=== PATIENT | male | born 1935 | race Caucasian/White ===

== ENCOUNTER 2016-10-27 15:36 | Inpatient (IN) ==
[2016-10-27] MEDS ORDERED: FUROSEMIDE 40 MG/4 ML VIAL IV ONE (16:09)
[2016-10-27] MEDS ORDERED: FLUCONAZOLE 200 MG/100 ML BAG IV SCH ×2 (16:15→19:11)
[2016-10-27 16:37] LABS: Basophils # (Auto) 0 K/mcL (0.0-0.3); Basophils % (Auto) 0.3 % (0.0-2.0); Eosinophils # (Auto) 0.1 K/mcL (0.0-0.7); Granulocytes % (Auto) 80.3 % (38.0-78.0); Lymphocytes # (Auto) 1.4 K/mcL (1.5-4.8); Lymphocytes % (Auto) 10.8 % (15.5-49.0); Mean Corpuscular HGB Conc 31.3 g/dL (31.0-36.0); Mean Corpuscular Hemoglobin 27.8 pg (26.0-34.0); Monocytes % (Auto) 7.6 % (1.0-12.0); Platelet Count 199 K/mcL (140-440); RBC 5.06 M/mcL (4.50-5.90); Red Cell Distribution Width 18.9 % (11.5-14.5)
--- NOTE | 2016-10-27 16:49 | XRay Report ---
CLINICAL INFORMATION: Dyspnea COMPARISON: 01/30/2013 FINDINGS: The heart is mildly enlarged - increased. Mediastinum is unremarkable. Pulmonary vessels are mildly distended. A 9 cm mass versus loculated pleural effusion in the right apex is new from the previous study. Scattered scarring in both mid and lower lung field seen - as before. No definite effusion IMPRESSION: 9 cm mass versus loculated pleural effusion in the right lung apex. Suggest chest CT Mild CHF Scattered scarring both mid and lower lungs stable Interpreted and Authenticated by: Medardo Solorzano 10/27/16
[2016-10-27 17:00] LABS: ALT/SGPT 12 U/l (0-40); Albumin 3.6 gm/dL (3.2-5.2); Albumin/Globulin Ratio 1.1 (1.0-2.3); Alkaline Phosphatase 95 U/L (39-117); Blood Urea Nitrogen 38 mg/dl (8-23)
[2016-10-27 17:08] LABS: Estimated Average Glucose(eAG) 189 mg/dL; Hemoglobin A1C 8.2 % HGB (4.0-6.0)
--- NOTE | 2016-10-27 18:05 | Emergency Department Note ---
SOB HPI - General Chief Complaint: Shortness of Breath/Dyspnea Stated Complaint: Shortness of breath Time Seen by Provider: 10/27/16 16:08 Source: patient Mode of arrival: wheelchair Limitations: no limitations - History of Present Illness 89-year-old male with 5 days of worsening shortness of breath with cyanosis. Normally he takes 2 L of oxygen 24 hours a day but here he is requiring 5. He reports weakness and short of breath with any exertion such that he has trouble getting out of his recliner and even walking 10 feet. worsening arthritis pain in his hands as well as noted. Denies fever chills nausea vomiting diarrhea. His legs have been restless all night. He is concerned about a rash on his buttocks that he thinks may be shingles but he has had the zoster vaccine. - Related Data Home Medications Medication Instructions Recorded Confirmed albuterol sulfate HFA 90 2 puff INHALATION ONCE PRN g 01/11/15 10/27/16 mcg/actuation aerosol inhaler cyclosporine 0.05 % eye drops in a 1 drp OPHTHALMIC BID drp 01/11/15 10/27/16 dropperette desonide 0.05 % topical cream 1 applic TOPICAL BID PRN g 01/11/15 10/27/16 desoximetasone 0.05 % topical cream 1 applic TOPICAL BID PRN g 01/11/15 dextran 70-hypromellose eye drops 1 drp OPHTHALMIC TID PRN ml 01/11/15 10/27/16 halobetasol propionate 0.05 % 1 applic TOPICAL QDAY PRN g 01/11/15 10/27/16 topical ointment metronidazole 1 % topical gel 1 applic TOPICAL QDAY PRN 63 Days 01/11/15 nitroglycerin 0.4 mg sublingual 0.4 mg SUBLINGUAL Q5-15MIN PRN tab 01/11/1511/07 tablet omeprazole 20 mg capsule,delayed 20 mg PO QDAY 14 Days 01/11/15 10/27/16 release triamcinolone Acetonide Topical 1 each TOPICAL PRN PRN 01/11/15 10/27/16 gabapentin 600 mg tablet 600 mg PO TID tab 01/15/15 10/27/16 fluticasone 250 mcg-salmeterol 50 1 inh INHALATION Q12H 02/20/15 10/27/16 mcg/dose blistr powdr for inhalation Fish Oil/Dha/Epa [Fish Oil 1,200 1 cap PO .QD cap 07/23/15 10/27/16 mg Fish Oil] Flaxseed Oil [Flax Seed Oil] 1,400 mg PO .QD cap 07/23/15 10/27/16 vitamin B complex tablet 1 tab-cap PO QDAY 09/17/15 10/27/16 calcium citrate 250 mg tablet 500 mg PO .3xweekly tab 01/14/16 10/27/16 cranberry extract 300 mg tablet 300 mg PO TID tab 01/14/16 10/27/16 cholecalciferol (vitamin D3) 1,000 1,000 unit PO QDAY cap 03/23/16 10/27/16 unit capsule loratadine 10 mg tablet 10 mg PO QDAY 05/19/16 10/27/16 pravastatin 20 mg tablet 10 mg PO QHS tab 05/19/16 10/27/16 betamethasone dipropionate 0.05 % 1 each TOPICAL PRN PRN 14 Days 10/13/16 topical cream Bumetanide [Bumex] 1 mg PO QDAY 10/27/16 10/27/16 Insulin Glargine,Hum.rec.anlog 42 unit SQ DAILY 10/27/16 10/27/16 [Lantus Solostar] Nebivolol HCl [Bystolic] 5 mg PO DAILY 10/27/16 10/27/16 Previous Rx's Medication Instructions Recorded glipizide 5 mg tablet 2.5 mg PO BID #60 tab 10/12/16 Allergies Allergy/AdvReac Type Severity Reaction Status Date / Time Amoxicillin Allergy Unknown Unknown Verified 10/27/16 15:45 atorvastatin [From Lipitor] Allergy Unknown Unknown Verified 10/27/16 15:45 levofloxacin [From Levaquin] Allergy Unknown Unknown Verified 10/27/16 15:45 tamsulosin [From Flomax] Allergy Unknown Unknown Verified 10/27/16 15:45 tramadol Allergy Unknown unknown Verified 10/27/16 15:45 albuterol sulfate Allergy Unknown Unknown Uncoded 05/19/16 11:40 Aspirin Allergy Unknown Unknown Uncoded 05/19/16 11:40 SULFA (SULFONAMIDES) Allergy Unknown Unknown Uncoded 05/19/16 11:40 Review of Systems All systems ED: reviewed and negative except as stated. Past Medical History - Past Medical History Attestation: Yes: The following information was validated with the patient. Medical history: Reports: arthritis, atrial fibrillation, cancer (Bladder cancer ), COPD, coronary artery disease, DVT, diabetes (With neuropathy and retinopathy ), hyperlipidemia, hypertension, myocardial infarction, renal disease, other ( Chester's esophagus. Hypokalemia. Anemia. Microscopic hematuria. Malignant neoplasm of the bladder. Ulcerative colitis. Vitamin D deficiency. Cerebrovascular disease. BPH) Surgical history ED: Reports: angioplasty/stent, colectomy, knee replacement, other (TURP. Carotid endarterectomy. Ileostomy. low Back surgery.) - Social History smoking status: Former smoker Physical Exam Ill-appearing cyanotic male in some respiratory distress. Normocephalic atraumatic. Conjunctive bilaterally injected mildly. Anicteric. No nasal discharge or congestion. Oropharynx is with dry buccal mucosa. Posterior pharynx is clear. Neck is supple without lymphadenopathy or thyromegaly. Heart is regular rate and rhythm no murmurs appreciated. Lungs are clear to auscultation bilaterally but somewhat shallow. No rales. Fingers and perioral area cyanotic this is improving with increased oxygen therapy via nasal cannula. Abdomen soft nontender nondistended. No peritoneal signs or guarding. +2 radial pulse. +1-2 pedal edema with chronic venous stasis changes. Alert oriented able to answer questions appropriately. Initially diaphoretic but this improved with oxygen therapy. No dysarthria ataxia confusion. Skin exam shows nonspecific rash above the buttock cleft without vesicles or ulcers-is not compatible with shingles. He is also got some serpiginous red rash on his legs with raised red borders consistent with Vicenta -more severe form of this is seen in the groin area with beefy red prominence intertrigonal-odor consistent with yeast as well. - General Limitations: no limitations Course Vital Signs Temperature 97.9 F 10/27/16 15:36 Pulse Rate 121 H 10/27/16 15:36 Respiratory Rate 25 H 10/27/16 15:36 Pulse Oximetry (%) 83 L 10/27/16 15:36 Temperature 98.4 F 10/27/16 23:42 Pulse Rate 100 H 10/28/16 06:45 Respiratory Rate 19 10/28/16 06:45 Blood Pressure 137/84 10/28/16 06:01 Pulse Oximetry (%) 91 10/28/16 06:45 Shortness of Breath/Dyspnea - Lab Data Lab results reviewed: Yes I reviewed the patient's lab results. Result diagrams: 10/28/16 03:43 10/28/16 03:43 Lab Results 10/27/16 10/27/16 10/27/16 Range/Units 15:49 15:49 15:49 WBC 12.9 H (4.5-11.0) K/mcL RBC 5.06 (4.50-5.90) M/mcL Hgb 14.1 (13.5-16.5) g/dL Hct 45.1 (41.0-55.0) % MCV 89.0 (80.0-100.0) fL MCH 27.8 (26.0-34.0) pg MCHC 31.3 (31.0-36.0) g/dL RDW 18.9 H (11.5-14.5) % Plt Count 199 (140-440) K/mcL MPV 9.3 (7.4-10.4) fL Gran % 80.3 H (38.0-78.0) % Lymph % (Auto) 10.8 L (15.5-49.0) % [place] % (Auto) 7.6 (1.0-12.0) % Eos % (Auto) 1.0 (0.0-7.0) % Baso % (Auto) 0.3 (0.0-2.0) % Gran # 10.4 H (1.8-8.0) K/mcL Lymph # 1.4 L (1.5-4.8) K/mcL [place] # 1.0 H (0.1-0.9) K/mcL Eos # 0.1 (0.0-0.7) K/mcL Baso # 0 (0.0-0.3) K/mcL VBG Lactic Acid 2.9 H (0.5-2.2) mmol/L Sodium 133 (133-145) mmol/L Potassium 4.9 (3.3-5.1) mmol/L Chloride 95 L (96-108) mmol/L Carbon Dioxide 19 L (22-30) mmol/L Anion Gap 19.0 H (8-16) BUN 38 H (8-23) mg/dl Creatinine 1.7 H (0.7-1.2) mg/dl GFR Calculation 38 Glucose 186 H (70-105) mg/dL Hemoglobin A1c 8.2 H (4.0-6.0) % HGB Estim Average Glucose 189 mg/dL Calcium 9.0 (8.6-10.4) mg/dl Total Bilirubin 0.8 (0.0-1.0) mg/dL AST 17 (0-37) U/l ALT 12 (0-40) U/l Alkaline Phosphatase 95 (39-117) U/L Troponin T (0-0.03) ng/ml NT-Pro-B Natriuret Pep 7715.0 H (0-450) pg/ml Total Protein 6.8 (5.9-8.4) gm/dL Albumin 3.6 (3.2-5.2) gm/dL Globulin 3.2 (2.2-3.7) gm/dL Albumin/Globulin Ratio 1.1 (1.0-2.3) /11/07 Range/Units 15:49 WBC (4.5-11.0) K/mcL RBC (4.50-5.90) M/mcL Hgb (13.5-16.5) g/dL Hct (41.0-55.0) % MCV (80.0-100.0) fL MCH (26.0-34.0) pg MCHC (31.0-36.0) g/dL RDW (11.5-14.5) % Plt Count (140-440) K/mcL MPV (7.4-10.4) fL Gran % (38.0-78.0) % Lymph % (Auto) (15.5-49.0) % [place] % (Auto) (1.0-12.0) % Eos % (Auto) (0.0-7.0) % Baso % (Auto) (0.0-2.0) % Gran # (1.8-8.0) K/mcL Lymph # (1.5-4.8) K/mcL [place] # (0.1-0.9) K/mcL Eos # (0.0-0.7) K/mcL Baso # (0.0-0.3) K/mcL VBG Lactic Acid (0.5-2.2) mmol/L Sodium (133-145) mmol/L Potassium (3.3-5.1) mmol/L Chloride (96-108) mmol/L Carbon Dioxide (22-30) mmol/L Anion Gap (8-16) BUN (8-23) mg/dl Creatinine (0.7-1.2) mg/dl GFR Calculation Glucose (70-105) mg/dL Hemoglobin A1c (4.0-6.0) % HGB Estim Average Glucose mg/dL Calcium (8.6-10.4) mg/dl Total Bilirubin (0.0-1.0) mg/dL AST (0-37) U/l ALT (0-40) U/l Alkaline Phosphatase (39-117) U/L Troponin T 0.03 (0-0.03) ng/ml NT-Pro-B Natriuret Pep (0-450) pg/ml Total Protein (5.9-8.4) gm/dL Albumin (3.2-5.2) gm/dL Globulin (2.2-3.7) gm/dL Albumin/Globulin Ratio (1.0-2.3) ABG shows pH 7.47 PCO2 34 PO2 of 65 on 5 L via facemask - Radiology Data Radiology results reviewed: Yes I reviewed the patient's radiology results. Chest x-ray shows a large 9 cm mass upper right lobe, along with stigmata of COPD. CT scan without contrast is done secondary to chronic renal disease this is read by Dr. 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 The CT read out came after the patient had already left our department and so I relayed these results to Dr. Blackwood the hospitalist - EKG Data EKG attestation: Yes I reviewed and interpreted this EKG. 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 was also given fluconazole for the yeast infection and furosemide for CHF After getting his results back I discussed his case with Dr. Blackwood who agreed to accept the patient for further care of the above-noted diagnosis Disposition: Xfer As Inpt ([facility]) Condition: Serious
[2016-10-27] MEDS ORDERED: HYPROMELLOSE OPHTHALMIC PRN (19:11)
[2016-10-27] MEDS ORDERED: MAGNESIUM HYDROXIDE 30 ML ORAL.SUSP PO PRN (19:11)
[2016-10-27] MEDS ORDERED: DEXTROSE 50% 50 ML VIAL IV PRN (19:11)
[2016-10-27] MEDS ORDERED: BISACODYL 10 MG SUPP.RECT PR PRN (19:11)
[2016-10-27] MEDS ORDERED: NALOXONE HCL 0.4 MG/ML VIAL IV PRN (19:11)
[2016-10-27] MEDS ORDERED: DEXTRAN OPHTHALMIC PRN (19:11)
[2016-10-27] MEDS ORDERED: ACETAMINOPHEN 325 MG TABLET PO PRN (19:11)
[2016-10-27] MEDS ORDERED: VANCOMYCIN PER PHARMACY IV SCH (19:11)
[2016-10-27] MEDS ORDERED: VANCOMYCIN 1,000 MG in 0.9 % SODIUM CHLORIDE 250 ML IV ONE (19:11)
[2016-10-27] MEDS ORDERED: ONDANSETRON 4 MG/2 ML VIAL IV PRN (19:11)
[2016-10-27] MEDS ORDERED: NITROGLYCERIN 0.4 MG TAB.SUBL SL PRN (19:11)
[2016-10-27] MEDS ORDERED: HYDROmorphone 2 MG/ML SYRINGE IV PRN (19:11)
[2016-10-27] MEDS ORDERED: [UNRECOGNIZED DRUG - OTHER] OPHTHALMIC PRN (19:11)
[2016-10-27] MEDS: IPRATROPIUM 2.5 ML AMPUL.NEB NEB SCH ×2 (20:08→23:27)
[2016-10-27] MEDS ORDERED: VANCOMYCIN 500 MG VIAL ONE (20:37)
[2016-10-27] MEDS ORDERED: PRAVASTATIN 20 MG TABLET PO SCH (21:00)
[2016-10-27] MEDS: FLUTICASONE/SALMETEROL 250/50 INHALER #14 INH SCH (21:41)
[2016-10-27] MEDS: INSULIN LISPRO 1 UNIT/0.01 ML UNIT SQ SCH (21:42)
[2016-10-27] MEDS ORDERED: IMIPENEM/CILASTATIN SODIUM 500 MG VIAL IV ONE (21:54)
[2016-10-27] MEDS: GABAPENTIN 300 MG CAPSULE PO SCH (21:55)
[2016-10-27] MEDS: HEPARIN 5,000 UNIT/ML VIAL SQ SCH (21:55)
[2016-10-27] MEDS: SIMVASTATIN 10 MG TABLET PO SCH (21:55)
--- NOTE | 2016-10-27 21:59 | Internal Med History&Physical ---
Medical - H&P: [facility] Patient information: Note initiated : 10/27/16 at 9:55 pm Service Date, if different from initiated Date: [] Patient: Partha Samuels 81 y/o M admitted on 10/27/16 for Shortness of breath. Chief Complaint: [] History of present illness: Mr. Samuels is a 81 year old male with multiple medical issues. presented to the ER with shortness of breath, increased generalized pain, and subjective sensation of pain and fever. The patient notes that he was doing well approximately upto 2 weeks ago, and since then he has been having gradual decline in his condition. He has intermittent bouts of shortness of breath. He admits to having cough with whitish greyish sputum, fever with temp of 99, chills and intermittent rigors. The patient is a poor historian and had significant tangentiality to his history. He notes that some times he gets sob while passing urine. but denies any burning urine, foul smelling urine or increased frequency of urination. He denies any abdominal pain, nausea and or vomiting. He has a ileostomy in place, but denies any change in bowel habits. The patient in the ER was noted to be tachycardic and tachypneic, the patient had elevated wbc count, elevated lactic acid, elevated gap, pt was at baseline renal function, had elevated BNP. CXR was reported as possible abscess in the right upper lobe. CT scan of the Chest shows a cavitary mass in the right upper lobe (night hawk read). Patient as admitted to the hospital with diagnosis of PNA, new onset mass (squamous cell Ca) All systems: reviewed and no additional remarkable complaints except as stated ( as in HPI) Medical - H&P: [facility] Medical history: Medical History (Last Updated 10/27/16 @ 18:20 by Kenton Chester MD) Cellulitis (Acute) Chester esophagus (Chronic) Hypokalemia (Chronic) Edema (Chronic) Anemia (Chronic) History of bladder surgery (Chronic 04/17/14) Microscopic hematuria (Chronic 01/27/12) Old myocardial infarction (Chronic) Microalbuminuria (Chronic 10/27/11) Malignant neoplasm of bladder (Chronic 08/04/13) 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) Pain in joint, lower leg (Chronic) Nocturia (Chronic 01/26/12) Obesity (Chronic) Peripheral neuropathy (Chronic) Retinopathy, diabetic, background (Chronic) Ileostomy care (Chronic) Ulcerative colitis (Chronic) Vitamin D deficiency (Chronic) Hypertension, essential (Chronic) Diabetes mellitus with ophthalmic manifestation (Chronic) Hypertensive chronic kidney disease (Chronic) HTN (hypertension) (Chronic) Hematuria, gross (Chronic) 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) Diabetes mellitus, type II (Chronic) Hyperlipidemia (Chronic 10/27/11) Degenerative disc disease, cervical (Chronic) Deep vein thrombosis (Chronic) [place] ulcerative colitis (Chronic) Chronic obstructive pulmonary disease (Chronic) Chronic kidney disease, stage III (moderate) (Chronic) Cerebrovascular disease (Chronic) Bronchitis (Chronic) Benign prostatic hypertrophy with lower urinary tract symptoms (LUTS) (Chronic) Atrial fibrillation (Chronic) Surgical history: Past Surgical History (Last Reviewed 10/13/16 @ 15:08 by Sarah Villalta MD) History of transurethral destruction of bladder lesion (Chronic 04/17/14) History of percutaneous coronary intervention (Chronic) History of carotid endarterectomy (Chronic) History of knee surgery (Chronic) History of knee replacement procedure of left knee (Chronic) History of knee replacement procedure of right knee (Chronic 12/18/11) History of ileostomy (Chronic) History of colectomy (Chronic) History of heart artery stent (Chronic 04/17/14) S/P skin biopsy (Chronic) History of tonsillectomy (Chronic) History of back surgery (Chronic) History of adenoidectomy (Chronic) Family history: reviewed and not pertinent Medical - H&P: Meds Home Medications Medication Instructions Recorded Confirmed Type albuterol sulfate HFA 90 2 puff INHALATION ONCE PRN g 01/11/15 10/27/16 History mcg/actuation aerosol inhaler cyclosporine 0.05 % eye drops in a 1 drp OPHTHALMIC BID drp 01/11/15 10/27/16 History dropperette desonide 0.05 % topical cream 1 applic TOPICAL BID PRN g 01/11/15 10/27/16 History desoximetasone 0.05 % topical cream 1 applic TOPICAL BID PRN g 01/11/15 History dextran 70-hypromellose eye drops 1 drp OPHTHALMIC TID PRN ml 01/11/15 History halobetasol propionate 0.05 % 1 applic TOPICAL QDAY PRN g 01/11/15 10/27/16 History topical ointment metronidazole 1 % topical gel 1 applic TOPICAL QDAY PRN 63 Days 01/11/15 History nitroglycerin 0.4 mg sublingual 0.4 mg SUBLINGUAL Q5-15MIN PRN tab 01/11/1511/07 History tablet omeprazole 20 mg capsule,delayed 20 mg PO QDAY 14 Days 01/11/15 10/27/16 History release triamcinolone Acetonide Topical TOPICAL PRN 01/11/15 10/13/16 History gabapentin 600 mg tablet 600 mg PO TID tab 01/15/15 10/27/16 History fluticasone 250 mcg-salmeterol 50 1 inh INHALATION Q12H 02/20/15 10/27/16 History mcg/dose blistr powdr for inhalation Fish Oil/Dha/Epa [Fish Oil 1,200 1 cap PO .QD cap 07/23/15 10/27/16 History mg Fish Oil] Flaxseed Oil [Flax Seed Oil] 1,400 mg PO .QD cap 07/23/15 10/27/16 History vitamin B complex tablet 1 tab-cap PO QDAY 09/17/15 10/27/16 History calcium citrate 250 mg tablet 500 mg PO .3xweekly tab 01/14/16 10/27/16 History cranberry extract 300 mg tablet 300 mg PO TID tab 01/14/16 10/27/16 History cholecalciferol (vitamin D3) 1,000 1,000 unit PO QDAY cap 03/23/16 10/27/16 History unit capsule loratadine 10 mg tablet 10 mg PO QDAY 05/19/16 10/27/16 History pravastatin 20 mg tablet 10 mg PO QHS tab 05/19/16 10/27/16 History glipizide 5 mg tablet 2.5 mg PO BID #60 tab 10/12/16 10/27/16 Rx betamethasone dipropionate 0.05 % TOPICAL 14 Days 10/13/16 10/13/16 History topical cream Bumetanide [Bumex] 1 mg PO QDAY 10/27/16 10/27/16 History Insulin Glargine,Hum.rec.anlog 42 unit SQ DAILY 10/27/16 10/27/16 History [Lantus Solostar] Nebivolol HCl [Bystolic] 5 mg PO DAILY 10/27/16 10/27/16 History Allergies Allergy/AdvReac Type Severity Reaction Status Date / Time Amoxicillin Allergy Unknown Unknown Verified 10/27/16 15:45 atorvastatin [From Lipitor] Allergy Unknown Unknown Verified 10/27/16 15:45 levofloxacin [From Levaquin] Allergy Unknown Unknown Verified 10/27/16 15:45 tamsulosin [From Flomax] Allergy Unknown Unknown Verified 10/27/16 15:45 tramadol Allergy Unknown unknown Verified 10/27/16 15:45 albuterol sulfate Allergy Unknown Unknown Uncoded 05/19/16 11:40 Aspirin Allergy Unknown Unknown Uncoded 05/19/16 11:40 SULFA (SULFONAMIDES) Allergy Unknown Unknown Uncoded 05/19/16 11:40 Medical - H&P: Exam - Constitutional Vitals: Temp Pulse Resp BP Pulse Ox 97.9 F 96 H 16 137/90 93 10/27/16 15:36 10/27/16 20:16 10/27/16 20:16 10/27/16 18:31 10/27/16 20:11 Exam: GENERAL: The patient is a well-developed, well-nourished in no apparent distress. Is alert and oriented x3. VITAL SIGNS: Reviewed and as noted elsewhere. HEENT: Head is normocephalic and atraumatic. Extraocular muscles are intact. Pupils are equal, round, and reactive to light. Nares appeared normal. Mouth appears any without lesions. Mucous membranes are moist. NECK: Normal to inspection, Supple, No lymphadenopathy or thyromegaly. LUNGS: Air entry equal on both sides, no wheezing, crackles or rhonchi noted. No accessory muscles of respiration HEART: Regular rate and rhythm irregular , S1 and S2 heard, no Gallop, S3 or Rub Noted, systolic murmur tricuspid region. Edema [place] extremities +++ ABDOMEN: Soft, nontender, and nondistended. Positive bowel sounds. No hepatosplenomegaly was noted. EXTREMITIES: No cyanosis, clubbing, rash, lesions or edema. NEUROLOGIC: Cranial nerves II through XII are grossly intact. Motor and Sensory System Grossly Intact PSYCHIATRIC: Normal affect, Normal Mood. Appropriate Behavior. SKIN: No ulceration or wounds noted, No jaundice, significant perineal rash noted Medical - H&P: Reslt - Labs CBC & Chem 7: 10/27/16 15:49 10/27/16 15:49 - ABG Interpretation ABG results: resp aklalosis, metabolic alkalosis, high gap acidosis. Medical - H&P: A/P - Narrative A/P Narrative: Left lung mass / abscess/ : Will review results with radiology in AM, will consider Bx vs drainage. If it is indeed a squamous cell Ca based on appearance , Lymph node and satellite lesion, then the patient would have very poor prognosis given overall poor health. COPD: On 2L oxygen, CT shows severe emphysematous Pneumonia: Elevated wbc, elevated lactic acid and mass in lung make post obstructive pna vs abscess. IV vanco and imipenum for now to cover HCAP. (pt allergic to amox) Recheck lactic acid in AM, pt has normal bp and has ckd, which can cause elevated renal function. Recheck lactic acid in AM Sepsis: due to pna, treat underlying condition. Mointor. CHF/ Cor Pulmonale: patient has elevated bnp, edematous extremities. IV lasix for now, continue home dose of bumex, elizabeth in place I/O mointoring. CAD: last stress test shows inferior lateral reversible ischemic region, not cath done as per last card note. medical management planned. h/o Ca Bladder: s/p cisplatin, patient did not tolerate course, follows with urology. DM: Sliding scale of insulin HTN: Resume home medications. monitor bp. Ulcerative colitis: patient is s/p colectomy has a ileostomy in place. AFib: rate controlled with beta blockers, not a candidate for anticoagulation as per last cardiolgoy note. DVT hep sq Diet cardiac, diabetic, Social History - Tobacco smoking status: Former smoker - Alcohol alcohol intake frequency: former alcohol drinker
[2016-10-27] MEDS: 0.9 % SODIUM CHLORIDE 10 ML SYRINGE IV SCH (22:02)
[2016-10-27] MEDS: IMIPENEM/CILASTATIN SODIUM 500 MG in 0.9 % SODIUM CHLORIDE 100 ML IV SCH (22:04)
[2016-10-28] MEDS: IPRATROPIUM 2.5 ML AMPUL.NEB NEB SCH ×6 (02:59→23:11)
[2016-10-28 04:59] LABS: Appearance,Urine HAZY; Bacteria,Urine 0 /hpf (0); Bilirubin,Urine NEG (NEG); Color,Urine YELLOW; Glucose,Urine (UA) 50 mg/dL (NEG); Leukocyte Esterase,Urine 25 /uL (NEG); Mucus,Urine FEW /hpf (0); Nitrate,Urine NEG (NEG); Protein,Urine 30 mg/dL (NEG); Specific Gravity,Urine 1.014 (1.000-1.035); Urine Blood 0.03 mg/dL (<0.03); Urine Hyaline Cast 3 /lpf (0-2); Urine RBC 18 /hpf (0-1); Urine Squamous Epithelial Cell 0 /hpf (0-4); Urine Transitional Epi Cells < 1 /hpf (0-2); Urine WBC 3 /hpf (0-4); Urobilinogen,Urine NEG (NEG)
[2016-10-28 05:10] LABS: Basophils # (Auto) 0 K/mcL (0.0-0.3); Basophils % (Auto) 0.4 % (0.0-2.0); Eosinophils # (Auto) 0.2 K/mcL (0.0-0.7); Eosinophils % (Auto) 1.7 % (0.0-7.0); Granulocytes % (Auto) 82.4 % (38.0-78.0); Lymphocytes % (Auto) 8.6 % (15.5-49.0); Mean Cell Volume 89.3 fL (80.0-100.0); Mean Corpuscular HGB Conc 31.5 g/dL (31.0-36.0); Mean Corpuscular Hemoglobin 28.1 pg (26.0-34.0); Monocytes # (Auto) 0.8 K/mcL (0.1-0.9); Monocytes % (Auto) 6.9 % (1.0-12.0); Platelet Count 186 K/mcL (140-440); RBC 4.79 M/mcL (4.50-5.90); Red Cell Distribution Width 18.7 % (11.5-14.5)
[2016-10-28 05:32] LABS: ALT/SGPT 11 U/l (0-40); Albumin 3.1 gm/dL (3.2-5.2); Albumin/Globulin Ratio 0.9 (1.0-2.3); Alkaline Phosphatase 88 U/L (39-117); Bilirubin,Direct 0.3 mg/dL (0.0-0.3); Blood Urea Nitrogen 36 mg/dl (8-23); Gamma Glutamyl Transpeptidase 71 U/L (8-61); Magnesium 1.6 mg/dL (1.6-2.5); Uric Acid 11.2 mg/dL (2.5-8.0)
[2016-10-28 06:01] LABS: Hemoglobin A1C 8.3 % HGB (4.0-6.0)
[2016-10-28] MEDS ORDERED: MAGNESIUM SULFATE 2 GM/50 ML BAG IV ONE (08:06)
[2016-10-28] MEDS: 0.9 % SODIUM CHLORIDE 10 ML SYRINGE IV SCH ×3 (08:11→22:12)
[2016-10-28] MEDS: INSULIN LISPRO 1 UNIT/0.01 ML UNIT SQ SCH ×4 (08:11→20:47)
[2016-10-28] MEDS: HEPARIN 5,000 UNIT/ML VIAL SQ SCH ×2 (08:31→20:31)
[2016-10-28] MEDS: GABAPENTIN 300 MG CAPSULE PO SCH ×3 (08:32→20:31)
[2016-10-28] MEDS: PANTOPRAZOLE 40 MG TABLET PO SCH (08:32)
[2016-10-28] MEDS: LORATADINE 10 MG TABLET PO SCH (08:32)
[2016-10-28] MEDS: BUMETANIDE 1 MG TABLET PO SCH (08:32)
[2016-10-28] MEDS: FLUTICASONE/SALMETEROL 250/50 INHALER #14 INH SCH ×3 (08:33→20:32)
[2016-10-28] MEDS: IMIPENEM/CILASTATIN SODIUM 500 MG in 0.9 % SODIUM CHLORIDE 100 ML IV SCH ×2 (08:36→20:33)
[2016-10-28] MEDS ORDERED: NEBIVOLOL HCL 5 MG PO SCH (09:00)
[2016-10-28] MEDS ORDERED: OMEPRAZOLE 20 MG CAPSULE PO SCH (09:00)
--- NOTE | 2016-10-28 10:52 | Internal Med Progress Note ---
Medical - PN: Subj Patient information: Note initiated : 10/28/16 at 10:38 am Service Date, if different from initiated Date: [] Patient: Partha Samuels 81 y/o M admitted on 10/27/16 for SOB/Lt Lung Mass, COPD , PNA, Sepsis, CHF. Chief Complaint: [] Interval history: Mr. Samuels is a 81 year old male with multiple medical issues. presented to the ER with shortness of breath, increased generalized pain, and subjective sensation of pain and fever. The patient notes that he was doing well approximately upto 2 weeks ago, and since then he has been having gradual decline in his condition. He has intermittent bouts of shortness of breath. He admits to having cough with whitish greyish sputum, fever with temp of 99, chills and intermittent rigors. The patient is a poor historian and had significant tangentiality to his history. He notes that some times he gets sob while passing urine. but denies any burning urine, foul smelling urine or increased frequency of urination. He denies any abdominal pain, nausea and or vomiting. He has a ileostomy in place, but denies any change in bowel habits. The patient in the ER was noted to be tachycardic and tachypneic, the patient had elevated wbc count, elevated lactic acid, elevated gap, pt was at baseline renal function, had elevated BNP. CXR was reported as possible abscess in the right upper lobe. CT scan of the Chest shows a cavitary mass in the right upper lobe (night hawk read). Patient as admitted to the hospital with diagnosis of PNA, new onset mass (squamous cell Ca) October 27: Patient seen examined, no acute overnight events, remains of 5L oxygen. He denies any new concerns. I reviewed the CT findings with him of possible mass vs abscess. I reviewed the CT with our radiologist who feels that this is abscess rather than a tumor. Night hawk read mentions likely malignant tumor. The radiologist does not feel that the mass/ abscess can be drained given severe empysema and risk of coverting abscess to empyema. patient remains on broad spectrum ABX vanco and imipenum. The patient remains of lasix for chf and corpulmonale. Hemodynamically stable. I have consulted pulmonary for their guidance. Plan to sent fungal culture and stain, also afb and quantiferon which has been ordered. Pt placed in air borne isolation. Pertinent ROS: Denies headache, dizziness Denies chest pain, palpitations cough and sob improving. Denies abdominal pain, nausea or vomiting. - Constitutional Vitals: Vital Signs Temp Pulse Resp BP Pulse Ox 99.5 F H 98 H 16 130/79 90 10/28/16 07:15 10/28/16 10:15 10/28/16 10:15 10/28/16 10:01 10/28/16 10:16 Period Temp Pulse Resp BP Sys/[place] Pulse Ox Last 24 Hr 97.7 F-99.5 F 68-104 15-24 120-150/77-104 89-99 Intake and Output 10/27/16 10/28/16 10/28/16 21:59 05:59 13:59 Intake Total 300 / 300 300 / 300 100 / 100 Output Total 500 / 750 1140 / 1140 80 / 80 Balance -200 / -450 -840 / -840 20 / 20 Intake & Output: Intake & Output 10/27/16 10/28/16 10/28/16 21:59 05:59 13:59 Intake Total 300 / 300 300 / 300 100 / 100 Output Total 500 / 750 1140 / 1140 80 / 80 Balance -200 / -450 -840 / -840 20 / 20 Intake: IV 100 / 100 100 / 100 Primaxin 500 mg In Sodium 100 / 100 Chloride 0.9% 100 ml @ 100 mls/hr IV Q12H [facility] Rx #:[id number] Oral 200 / 200 300 / 300 Output: Urine Catheter Amount 350 / 350 940 / 940 80 / 80 Void Amount 150 / 400 Stool 200 / 200 Exam: Constitutional; Afebrile, cooperative, alert, not in distress. Eyes- No icterus, , No periorbital swelling Ears- Ext ear normal, hearing normal to conversation. Neck- Midline trachea, supple Respiratory system: Air Entry equal on both sides, decreased air entry. mild basilar crackles. Juan Ramon edema CVS- Rate normal rhythm irregular, S1,S2 heard, no gallop, no rub. Abdomen- Soft nontender abdomen, no organomegaly, no tenderness, no guarding or rigidity, [employer]- AOOx3, moving all extremities, no gross focal deficit noted. Medical - PN: Obj Da - Labs CBC & Chem 7: 10/28/16 03:43 10/28/16 03:43 Labs: Abnormal Lab Results 10/28/16 10/28/16 10/28/16 03:43 03:43 03:43 RDW Gran % Lymph % (Auto) Gran # Lymph # PT 18.5 H INR 1.5 H BUN 36 H Creatinine 1.6 H Glucose 128 H Hemoglobin A1c 8.3 H Uric Acid 11.2 H GGT 71 H Lactate Dehydrogenase 348 H Albumin 3.1 L Albumin/Globulin Ratio 0.9 L Urine Protein Urine Glucose (UA) Urine Occult Blood Ur Leukocyte Esterase Urine RBC Hyaline Casts 10/28/16 10/28/16 03:43 03:20 RDW 18.7 H Gran % 82.4 H Lymph % (Auto) 8.6 L Gran # 9.1 H Lymph # 1.0 L PT INR BUN Creatinine Glucose Hemoglobin A1c Uric Acid GGT Lactate Dehydrogenase Albumin Albumin/Globulin Ratio Urine Protein 30 A Urine Glucose (UA) 50 A Urine Occult Blood 0.03 A Ur Leukocyte Esterase 25 A Urine RBC 18 H Hyaline Casts 3 H Meds: Medications Acetaminophen (Tylenol) 650 mg PO Q4-6HP PRN PRN Reason: PAIN/FEVER > 101 Bisacodyl (Dulcolax) 10 mg IN Q2-3DAYS PRN PRN Reason: Constipation Bumetanide (Bumex) 1 mg PO QDAY [facility] Last Admin: 10/28/16 08:32 Dose: 1 mg Dextrose (Dextrose 50%) 0 ml IV UD PRN PRN Reason: Hypoglycemia Diagnostic Test (Pha) (Accu-Chek) 1 each FS ACHS [facility] Last Admin: 10/28/16 08:10 Dose: 1 each Gabapentin (Neurontin) 600 mg PO TID [facility] Last Admin: 10/28/16 08:32 Dose: 600 mg Heparin Sodium (Porcine) (Heparin) 5,000 unit SQ Q12 [facility] Last Admin: 10/28/16 08:31 Dose: 5,000 unit Hydromorphone HCl (Dilaudid) 0.5 mg IV Q2HP PRN PRN Reason: Pain Imipenem/Cilastatin Sodium 500 (mg/ Sodium Chloride) 100 mls @ 100 mls/hr IV Q12H [facility] Last Infusion: 10/28/16 09:46 Dose: Infused Vancomycin HCl 1,500 mg/ (Sodium Chloride) 500 mls @ 333.3 mls/hr IV Q24H [facility] Insulin Human Lispro (Humalog) 0 unit SQ ACHS [facility]TTE PRN Reason: Protocol Last Admin: 10/28/16 08:11 Dose: Not Given Ipratropium [place] (Atrovent) 2.5 ml NEB Q4HRT [facility] Last Admin: 10/28/16 07:22 Dose: 2.5 ml Loratadine (Claritin) 10 mg PO QDAY [facility] Last Admin: 10/28/16 08:32 Dose: 10 mg Magnesium Hydroxide (Milk Of Magnesia) 30 ml PO DAILYP PRN PRN Reason: Constipation Naloxone HCl (Narcan) 0.1 mg IV Q2MIN PRN PRN Reason: Opiate Reversal Nitroglycerin (Nitrostat) 0.4 mg SL Q5-15MIN PRN PRN Reason: chest pain Non-Formulary Medication (Dextran 70/Hypromellose [Artificials Tears Drops]) 1 drp OPHTHALMIC TID PRN PRN Reason: dry eyes Ondansetron HCl (Zofran) 4 mg IV Q4-6HP PRN PRN Reason: Nausea And Vomiting Pantoprazole Sodium (Protonix) 40 mg PO QAMAC [facility] Last Admin: 10/28/16 08:32 Dose: 40 mg Nebivolol Hcl [ (Bystolic] 5 Mg) 1 dose PO BID [facility] Bismuth Subgallate ( (Devrom) 200 Mg Tab) 2 dose PO TIDPC [facility] Fluticasone/Salmeterol (Advair 250-50 Diskus) 1 puff INH Q12 [facility] Last Admin: 10/28/16 08:33 Dose: Not Given Simvastatin (Zocor) 10 mg PO HS [facility] Last Admin: 10/27/16 21:55 Dose: 10 mg Sodium Chloride (Saline Flush) 10 ml IV Q8 [facility] Last Admin: 10/28/16 08:11 Dose: 10 ml Vancomycin HCl (Vancomycin Per Pharmacy) 1 order IV UD [facility] Medical - PN: A/P - Time Spent With Patient Total time spent is greater than 50% in coordination of care (as documented) at patient's floor/unit and/or counseling patient: - Narrative A/P Narrative: A/P Narrative: Left lung mass / abscess/ : Drainage not possible as per radiology, Will get pulm consult and see if bronchoscopic drainage / access or biopsy possible to ascertain the diagnosis. Acute on Chr Resp Failure: At home on 2L, presently on 5,. due to copd, chf, and pna. COPD: On 2L oxygen at home, CT shows severe emphysematous Pneumonia: wbc improved, continue vanco and imipenum (mrsa screen positive) will await cultures. Pulm consult, will send workup for tb, fungal culture and stain. Sepsis: due to pna, improving, urine cx pending. CHF/ Cor Pulmonale: patient has elevated bnp, edematous extremities. IV lasix for now, continue home dose of bumex, elizabeth in place I/O mointoring. CAD: last stress test shows inferior lateral reversible ischemic region, not cath done as per last card note. medical management planned. NO CP. h/o Ca Bladder: s/p cisplatin, patient did not tolerate course, follows with urology. DM: Sliding scale of insulin HTN: Resume home medications. monitor bp. Ulcerative colitis: patient is s/p colectomy has a ileostomy in place. AFib: rate controlled with beta blockers, not a candidate for anticoagulation as per last cardiology note. DVT hep sq Diet cardiac, diabetic, Medical - PN: Qual - VTE Deep Vein Thrombosis/Pulmonary Embolism Present on Admission: No
[2016-10-28] MEDS: NEBIVOLOL HCL 5 MG PO SCH ×2 (10:53→20:35)
[2016-10-28] MEDS: BISMUTH SUBGALLATE PO SCH ×2 (12:40→17:45)
--- NOTE | 2016-10-28 13:41 | Cat Scan Report ---
CLINICAL INFORMATION: Shortness of breath COMPARISON: 03/02/[address] TECHNIQUE: 2.5 mm axial slices were obtained from the lung apices through the bases without intravenous contrast. Sagittal, coronal and axial reformatted images were processed and reviewed at bone, lung and soft tissue windows. 7 mm axial MIP images were also reconstructed. FINDINGS: Pulmonary parenchymal windows again show severe centrilobular emphysema changes featuring elevated lung volumes, chronic bronchitis and multiple bullae replacing most of the upper lobes with scattered bullae in the right middle and both lower lobes. There is now fluid almost totally filling a large (9 cm) pre-existing large bullae in the lateral right lung apex. The perales of bullae are mildly thickened and nodular compatible with inflammation. A 5 x 2 cm elongated region of consolidation, in the adjacent inferior lung parenchyma almost certainly represents pneumonia rather than malignancy. There is mild interstitial disease in the periphery of both lungs - new from the previous study and is suggestive of edema. Central pulmonary artery is enlarged - 4 cm diameter. It has increased from previous study, bowel are today's exam the peripheral pulmonary arteries have also increased in diameter. This in conjunction, with peripheral interstitial atypically distributed edema is compatible with superimposed CHF. The heart is moderately enlarged and there is heavy calcific plaque in the coronary arteries. A few mildly enlarged lymph nodes are seen in the right hilum and right mediastinum. There are 4-5 in number, ranging up to 13 mm in the right peritracheal region. These show slight increase in size and number from the previous study. They're likely benign reactive lymph nodes. Esophagus is normal. The noncontrasted thoracic aorta is normal in contour and caliber. The thyroid is normal. Images through the upper abdomen show small amount of ascites in the anterior perihepatic and perisplenic region. The remaining visualized upper abdominal structures are normal. Bones and soft tissues the chest wall are normal IMPRESSION: 1. Severe centrilobular emphysema. There is now fluid almost totally filling a pre-existing 9 cm bullae in the lateral right upper lobe. This is most supportive of infection. A 5 x 2 cm focal consolidating infiltrate is seen in the adjacent right upper lobe. 2. Atypical CHF. Pre-existing pulmonary hypertension is acknowledged; however, the pulmonary arteries now show global enlargement since the baseline CT and there is interstitial edema atypically distributed due to obstructive lung disease. The heart is moderately enlarged 3. Mildly enlarged lymph nodes in the right hilum and right mediastinum show slight increase in size compared to the prior chest CT seven months prior. These are likely benign reactive lymph nodes. 4. Small amount of ascites - new from comparison CT seven months ago Elevated risk factors for lung carcinoma are appreciated. Consider follow-up chest CT to ensure resolution of these findings after treatment for pneumonia and CHF Interpreted and Authenticated by: Medardo Solorzano 10/28/16
--- NOTE | 2016-10-28 14:59 | Pulmonology Consult Note ---
History of Present Illness Patient information: Note initiated : 10/28/16 at 2:48 pm Service Date, if different from initiated Date: [] Patient: Partha Samuels 81 y/o M admitted on 10/27/16 for SOB/Lt Lung Mass, COPD , PNA, Sepsis, CHF. Chief Complaint: [] Consult date: 10/28/16 Requesting physician: Yusef Blackwood Chief complaint: Cough sputum production chills generally feeling unwell History of present illness: The patient is a pleasant 81-year-old male who presented to [facility] yesterday because of a chief complaint of generally feeling unwell chills cough sputum production. He was evaluated in the emergency room at which time he was found by CT scan to have a large fluid-filled cavity in his right upper lobe. He was considered a candidate for further admission and evaluation. He was initiated on broad-spectrum antibiotics with vancomycin and meropenem having previous recorded infection with methicillin-resistant staph aureus.. The patient states that he has been unwell for almost a year and not enjoying life much he is apparently had recent difficulty with bladder carcinoma contributing to that situation. He has a history of colitis and ileostomy as well. Unfortunately he has smoked an extensive amount in his previous years and has CT demonstrated significant bullous emphysema. The CT scan demonstrates in the right upper lobe a large fluid-filled cavity which in some parts appears to be relatively thin-walled there appears to be a polypoid mass in part of the lesion as well. The patient denies unusual pets plants or birds in the home other significant industrial exposures. He denies unusual travel. He denies having known exposure to tuberculosis or previous PPD skin testing. He indicates that he is unable to lay flat to sleep because of shortness of breath and has been sleeping in his recliner for 1-2 years. He does have some symptomatic gastroesophageal reflux disease as well. He reports a history of atherosclerotic heart disease with previous myocardial infarction and variable amounts dependent edema on diuretic therapy. Medical regimen is as reviewed and outlined in the medical record.. Systems review is otherwise negative except as recorded above on detailed questioning.. On physical examination pleasant gentleman a little hard of hearing in no acute distress. Head is atraumatic and normocephalic. Eyes PERRLA EOMI sclera and conjunctiva clear. Neck supple carotids without bruits. Lungs moderately to markedly decreased breath sounds in all lung matos with occasional rhonchus. Heart regular S1-S2 no gallop or rub jugular venous distention a trace of what looks like partially resolved dependent edema at this time in his hospitalization. The abdomen is soft there is an ileostomy with some ora-ostomy subcutaneous edema or para-ostomy hernia. Bones joints and extremities are without acute changes.. Neurologic exam is nonfocal. Laboratory data is recorded in the electronic medical record by some miracle of the electronic medical record may be recorded hereafter. Showing small white count improved slightly elevated INR and mild renal insufficiency. As well as a significantly elevated BNP in the 7000 range. Impression 81-year-old gentleman with known severe emphysematous chronic obstructive pulmonary disease now presenting with fluid in 1 of these. The differential would include an infected emphysematous bullae normal aerobic bacteria anerobes; chronically infected bullae with aspergillus or avium intracellulare a more acute infection with other Mycobacterium species. Agree with plan for broad-spectrum antibiotics ruling out Mycobacterium tuberculosis collecting sputum for acid-fast bacteria aerobic ordinary bacteria and fungal species. I will discuss and follow with thank you for the opportunity to participate in care of this pleasant patient. Medications and Allergies Home Medications Medication Instructions Recorded Confirmed Type albuterol sulfate HFA 90 2 puff INHALATION ONCE PRN g 01/11/15 10/27/16 History mcg/actuation aerosol inhaler cyclosporine 0.05 % eye drops in a 1 drp OPHTHALMIC BID drp 01/11/15 10/27/16 History dropperette desonide 0.05 % topical cream 1 applic TOPICAL BID PRN g 01/11/15 10/27/16 History desoximetasone 0.05 % topical cream 1 applic TOPICAL BID PRN g 01/11/15 History dextran 70-hypromellose eye drops 1 drp OPHTHALMIC TID PRN ml 01/11/15 History halobetasol propionate 0.05 % 1 applic TOPICAL QDAY PRN g 01/11/15 10/27/16 History topical ointment metronidazole 1 % topical gel 1 applic TOPICAL QDAY PRN 63 Days 01/11/15 History nitroglycerin 0.4 mg sublingual 0.4 mg SUBLINGUAL Q5-15MIN PRN tab 01/11/1511/07 History tablet omeprazole 20 mg capsule,delayed 20 mg PO QDAY 14 Days 01/11/15 10/27/16 History release triamcinolone Acetonide Topical 1 each TOPICAL PRN PRN 01/11/15 10/27/16 History gabapentin 600 mg tablet 600 mg PO TID tab 01/15/15 10/27/16 History fluticasone 250 mcg-salmeterol 50 1 inh INHALATION Q12H 02/20/15 10/27/16 History mcg/dose blistr powdr for inhalation Fish Oil/Dha/Epa [Fish Oil 1,200 1 cap PO .QD cap 07/23/15 10/27/16 History mg Fish Oil] Flaxseed Oil [Flax Seed Oil] 1,400 mg PO .QD cap 07/23/15 10/27/16 History vitamin B complex tablet 1 tab-cap PO QDAY 09/17/15 10/27/16 History calcium citrate 250 mg tablet 500 mg PO .3xweekly tab 01/14/16 10/27/16 History cranberry extract 300 mg tablet 300 mg PO TID tab 01/14/16 10/27/16 History cholecalciferol (vitamin D3) 1,000 1,000 unit PO QDAY cap 03/23/16 10/27/16 History unit capsule loratadine 10 mg tablet 10 mg PO QDAY 05/19/16 10/27/16 History pravastatin 20 mg tablet 10 mg PO QHS tab 05/19/16 10/27/16 History glipizide 5 mg tablet 2.5 mg PO BID #60 tab 10/12/16 10/27/16 Rx betamethasone dipropionate 0.05 % 1 each TOPICAL PRN PRN 14 Days 10/13/16 History topical cream Bumetanide [Bumex] 1 mg PO QDAY 10/27/16 10/27/16 History Insulin Glargine,Hum.rec.anlog 42 unit SQ DAILY 10/27/16 10/27/16 History [Lantus Solostar] Nebivolol HCl [Bystolic] 5 mg PO BID 10/27/16 10/28/16 History Bismuth Subgallate 400 mg PO TIDPC 10/28/16 10/28/16 History Allergies Allergy/AdvReac Type Severity Reaction Status Date / Time Sulfa (Sulfonamide Allergy Intermediate Hives Verified 10/28/16 10:18 Antibiotics) tamsulosin [From Flomax] Allergy Intermediate Other Verified 10/28/16 10:25 ticagrelor [From Brilinta] Allergy Mild Hives Verified 10/28/16 10:25 atorvastatin [From Lipitor] Allergy Unknown Unknown Verified 10/28/16 10:25 levofloxacin [From Levaquin] AdvReac Intermediate Other Verified 10/28/16 10:25 tramadol AdvReac Intermediate Other Verified 10/28/16 10:25 Amoxicillin AdvReac Mild Dizziness Verified 10/28/16 10:25 aspirin AdvReac Mild Other Verified 10/28/16 10:18 albuterol sulfate Allergy Unknown Unknown Uncoded 10/28/16 10:25 Physical Examination Vital signs: Temp Pulse Resp BP Pulse Ox 99.1 F H 100 H 20 98/65 92 10/28/16 12:00 10/28/16 14:03 10/28/16 14:03 10/28/16 14:01 10/28/16 14:09 Results - Laboratory Findings CBC and BMP: 10/28/16 03:43 10/28/16 03:43 PT/INR, D-dimer PT 18.5 sec (11.9-14.5) H 10/28/16 03:43 INR 1.5 (0.9-1.1) H 10/28/16 03:43 Abnormal lab findings: Abnormal Labs 10/28/16 10/28/16 10/28/16 03:20 03:43 03:43 RDW 18.7 H Gran % 82.4 H Lymph % (Auto) 8.6 L Gran # 9.1 H Lymph # 1.0 L PT INR BUN 36 H Creatinine 1.6 H Glucose 128 H Hemoglobin A1c Uric Acid 11.2 H GGT 71 H Lactate Dehydrogenase 348 H Albumin 3.1 L Albumin/Globulin Ratio 0.9 L Urine Protein 30 A Urine Glucose (UA) 50 A Urine Occult Blood 0.03 A Ur Leukocyte Esterase 25 A Urine RBC 18 H Hyaline Casts 3 H 10/28/16 10/28/16 03:43 03:43 RDW Gran % Lymph % (Auto) Gran # Lymph # PT 18.5 H INR 1.5 H BUN Creatinine Glucose Hemoglobin A1c 8.3 H Uric Acid GGT Lactate Dehydrogenase Albumin Albumin/Globulin Ratio Urine Protein Urine Glucose (UA) Urine Occult Blood Ur Leukocyte Esterase Urine RBC Hyaline Casts
[2016-10-28] MEDS: VANCOMYCIN 1,500 MG in 0.9 % SODIUM CHLORIDE 500 ML IV SCH (16:07)
[2016-10-28] MEDS: CLOTRIMAZOLE CRM 1% 1 DOSE TUBE TOPICAL SCH (20:32)
[2016-10-28] MEDS: SIMVASTATIN 10 MG TABLET PO SCH (20:34)
[2016-10-29] MEDS: IPRATROPIUM 2.5 ML AMPUL.NEB NEB SCH ×6 (02:48→23:14)
[2016-10-29 04:40] LABS: Basophils # (Auto) 0 K/mcL (0.0-0.3); Basophils % (Auto) 0 % (0.0-2.0); Eosinophils # (Auto) 0.1 K/mcL (0.0-0.7); Granulocytes % (Auto) 82.2 % (38.0-78.0); Lymphocytes # (Auto) 1.2 K/mcL (1.5-4.8); Lymphocytes % (Auto) 9.1 % (15.5-49.0); Mean Cell Volume 88.9 fL (80.0-100.0); Mean Corpuscular HGB Conc 31.6 g/dL (31.0-36.0); Mean Corpuscular Hemoglobin 28.1 pg (26.0-34.0); Monocytes % (Auto) 7.7 % (1.0-12.0); Platelet Count 182 K/mcL (140-440); RBC 4.83 M/mcL (4.50-5.90); Red Cell Distribution Width 18.8 % (11.5-14.5)
[2016-10-29 04:57] LABS: ALT/SGPT 9 U/l (0-40); Albumin 3.1 gm/dL (3.2-5.2); Alkaline Phosphatase 91 U/L (39-117); Bilirubin,Direct 0.3 mg/dL (0.0-0.3); Blood Urea Nitrogen 36 mg/dl (8-23); Gamma Glutamyl Transpeptidase 70 U/L (8-61); Magnesium 1.9 mg/dL (1.6-2.5)
[2016-10-29] MEDS: 0.9 % SODIUM CHLORIDE 10 ML SYRINGE IV SCH ×3 (05:50→22:29)
[2016-10-29] MEDS ORDERED: IMIPENEM/CILASTATIN SODIUM 500 MG VIAL IV ONE (08:22)
[2016-10-29] MEDS: PANTOPRAZOLE 40 MG TABLET PO SCH (08:43)
[2016-10-29] MEDS: BUMETANIDE 1 MG TABLET PO SCH (08:43)
[2016-10-29] MEDS: BISMUTH SUBGALLATE PO SCH ×3 (08:43→17:11)
[2016-10-29] MEDS: HEPARIN 5,000 UNIT/ML VIAL SQ SCH ×2 (08:44→20:56)
[2016-10-29] MEDS: NEBIVOLOL HCL 5 MG PO SCH ×2 (08:44→20:56)
[2016-10-29] MEDS: GABAPENTIN 300 MG CAPSULE PO SCH ×3 (08:44→20:56)
[2016-10-29] MEDS: LORATADINE 10 MG TABLET PO SCH (08:44)
[2016-10-29] MEDS: CLOTRIMAZOLE CRM 1% 1 DOSE TUBE TOPICAL SCH ×2 (08:44→20:57)
[2016-10-29] MEDS: IMIPENEM/CILASTATIN SODIUM 500 MG in 0.9 % SODIUM CHLORIDE 100 ML IV SCH ×2 (08:45→20:57)
[2016-10-29] MEDS: FLUTICASONE/SALMETEROL 250/50 INHALER #14 INH SCH ×2 (08:46→20:57)
[2016-10-29] MEDS: INSULIN LISPRO 1 UNIT/0.01 ML UNIT SQ SCH ×4 (10:30→21:01)
--- NOTE | 2016-10-29 10:39 | Internal Med Progress Note ---
Medical - PN: Subj Patient information: Note initiated : 10/29/16 at 10:39 am Service Date, if different from initiated Date: [] Patient: Partha Samuels 81 y/o M admitted on 10/27/16 for SOB/Lt Lung Mass, COPD , PNA, Sepsis, CHF. Chief Complaint: [] Interval history: october 27, 2016:History of present illness: Mr. Samuels is a 81 year old male with multiple medical issues. presented to the ER with shortness of breath, increased generalized pain, and subjective sensation of pain and fever. The patient notes that he was doing well approximately upto 2 weeks ago, and since then he has been having gradual decline in his condition. He has intermittent bouts of shortness of breath. He admits to having cough with whitish greyish sputum, fever with temp of 99, chills and intermittent rigors. The patient is a poor historian and had significant tangentiality to his history. He notes that some times he gets sob while passing urine. but denies any burning urine, foul smelling urine or increased frequency of urination. He denies any abdominal pain, nausea and or vomiting. He has a ileostomy in place, but denies any change in bowel habits. The patient in the ER was noted to be tachycardic and tachypneic, the patient had elevated wbc count, elevated lactic acid, elevated gap, pt was at baseline renal function, had elevated BNP. CXR was reported as possible abscess in the right upper lobe. CT scan of the Chest shows a cavitary mass in the right upper lobe (night hawk read). Patient as admitted to the hospital with diagnosis of PNA, new onset mass (squamous cell Ca) . October 28: Patient seen examined, no acute overnight events, remains of 5L oxygen. He denies any new concerns. I reviewed the CT findings with him of possible mass vs abscess. I reviewed the CT with our radiologist who feels that this is abscess rather than a tumor. Night hawk read mentions likely malignant tumor. The radiologist does not feel that the mass/ abscess can be drained given severe empysema and risk of coverting abscess to empyema. patient remains on broad spectrum ABX vanco and imipenum. The patient remains of lasix for chf and cor pulmonale. Hemodynamically stable. I have consulted pulmonary for their guidance. Plan to sent fungal culture and stain, also afb and quantiferon which has been ordered. Pt placed in air borne isolation. October 29: This patient was admitted with signs and symptoms of pneumonia, but an unusual appearing infiltrate on his chest x-ray, suggesting the possibility of atypical pneumonia, versus abscess, versus lung cancer. He has known severe COPD/ emphysema. today,he notes his shortness of breath is much improved over admission. He says he has a pretty minimal, nonproductive, cough. He still feels chilled occasionally, but is unaware fever. He continues to have mild dyspnea on exertion, which he describes not only shortness of breath but as a feeling that his legs will collapse, if he tries to walk anywhere. He and his report that that sensation and weakness have been going on for about a week or so. However, she notes he really has not done that well, strength almonte, since he was discharged from rehabilitation, last year. He otherwise denies headaches or dizziness, sore throat, chest pain or palpitations, abdominal pain, nausea or vomiting, diarrhea or constipation, dysuria. -he continues to require high flow oxygen to maintain saturations above 90%. -He continues with elevated white blood cell countall which is essentially unchanged. -Nurses were concerned about giving him insulin last night, as blood sugars are generally ranging less than 200. He is on sliding scale insulin coverage. - Constitutional Vitals: Vital Signs Temp Pulse Resp BP Pulse Ox 98.1 F 100 H 22 139/88 90 10/29/16 04:01 10/29/16 06:01 10/29/16 06:01 10/29/16 06:01 10/29/16 06:01 Period Temp Pulse Resp BP Sys/[place] Pulse Ox Last 24 Hr 98.1 F-99.1 F 86-107 15-23 98-139/65-91 87-96 Intake and Output 10/28/16 10/29/16 10/29/16 21:59 05:59 13:59 Intake Total 760 / 760 Output Total 680 / 680 510 / 510 50 / 50 Balance 80 / 80 -510 / -510 -50 / -50 Weight 230 lb 9.6 oz Intake & Output: Intake & Output 10/28/16 10/29/16 10/29/16 21:59 05:59 13:59 Intake Total 760 / 760 Output Total 680 / 680 510 / 510 50 / 50 Balance 80 / 80 -510 / -510 -50 / -50 Weight 230 lb 9.6 oz Intake: IV 100 / 100 Primaxin 500 mg In Sodium 100 / 100 Chloride 0.9% 100 ml @ 100 mls/hr IV Q12H [facility] Rx #:[id number] Oral 660 / 660 Output: Urine Catheter Amount 680 / 680 510 / 510 50 / 50 Other: Meal Dinner Percent of Meal Consumed 75% heart rate varying from 94-100, respiratory rate 16-23 blood pressure 139/88, O2 saturation 90% on a 10 L nasal cannula on exam, he is an elderly white male, lying in bed. He is in no acute distress. He is alert and cooperative. Neck: Shows no obvious JVD or lymphadenopathy. Cardiac exam: Shows irregularly irregular rhythm with controlled response. lungs:He has scattered crackles in the left lung matos. Right lung matos are fairly clear, but there are abnormal lung sounds, consistent with egophony. abdomen: Is soft and nontender. Extremities: show about 1+ edema, with reddened ankles and shins, consistent with stasis dermatitis. Neurologic: Is grossly nonfocal. Medical - PN: Obj Da - Labs CBC & Chem 7: 10/29/16 04:00 10/29/16 04:00 Labs: Abnormal Lab Results 10/29/16 10/29/16 10/28/16 04:00 04:00 03:43 WBC 12.8 H RDW 18.8 H Gran % 82.2 H Lymph % (Auto) 9.1 L Gran # 10.5 H Lymph # 1.2 L [place] # 1.0 H PT INR BUN 36 H Creatinine 1.7 H Glucose 165 H Hemoglobin A1c 8.3 H Uric Acid 12.0 H Total Bilirubin 1.1 H GGT 70 H Lactate Dehydrogenase 327 H Albumin 3.1 L Albumin/Globulin Ratio Urine Protein Urine Glucose (UA) Urine Occult Blood Ur Leukocyte Esterase Urine RBC Hyaline Casts 10/28/16 10/28/16 10/28/16 03:43 03:43 03:43 WBC RDW 18.7 H Gran % 82.4 H Lymph % (Auto) 8.6 L Gran # 9.1 H Lymph # 1.0 L [place] # PT 18.5 H INR 1.5 H BUN 36 H Creatinine 1.6 H Glucose 128 H Hemoglobin A1c Uric Acid 11.2 H Total Bilirubin GGT 71 H Lactate Dehydrogenase 348 H Albumin 3.1 L Albumin/Globulin Ratio 0.9 L Urine Protein Urine Glucose (UA) Urine Occult Blood Ur Leukocyte Esterase Urine RBC Hyaline Casts 10/28/16 03:20 WBC RDW Gran % Lymph % (Auto) Gran # Lymph # [place] # PT INR BUN Creatinine Glucose Hemoglobin A1c Uric Acid Total Bilirubin GGT Lactate Dehydrogenase Albumin Albumin/Globulin Ratio Urine Protein 30 A Urine Glucose (UA) 50 A Urine Occult Blood 0.03 A Ur Leukocyte Esterase 25 A Urine RBC 18 H Hyaline Casts 3 H October 29: -Intake and output shows: -2185 mL since admission. October 28: Urinalysis: 25 leukocyte esterase, negative nitrate,s 30 g protein,50 g of glucose, 18 red blood cells -TB QuantiFERON test: Pending -sputum Gram stain: A few gram-positive cocci in pairs. Fungal smear negative. -Urine culture negative so far. echocardiogram: Pending. October 27: BNP is elevated at 7715 -MRSA screen: Positive. -Blood cultures are negative so far. -EKG showed atrial fibrillation with a rate of 110. -ABG: On 5 L OxiMax: PH 7.47, PCO2 34, PO2 65, bicarbonate 24, O2 saturation 94% CT chest: -Severe centrilobular emphysema. -fluid-filled 9 cm bulla in the right upper lobe. Also 5 x 2 cm focal consolidating infiltrate in the adjacent right upper lobe. -Atypical CHF, with pre-existing pulmonary hypertension. Moderate cardiomegaly. -mildly enlarged lymph nodes in the right hilum and right mediastinum likely benign reactive. -Small amount of ascites, new compared to 7 months ago. -Increased risk for lung cancer, consider follow-up chest CT after resolution of pneumonia and CHF. Meds: Medications Acetaminophen (Tylenol) 650 mg PO Q4-6HP PRN PRN Reason: PAIN/FEVER > 101 Bisacodyl (Dulcolax) 10 mg PA Q2-3DAYS PRN PRN Reason: Constipation Bumetanide (Bumex) 1 mg PO QDAY [facility] Last Admin: 10/29/16 08:43 Dose: 1 mg Clotrimazole (Mycelex Crm 1%) 1 dose TOPICAL BID [facility] Last Admin: 10/29/16 08:44 Dose: 1 dose Dextrose (Dextrose 50%) 0 ml IV UD PRN PRN Reason: Hypoglycemia Diagnostic Test (Pha) (Accu-Chek) 1 each FS ACHS [facility] Last Admin: 10/29/16 08:41 Dose: 1 each Gabapentin (Neurontin) 600 mg PO TID [facility] Last Admin: 10/29/16 08:44 Dose: 600 mg Heparin Sodium (Porcine) (Heparin) 5,000 unit SQ Q12 [facility] Last Admin: 10/29/16 08:44 Dose: 5,000 unit Hydromorphone HCl (Dilaudid) 0.5 mg IV Q2HP PRN PRN Reason: Pain Imipenem/Cilastatin Sodium 500 (mg/ Sodium Chloride) 100 mls @ 100 mls/hr IV Q12H [facility] Last Admin: 10/29/16 08:45 Dose: 100 mls/hr Vancomycin HCl 1,500 mg/ (Sodium Chloride) 500 mls @ 333.3 mls/hr IV Q24H [facility] Last Admin: 10/28/16 16:07 Dose: 333.3 mls/hr Insulin Human Lispro (Humalog) 0 unit SQ [facility] PRN Reason: Protocol Last Admin: 10/28/16 20:47 Dose: 2 unit Ipratropium [place] (Atrovent) 2.5 ml NEB Q4HRT [facility] Last Admin: 10/29/16 07:30 Dose: 2.5 ml Loratadine (Claritin) 10 mg PO QDAY [facility] Last Admin: 10/29/16 08:44 Dose: 10 mg Magnesium Hydroxide (Milk Of Magnesia) 30 ml PO DAILYP PRN PRN Reason: Constipation Naloxone HCl (Narcan) 0.1 mg IV Q2MIN PRN PRN Reason: Opiate Reversal Nitroglycerin (Nitrostat) 0.4 mg SL Q5-15MIN PRN PRN Reason: chest pain Non-Formulary Medication (Dextran 70/Hypromellose [Artificials Tears Drops]) 1 drp OPHTHALMIC TID PRN PRN Reason: dry eyes Ondansetron HCl (Zofran) 4 mg IV Q4-6HP PRN PRN Reason: Nausea And Vomiting Pantoprazole Sodium (Protonix) 40 mg PO QAMAC [facility] Last Admin: 10/29/16 08:43 Dose: 40 mg Nebivolol Hcl [ (Bystolic] 5 Mg) 1 dose PO BID [facility] Last Admin: 06/08/17 08:44 Dose: 1 dose Bismuth Subgallate ( (Devrom) 200 Mg Tab) 2 dose PO TIDPC [facility] Last Admin: 10/29/16 08:43 Dose: 2 dose Fluticasone/Salmeterol (Advair 250-50 Diskus) 1 puff INH Q12 [facility] Last Admin: 10/29/16 08:46 Dose: 1 puff Simvastatin (Zocor) 10 mg PO HS [facility] Last Admin: 10/28/16 20:34 Dose: 10 mg Sodium Chloride (Saline Flush) 10 ml IV Q8 [facility] Last Admin: 10/29/16 05:50 Dose: 10 ml Vancomycin HCl (Vancomycin Per Pharmacy) 1 order IV UD [facility] Medical - PN: A/P - Time Spent With Patient Total time spent is greater than 50% in coordination of care (as documented) at patient's floor/unit and/or counseling patient: Greater than 35 minutes - Narrative A/P Narrative: A/P Narrative: #1. Pulmonary/infectious disease. Left lung mass / abscess/ : Drainage not possible as per radiology. -the patient continues on vancomycin and imipenem, pending cultures. Clinically he has improved. White blood cell count remains elevated at 12,000+. continue pulmonary toilet, bronchodilators high flow oxygen - Dr. Cordero of pulmonary, is also following, and consultation is appreciated. - TB QuantiFERON assay is pending. -Chest CT is also worrisome for possible underlying lung cancer. Patient will need follow-up CAT scan after current problems are resolved. -Acute on Chr Resp Failure: At home on 2L, presently on 5,. due to copd, chf, and pna. resume Advair at discharge. #2. Sepsis: due to pna, - -improved. #3. Cardiac. -CHF/ Cor Pulmonale: patient has elevated bnp, edematous extremities. IV lasix for now, continue home dose of bumex, elizabeth in place I/O mointoring. -continue pravastatin. continue nebivolol. -CAD: last stress test shows inferior lateral reversible ischemic region, not cath done as per last card note. medical management planned. NO CP. -atrial fibrillation. Rate controlled. Not a candidate for long-term anticoagulation, per cardiology. #4. h/o Ca Bladder: s/p cisplatin, patient did not tolerate course, follows with urology. #5.DM: Sliding scale of insulin -resume Lantus. -glipizide is on hold. #6. HTN: Resume home medications. monitor bp. #7. Ulcerative colitis: patient is s/p colectomy has a ileostomy in place. #8. DVT hep sq 39. CODE STATUS:No CPR. #10. Neuropathy. Continue gabapentin. 311. GI. Continue omeprazole, for presumed GERD. Approximately 35 minutes was spent today, reviewing the patient's records and test results, interviewing and examining him, reviewing plan of care with staff , and writing orders. Medical - PN: Qual - VTE Deep Vein Thrombosis/Pulmonary Embolism Present on Admission: No
--- NOTE | 2016-10-29 12:28 | Echocardiogram Report ---
ECHOCARDIOGRAM: 2-D and M-mode echocardiography with cardiac Doppler and color flow imaging were performed with a [employer] A[employer]io MX. Indication is heart failure/cor pulmonale. The study was technically difficult for anatomic reasons. Both atria appeared moderately enlarged. RV and LV cavity size appeared normal. LV wall thickness appeared moderately increased. Systolic performance appeared normal. Estimated ejection fraction is 60%. Aortic root diameter appeared high normal, 3.8 cm. The aortic valve appeared trileaflet and normal. There was no evidence for aortic stenosis or aortic regurgitation by Doppler interrogation. The mitral and tricuspid valves appeared unremarkable. Doppler interrogation of LV inflow disclosed a monophasic spectral dispersion pattern related to absent AV synchrony. No more than trivial mitral regurgitation was noted. Light mitral annular calcification was present. The pulmonic valve showed absent ''a'' wave in the absence of AV synchrony. Pulmonary artery acceleration time appeared shortened. There was no evidence for pulmonic stenosis or pulmonic regurgitation. Tricuspid regurgitation, probably moderately severe pulmonary (3+), was noted. No intracardiac shunting was appreciated. There was no evidence for pericardial effusion. The IVC was dilated and did not vary with the respiratory cycle indicating raised CVP. Calculated estimate of PA systolic pressure is severely elevated at 80 mmHg. Hepatic venous interrogation disclosed ''d'' wave dominance corroborating elevate RA pressure. Atrial fibrillation with a moderate response was present. CONCLUSION:Technically difficult study for anatomic reasons. Moderate concentric LVH with normal systolic performance. Light mitral annular calcification. Moderate LA enlargement. Severe and probably disproportionate pulmonary hypertension with moderate RA enlargement and raised CVP. (See accompanying M-mode and Doppler reports for quantitation.) ECHOCARDIOGRAPHY M-MODE CALCULATIONS: HT: 71'' WT: 230 BSA: 2.24 m2 NORMALS AORTA: AORTIC ROOT 3.8 2.0-3.7 cm LEFT ATRIUM 5.0 1.9-4.0 cm MITRAL VALVE: EXCURSION 2.2 1.9-2.7 cm EPSS 0.2 <0.5 cm LT VENTRICLE: LVID (ED) 5.2 3.5-5.7 cm LVID (ES) 3.9 SEPTAL THICKNESS 1.4 0.6-1.1 cm SEPTAL EXCURSION 0.2 0.3-0.8 cm LVPW THICKNESS 1.4 0.6-1.1 cm LVPW EXCURSION 1.2 0.9-1.4 cm MINOR AXIS FS 2.5 25%-40% RT VENTRICLE: RVID (ED) 2.0 0.9-2.6 cm(up to 3cm if LLD) QUALITATIVE DOPPLER FLOW STUDIES MITRAL VALVE MR, probably trivial AORTIC VALVE -- TRICUSPID VALVE TR, probably moderately severe (3+) PULMONIC VALVE -- QUANTITATIVE DOPPLER FLOW STUDIES SAMPLE SITES VELOCITIES PEAK PRESSURE VALVE AREA and/or VALVE WINDOW (PEAK,M/SEC) DROP (GRADIENT) PRESSURE HALF-TIME MV (Diastole) 0.9 -- -- MV (Systole) 3.0 -- -- AO (Diastole) -- -- -- AO (Systole) 1.0 -- -- TV (Systole) 3.8 -- -- PV (Systole) 0.6 -- -- PV (Diastole) -- TREYG:chris Job ID: [id number] Doc ID: [id number] Zana Hameed MD
--- NOTE | 2016-10-29 13:53 | Internal Med Progress Note ---
Medical - PN: Subj Patient information: Note initiated : 10/29/16 at 1:51 pm Service Date, if different from initiated Date: [] Patient: Partha Samuels 81 y/o M admitted on 10/27/16 for SOB/Lt Lung Mass, COPD , PNA, Sepsis, CHF. Chief Complaint: [] Interval history: october 27, 2016:History of present illness: Mr. Samuels is a 81 year old male with multiple medical issues. presented to the ER with shortness of breath, increased generalized pain, and subjective sensation of pain and fever. The patient notes that he was doing well approximately upto 2 weeks ago, and since then he has been having gradual decline in his condition. He has intermittent bouts of shortness of breath. He admits to having cough with whitish greyish sputum, fever with temp of 99, chills and intermittent rigors. The patient is a poor historian and had significant tangentiality to his history. He notes that some times he gets sob while passing urine. but denies any burning urine, foul smelling urine or increased frequency of urination. He denies any abdominal pain, nausea and or vomiting. He has a ileostomy in place, but denies any change in bowel habits. The patient in the ER was noted to be tachycardic and tachypneic, the patient had elevated wbc count, elevated lactic acid, elevated gap, pt was at baseline renal function, had elevated BNP. CXR was reported as possible abscess in the right upper lobe. CT scan of the Chest shows a cavitary mass in the right upper lobe (night hawk read). Patient as admitted to the hospital with diagnosis of PNA, new onset mass (squamous cell Ca) . October 28: Patient seen examined, no acute overnight events, remains of 5L oxygen. He denies any new concerns. I reviewed the CT findings with him of possible mass vs abscess. I reviewed the CT with our radiologist who feels that this is abscess rather than a tumor. Night hawk read mentions likely malignant tumor. The radiologist does not feel that the mass/ abscess can be drained given severe empysema and risk of coverting abscess to empyema. patient remains on broad spectrum ABX vanco and imipenum. The patient remains of lasix for chf and cor pulmonale. Hemodynamically stable. I have consulted pulmonary for their guidance. Plan to sent fungal culture and stain, also afb and quantiferon which has been ordered. Pt placed in air borne isolation. October 29: This patient was admitted with signs and symptoms of pneumonia, but an unusual appearing infiltrate on his chest x-ray, suggesting the possibility of atypical pneumonia, versus abscess, versus lung cancer. He has known severe COPD/ emphysema. today,he notes his shortness of breath is much improved over admission. He says he has a pretty minimal, nonproductive, cough. He still feels chilled occasionally, but is unaware fever. He continues to have mild dyspnea on exertion, which he describes not only shortness of breath but as a feeling that his legs will collapse, if he tries to walk anywhere. He and his report that that sensation and weakness have been going on for about a week or so. However, she notes he really has not done that well, strength almonte, since he was discharged from rehabilitation, last year. He otherwise denies headaches or dizziness, sore throat, chest pain or palpitations, abdominal pain, nausea or vomiting, diarrhea or constipation, dysuria. -he continues to require high flow oxygen to maintain saturations above 90%. -He continues with elevated white blood cell countall which is essentially unchanged. -Nurses were concerned about giving him insulin last night, as blood sugars are generally ranging less than 200. He is on sliding scale insulin coverage. - Constitutional Vitals: Vital Signs Temp Pulse Resp BP Pulse Ox 98.1 F 100 H 22 139/88 90 10/29/16 04:01 10/29/16 06:01 10/29/16 06:01 10/29/16 06:01 10/29/16 06:01 Period Temp Pulse Resp BP Sys/Portillo Pulse Ox Last 24 Hr 98.1 F-98.5 F 90-100 15-23 98-139/65-91 90-96 Intake and Output 10/28/16 10/29/16 10/29/16 21:59 05:59 13:59 Intake Total 760 / 760 Output Total 680 / 680 510 / 510 50 / 50 Balance 80 / 80 -510 / -510 -50 / -50 Weight 230 lb 9.6 oz 230 lb 9.6 oz Patient Weight 10/30/16 05:59 Weight 230 lb 9.6 oz Intake & Output: Intake & Output 10/28/16 10/29/16 10/29/16 21:59 05:59 13:59 Intake Total 760 / 760 Output Total 680 / 680 510 / 510 50 / 50 Balance 80 / 80 -510 / -510 -50 / -50 Weight 230 lb 9.6 oz 230 lb 9.6 oz Intake: IV 100 / 100 Primaxin 500 mg In Sodium 100 / 100 Chloride 0.9% 100 ml @ 100 mls/hr IV Q12H [facility] Rx #:[id number] Oral 660 / 660 Output: Urine Catheter Amount 680 / 680 510 / 510 50 / 50 Other: Meal Dinner Percent of Meal Consumed 75% heart rate varying from 94-100, respiratory rate 16-23 blood pressure 139/88, O2 saturation 90% on a 10 L nasal cannula on exam, he is an elderly white male, lying in bed. He is in no acute distress. He is alert and cooperative. Neck: Shows no obvious JVD or lymphadenopathy. Cardiac exam: Shows irregularly irregular rhythm with controlled response. lungs:He has scattered crackles in the left lung matos. Right lung matos are fairly clear, but there are abnormal lung sounds, consistent with egophony. abdomen: Is soft and nontender. Extremities: show about 1+ edema, with reddened ankles and shins, consistent with stasis dermatitis. Neurologic: Is grossly nonfocal. Medical - PN: Obj Da - Labs CBC & Chem 7: 10/29/16 04:00 10/29/16 04:00 Labs: Abnormal Lab Results 10/29/16 10/29/16 10/28/16 04:00 04:00 03:43 WBC 12.8 H RDW 18.8 H Gran % 82.2 H Lymph % (Auto) 9.1 L Gran # 10.5 H Lymph # 1.2 L [place] # 1.0 H PT INR BUN 36 H Creatinine 1.7 H Glucose 165 H Hemoglobin A1c 8.3 H Uric Acid 12.0 H Total Bilirubin 1.1 H GGT 70 H Lactate Dehydrogenase 327 H Albumin 3.1 L Albumin/Globulin Ratio Urine Protein Urine Glucose (UA) Urine Occult Blood Ur Leukocyte Esterase Urine RBC Hyaline Casts 10/28/16 10/28/16 10/28/16 03:43 03:43 03:43 WBC RDW 18.7 H Gran % 82.4 H Lymph % (Auto) 8.6 L Gran # 9.1 H Lymph # 1.0 L [place] # PT 18.5 H INR 1.5 H BUN 36 H Creatinine 1.6 H Glucose 128 H Hemoglobin A1c Uric Acid 11.2 H Total Bilirubin GGT 71 H Lactate Dehydrogenase 348 H Albumin 3.1 L Albumin/Globulin Ratio 0.9 L Urine Protein Urine Glucose (UA) Urine Occult Blood Ur Leukocyte Esterase Urine RBC Hyaline Casts 10/28/16 03:20 WBC RDW Gran % Lymph % (Auto) Gran # Lymph # [place] # PT INR BUN Creatinine Glucose Hemoglobin A1c Uric Acid Total Bilirubin GGT Lactate Dehydrogenase Albumin Albumin/Globulin Ratio Urine Protein 30 A Urine Glucose (UA) 50 A Urine Occult Blood 0.03 A Ur Leukocyte Esterase 25 A Urine RBC 18 H Hyaline Casts 3 H October 29: -Intake and output shows: -2185 mL since admission. October 28: Urinalysis: 25 leukocyte esterase, negative nitrate,s 30 g protein,50 g of glucose, 18 red blood cells -TB QuantiFERON test: Pending -sputum Gram stain: A few gram-positive cocci in pairs. Fungal smear negative. -Urine culture negative so far. echocardiogram: Pending. October 27: BNP is elevated at 7715 -MRSA screen: Positive. -Blood cultures are negative so far. -EKG showed atrial fibrillation with a rate of 110. -ABG: On 5 L OxiMax: PH 7.47, PCO2 34, PO2 65, bicarbonate 24, O2 saturation 94% CT chest: -Severe centrilobular emphysema. -fluid-filled 9 cm bulla in the right upper lobe. Also 5 x 2 cm focal consolidating infiltrate in the adjacent right upper lobe. -Atypical CHF, with pre-existing pulmonary hypertension. Moderate cardiomegaly. -mildly enlarged lymph nodes in the right hilum and right mediastinum likely benign reactive. -Small amount of ascites, new compared to 7 months ago. -Increased risk for lung cancer, consider follow-up chest CT after resolution of pneumonia and CHF. Meds: Medications Acetaminophen (Tylenol) 650 mg PO Q4-6HP PRN PRN Reason: PAIN/FEVER > 101 Bisacodyl (Dulcolax) 10 mg MA Q2-3DAYS PRN PRN Reason: Constipation Bumetanide (Bumex) 1 mg PO QDAY [facility] Last Admin: 10/29/16 08:43 Dose: 1 mg Clotrimazole (Mycelex Crm 1%) 1 dose TOPICAL BID [facility] Last Admin: 10/29/16 08:44 Dose: 1 dose Dextrose (Dextrose 50%) 0 ml IV UD PRN PRN Reason: Hypoglycemia Diagnostic Test (Pha) (Accu-Chek) 1 each FS ACHS [facility] Last Admin: 10/29/16 13:15 Dose: 1 each Gabapentin (Neurontin) 600 mg PO TID [facility] Last Admin: 10/29/16 08:44 Dose: 600 mg Heparin Sodium (Porcine) (Heparin) 5,000 unit SQ Q12 [facility] Last Admin: 10/29/16 08:44 Dose: 5,000 unit Hydromorphone HCl (Dilaudid) 0.5 mg IV Q2HP PRN PRN Reason: Pain Imipenem/Cilastatin Sodium 500 (mg/ Sodium Chloride) 100 mls @ 100 mls/hr IV Q12H [facility] Last Admin: 10/29/16 08:45 Dose: 100 mls/hr Vancomycin HCl 1,500 mg/ (Sodium Chloride) 500 mls @ 333.3 mls/hr IV Q24H [facility] Last Admin: 10/28/16 16:07 Dose: 333.3 mls/hr Insulin Glargine (Lantus) 10 unit SQ BID [facility] Insulin Human Lispro (Humalog) 0 unit SQ [facility] PRN Reason: Protocol Last Admin: 10/29/16 13:41 Dose: 3 unit Ipratropium Viola (Atrovent) 2.5 ml NEB Q4HRT [facility] Last Admin: 10/29/16 11:35 Dose: 2.5 ml Loratadine (Claritin) 10 mg PO QDAY [facility] Last Admin: 10/29/16 08:44 Dose: 10 mg Magnesium Hydroxide (Milk Of Magnesia) 30 ml PO DAILYP PRN PRN Reason: Constipation Naloxone HCl (Narcan) 0.1 mg IV Q2MIN PRN PRN Reason: Opiate Reversal Nitroglycerin (Nitrostat) 0.4 mg SL Q5-15MIN PRN PRN Reason: chest pain Non-Formulary Medication (Dextran 70/Hypromellose [Artificials Tears Drops]) 1 drp OPHTHALMIC TID PRN PRN Reason: dry eyes Ondansetron HCl (Zofran) 4 mg IV Q4-6HP PRN PRN Reason: Nausea And Vomiting Pantoprazole Sodium (Protonix) 40 mg PO QAMAC [facility] Last Admin: 10/29/16 08:43 Dose: 40 mg Nebivolol Hcl [ (Bystolic] 5 Mg) 1 dose PO BID [facility] Last Admin: 10/29/16 08:44 Dose: 1 dose Bismuth Subgallate ( (Devrom) 200 Mg Tab) 2 dose PO TIDPC [facility] Last Admin: 10/29/16 12:41 Dose: 2 dose Fluticasone/Salmeterol (Advair 250-50 Diskus) 1 puff INH Q12 [facility] Last Admin: 10/29/16 08:46 Dose: 1 puff Simvastatin (Zocor) 10 mg PO HS [facility] Last Admin: 10/28/16 20:34 Dose: 10 mg Sodium Chloride (Saline Flush) 10 ml IV Q8 [facility] Last Admin: 10/29/16 13:43 Dose: 10 ml Vancomycin HCl (Vancomycin Per Pharmacy) 1 order IV UD [facility] Medical - PN: A/P - Time Spent With Patient Total time spent is greater than 50% in coordination of care (as documented) at patient's floor/unit and/or counseling patient: Greater than 35 minutes - Narrative A/P Narrative: #1. Pulmonary/infectious disease. Left lung mass / abscess/ : Drainage not possible as per radiology. -the patient continues on vancomycin and imipenem, pending cultures. Clinically he has improved. White blood cell count remains elevated at 12,000+. continue pulmonary toilet, bronchodilators high flow oxygen - Dr. Cordero of pulmonary, is also following, and consultation is appreciated. - TB QuantiFERON assay is pending. -Chest CT is also worrisome for possible underlying lung cancer. Patient will need follow-up CAT scan after current problems are resolved. -Acute on Chr Resp Failure: At home on 2L, presently on 5,. due to copd, chf, and pna. resume Advair at discharge. #2. Sepsis: due to pna, - -improved. #3. Cardiac. -CHF/ Cor Pulmonale: patient has elevated bnp, edematous extremities. IV lasix for now, continue home dose of bumex, elizabeth in place I/O mointoring. -continue pravastatin. continue nebivolol. -CAD: last stress test shows inferior lateral reversible ischemic region, not cath done as per last card note. medical management planned. NO CP. -atrial fibrillation. Rate controlled. Not a candidate for long-term anticoagulation, per cardiology. #4. h/o Ca Bladder: s/p cisplatin, patient did not tolerate course, follows with urology. #5.DM: Sliding scale of insulin -resume Lantus. -glipizide is on hold. #6. HTN: Resume home medications. monitor bp. #7. Ulcerative colitis: patient is s/p colectomy has a ileostomy in place. #8. DVT hep sq 39. CODE STATUS:No CPR. #10. Neuropathy. Continue gabapentin. 311. GI. Continue omeprazole, for presumed GERD. Approximately 35 minutes was spent today, reviewing the patient's records and test results, interviewing and examining him, reviewing plan of care with staff , and writing orders. Medical - PN: Qual - VTE Deep Vein Thrombosis/Pulmonary Embolism Present on Admission: No
[2016-10-29] MEDS: VANCOMYCIN 1,500 MG in 0.9 % SODIUM CHLORIDE 500 ML IV SCH (17:11)
[2016-10-29] MEDS: SIMVASTATIN 10 MG TABLET PO SCH (20:56)
[2016-10-29] MEDS: INSULIN GLARGINE, HUMAN 1 UNIT/0.01 ML SQ SCH (21:01)
[2016-10-30] MEDS: IPRATROPIUM 2.5 ML AMPUL.NEB NEB SCH ×6 (02:45→22:38)
[2016-10-30] MEDS: 0.9 % SODIUM CHLORIDE 10 ML SYRINGE IV SCH ×3 (05:32→21:25)
[2016-10-30 05:50] LABS: Basophils # (Auto) 0 K/mcL (0.0-0.3); Basophils % (Auto) 0.2 % (0.0-2.0); Eosinophils # (Auto) 0.3 K/mcL (0.0-0.7); Eosinophils % (Auto) 3.3 % (0.0-7.0); Lymphocytes # (Auto) 1.1 K/mcL (1.5-4.8); Mean Cell Volume 89.1 fL (80.0-100.0); Mean Corpuscular HGB Conc 31.7 g/dL (31.0-36.0); Mean Corpuscular Hemoglobin 28.2 pg (26.0-34.0); Monocytes % (Auto) 9.5 % (1.0-12.0); Platelet Count 172 K/mcL (140-440); Red Cell Distribution Width 18.5 % (11.5-14.5)
[2016-10-30 06:15] LABS: ALT/SGPT 9 U/l (0-40); Albumin 2.7 gm/dL (3.2-5.2); Albumin/Globulin Ratio 0.8 (1.0-2.3); Alkaline Phosphatase 84 U/L (39-117); Bilirubin,Direct 0.3 mg/dL (0.0-0.3); Blood Urea Nitrogen 34 mg/dl (8-23); Gamma Glutamyl Transpeptidase 64 U/L (8-61); Magnesium 1.7 mg/dL (1.6-2.5); Uric Acid 11.6 mg/dL (2.5-8.0)
[2016-10-30] MEDS: INSULIN LISPRO 1 UNIT/0.01 ML UNIT SQ SCH ×4 (08:05→20:56)
[2016-10-30] MEDS: HEPARIN 5,000 UNIT/ML VIAL SQ SCH ×2 (08:39→20:55)
[2016-10-30] MEDS: BISMUTH SUBGALLATE PO SCH ×3 (08:40→17:36)
[2016-10-30] MEDS: GABAPENTIN 300 MG CAPSULE PO SCH ×3 (08:40→20:55)
[2016-10-30] MEDS: LORATADINE 10 MG TABLET PO SCH (08:40)
[2016-10-30] MEDS: INSULIN GLARGINE, HUMAN 1 UNIT/0.01 ML SQ SCH ×2 (08:40→20:55)
[2016-10-30] MEDS: BUMETANIDE 1 MG TABLET PO SCH (08:40)
[2016-10-30] MEDS: NEBIVOLOL HCL 5 MG PO SCH ×2 (08:40→20:55)
[2016-10-30] MEDS: PANTOPRAZOLE 40 MG TABLET PO SCH (08:40)
[2016-10-30] MEDS: IMIPENEM/CILASTATIN SODIUM 500 MG in 0.9 % SODIUM CHLORIDE 100 ML IV SCH ×2 (08:41→20:56)
[2016-10-30] MEDS: FLUTICASONE/SALMETEROL 250/50 INHALER #14 INH SCH ×2 (08:43→20:54)
[2016-10-30] MEDS: CLOTRIMAZOLE CRM 1% 1 DOSE TUBE TOPICAL SCH ×2 (08:43→20:56)
--- NOTE | 2016-10-30 09:39 | Internal Med Progress Note ---
Medical - PN: Subj Patient information: Note initiated : 10/30/16 at 9:39 am Patient: Partha Samuels 81 y/o M admitted on 10/27/16 for SOB/Lt Lung Mass, COPD , PNA, Sepsis, CHF. Interval history: october 27, 2016:History of present illness: Mr. Samuels is a 81 year old male with multiple medical issues. presented to the ER with shortness of breath, increased generalized pain, and subjective sensation of pain and fever. The patient notes that he was doing well approximately upto 2 weeks ago, and since then he has been having gradual decline in his condition. He has intermittent bouts of shortness of breath. He admits to having cough with whitish greyish sputum, fever with temp of 99, chills and intermittent rigors. The patient is a poor historian and had significant tangentiality to his history. He notes that some times he gets sob while passing urine. but denies any burning urine, foul smelling urine or increased frequency of urination. He denies any abdominal pain, nausea and or vomiting. He has a ileostomy in place, but denies any change in bowel habits. The patient in the ER was noted to be tachycardic and tachypneic, the patient had elevated wbc count, elevated lactic acid, elevated gap, pt was at baseline renal function, had elevated BNP. CXR was reported as possible abscess in the right upper lobe. CT scan of the Chest shows a cavitary mass in the right upper lobe (night hawk read). Patient as admitted to the hospital with diagnosis of PNA, new onset mass (squamous cell Ca) . October 28: Patient seen examined, no acute overnight events, remains of 5L oxygen. He denies any new concerns. I reviewed the CT findings with him of possible mass vs abscess. I reviewed the CT with our radiologist who feels that this is abscess rather than a tumor. Night hawk read mentions likely malignant tumor. The radiologist does not feel that the mass/ abscess can be drained given severe empysema and risk of coverting abscess to empyema. patient remains on broad spectrum ABX vanco and imipenum. The patient remains of lasix for chf and cor pulmonale. Hemodynamically stable. I have consulted pulmonary for their guidance. Plan to sent fungal culture and stain, also afb and quantiferon which has been ordered. Pt placed in air borne isolation. October 29: This patient was admitted with signs and symptoms of pneumonia, but an unusual appearing infiltrate on his chest x-ray, suggesting the possibility of atypical pneumonia, versus abscess, versus lung cancer. He has known severe COPD/ emphysema. today,he notes his shortness of breath is much improved over admission. He says he has a pretty minimal, nonproductive, cough. He still feels chilled occasionally, but is unaware fever. He continues to have mild dyspnea on exertion, which he describes not only shortness of breath but as a feeling that his legs will collapse, if he tries to walk anywhere. He and his report that that sensation and weakness have been going on for about a week or so. However, she notes he really has not done that well, strength almonte, since he was discharged from rehabilitation, last year. He otherwise denies headaches or dizziness, sore throat, chest pain or palpitations, abdominal pain, nausea or vomiting, diarrhea or constipation, dysuria. -he continues to require high flow oxygen to maintain saturations above 90%. -He continues with elevated white blood cell countall which is essentially unchanged. -Nurses were concerned about giving him insulin last night, as blood sugars are generally ranging less than 200. He is on sliding scale insulin coverage. October 30: today, patient says he thinks he is feeling a little less short of breath with exertion although he does spend most of his time either in bed or in the chair. He continues to have a productive cough,but says he really doesn' t feel especially short of breath at rest. He tells me that last night while transferring from the chair back to the bed he suddenly got extremely weak, and essentially collapsed onto the bed. His nurse says that he seemed to have a staring spell that lasted a few seconds. His says he has episodes of this at home fairly often, and will sometimes changes color and start to look a little blue. He does appear to desaturate dramatically with any activity, and this is probably happening at home as well. He usesO2 2 L continuous at home, and his says that she has been reluctant to turn that up, for fear of causing CO2 retention. otherwise, he denies fever or chills sore throat, chest pain or palpitations, abdominal pain, nausea or vomiting, diarrhea or constipation, dysuria. - Constitutional Vitals: Vital Signs Temp Pulse Resp BP Pulse Ox 98.3 F 78 18 120/81 88 L 10/29/16 21:01 10/30/16 07:44 10/30/16 07:44 10/30/16 06:00 10/30/16 06:00 Period Temp Pulse Resp BP Sys/Portillo Pulse Ox Last 24 Hr 98.3 F-98.6 F 78-102 16-24 99-125/51-81 88-100 Intake and Output 10/29/16 10/30/16 10/30/16 21:59 05:59 13:59 Intake Total 980 / 980 340 / 340 Output Total 1425 / 1425 485 / 485 Balance -445 / -445 -145 / -145 Weight 229 lb 4.8 oz Intake & Output: Intake & Output 10/29/16 10/30/16 10/30/16 21:59 05:59 13:59 Intake Total 980 / 980 340 / 340 Output Total 1425 / 1425 485 / 485 Balance -445 / -445 -145 / -145 Weight 229 lb 4.8 oz Intake: IV 500 / 500 100 / 100 Primaxin 500 mg In Sodium 100 / 100 Chloride 0.9% 100 ml @ 100 mls/hr IV Q12H [facility] Rx #:[id number] Vancomycin 1,500 mg In 500 / 500 Sodium Chloride 0.9% 500 ml @ 333.3 mls/hr IV Q24H [facility] Rx#:[id number] Oral 480 / 480 240 / 240 Output: Urine Catheter Amount 1175 / 1175 485 / 485 Stool 250 / 250 he is lying in bed, and is in no acute distress. He is pleasant and talkative. Neck shows no obvious lymphadenopathy or JVD. Cardiac exam: Irregularly irregular, with controlled rate. Lungs:Are fairly clear. Although the breath sounds on the right sound more hollow. Abdomen; Is soft and nontender. Extremities: Show 1-2+ pitting edema of the lower legs, stable. Neurologic exam: Patient is alert and oriented. Exam is grossly nonfocal. Medical - PN: Obj Da - Labs CBC & Chem 7: 10/30/16 04:15 10/30/16 04:15 Labs: Abnormal Lab Results 10/30/16 10/30/16 10/29/16 04:15 04:15 14:13 WBC Hgb 13.0 L RDW 18.5 H Gran % Lymph % (Auto) 11.0 L Gran # Lymph # 1.1 L [place] # 1.0 H PT INR Chloride 95 L BUN 34 H Creatinine 1.6 H Glucose 138 H Hemoglobin A1c Uric Acid 11.6 H Total Bilirubin GGT 64 H Lactate Dehydrogenase 340 H Albumin 2.7 L Albumin/Globulin Ratio 0.8 L Urine Protein Urine Glucose (UA) Urine Occult Blood Ur Leukocyte Esterase Urine RBC Hyaline Casts Vancomycin Trough 16.0 H 10/29/16 10/29/16 10/28/16 04:00 04:00 03:43 WBC 12.8 H Hgb RDW 18.8 H Gran % 82.2 H Lymph % (Auto) 9.1 L Gran # 10.5 H Lymph # 1.2 L [place] # 1.0 H PT INR Chloride BUN 36 H Creatinine 1.7 H Glucose 165 H Hemoglobin A1c 8.3 H Uric Acid 12.0 H Total Bilirubin 1.1 H GGT 70 H Lactate Dehydrogenase 327 H Albumin 3.1 L Albumin/Globulin Ratio Urine Protein Urine Glucose (UA) Urine Occult Blood Ur Leukocyte Esterase Urine RBC Hyaline Casts Vancomycin Trough 10/28/16 10/28/16 10/28/16 03:43 03:43 03:43 WBC Hgb RDW 18.7 H Gran % 82.4 H Lymph % (Auto) 8.6 L Gran # 9.1 H Lymph # 1.0 L [place] # PT 18.5 H INR 1.5 H Chloride BUN 36 H Creatinine 1.6 H Glucose 128 H Hemoglobin A1c Uric Acid 11.2 H Total Bilirubin GGT 71 H Lactate Dehydrogenase 348 H Albumin 3.1 L Albumin/Globulin Ratio 0.9 L Urine Protein Urine Glucose (UA) Urine Occult Blood Ur Leukocyte Esterase Urine RBC Hyaline Casts Vancomycin Trough 10/28/16 03:20 WBC Hgb RDW Gran % Lymph % (Auto) Gran # Lymph # [place] # PT INR Chloride BUN Creatinine Glucose Hemoglobin A1c Uric Acid Total Bilirubin GGT Lactate Dehydrogenase Albumin Albumin/Globulin Ratio Urine Protein 30 A Urine Glucose (UA) 50 A Urine Occult Blood 0.03 A Ur Leukocyte Esterase 25 A Urine RBC 18 H Hyaline Casts 3 H Vancomycin Trough October 30: Fungal antibodies: Pending October 28: Urinalysis: 25 leukocyte esterase, negative nitrate,s 30 g protein,50 g of glucose, 18 red blood cells -TB QuantiFERON test: Pending -sputum Gram stain: A few gram-positive cocci in pairs. - Culture is growing staph aureus, with sensitivities to follow. Fungal smear negative. -Urine culture negative so far. echocardiogram: this shows moderate concentric LVH with ejection fraction of 60% . Moderate left atrial enlargement. Severe and probably disproportionate pulmonary hypertension with moderate right atrial enlargement and raised CVP. Estimated PA systolic pressure is 80 mmHg. October 27: BNP is elevated at 7715 -MRSA screen: Positive. -Blood cultures are negative so far. -EKG showed atrial fibrillation with a rate of 110. -ABG: On 5 L OxiMax: PH 7.47, PCO2 34, PO2 65, bicarbonate 24, O2 saturation 94% CT chest: -Severe centrilobular emphysema. -fluid-filled 9 cm bulla in the right upper lobe. Also 5 x 2 cm focal consolidating infiltrate in the adjacent right upper lobe. -Atypical CHF, with pre-existing pulmonary hypertension. Moderate cardiomegaly. -mildly enlarged lymph nodes in the right hilum and right mediastinum likely benign reactive. -Small amount of ascites, new compared to 7 months ago. -Increased risk for lung cancer, consider follow-up chest CT after resolution of pneumonia and CHF. Meds: Medications Acetaminophen (Tylenol) 650 mg PO Q4-6HP PRN PRN Reason: PAIN/FEVER > 101 Bisacodyl (Dulcolax) 10 mg [place] Q2-3DAYS PRN PRN Reason: Constipation Bumetanide (Bumex) 1 mg PO QDAY [facility] Last Admin: 10/30/16 08:40 Dose: 1 mg Clotrimazole (Mycelex Crm 1%) 1 dose TOPICAL BID [facility] Last Admin: 10/29/16 20:57 Dose: 1 dose Dextrose (Dextrose 50%) 0 ml IV UD PRN PRN Reason: Hypoglycemia Diagnostic Test (Pha) (Accu-Chek) 1 each FS ACHS [facility] Last Admin: 10/30/16 08:03 Dose: 1 each Gabapentin (Neurontin) 600 mg PO TID [facility] Last Admin: 10/30/16 08:40 Dose: 600 mg Heparin Sodium (Porcine) (Heparin) 5,000 unit SQ Q12 [facility] Last Admin: 10/30/16 08:39 Dose: 5,000 unit Hydromorphone HCl (Dilaudid) 0.5 mg IV Q2HP PRN PRN Reason: Pain Imipenem/Cilastatin Sodium 500 (mg/ Sodium Chloride) 100 mls @ 100 mls/hr IV Q12H [facility] Last Admin: 10/30/16 08:41 Dose: 100 mls/hr Vancomycin HCl 1,500 mg/ (Sodium Chloride) 500 mls @ 333.3 mls/hr IV Q24H [facility] Last Infusion: 10/29/16 18:42 Dose: Infused Insulin Glargine (Lantus) 10 unit SQ BID [facility] Last Admin: 10/30/16 08:40 Dose: 10 unit Insulin Human Lispro (Humalog) 0 unit SQ ACHS [facility] PRN Reason: Protocol Last Admin: 10/30/16 08:05 Dose: Not Given Ipratropium [place] (Atrovent) 2.5 ml NEB Q4HRT [facility] Last Admin: 10/30/16 07:44 Dose: 2.5 ml Loratadine (Claritin) 10 mg PO QDAY [facility] Last Admin: 10/30/16 08:40 Dose: 10 mg Magnesium Hydroxide (Milk Of Magnesia) 30 ml PO DAILYP PRN PRN Reason: Constipation Naloxone HCl (Narcan) 0.1 mg IV Q2MIN PRN PRN Reason: Opiate Reversal Nitroglycerin (Nitrostat) 0.4 mg SL Q5-15MIN PRN PRN Reason: chest pain Non-Formulary Medication (Dextran 70/Hypromellose [Artificials Tears Drops]) 1 drp OPHTHALMIC TID PRN PRN Reason: dry eyes Ondansetron HCl (Zofran) 4 mg IV Q4-6HP PRN PRN Reason: Nausea And Vomiting Pantoprazole Sodium (Protonix) 40 mg PO QAMAC [facility] Last Admin: 10/30/16 08:40 Dose: 40 mg Nebivolol Hcl [ (Bystolic] 5 Mg) 1 dose PO BID [facility] Last Admin: 10/30/16 08:40 Dose: 1 dose Bismuth Subgallate ( (Devrom) 200 Mg Tab) 2 dose PO TIDPC [facility] Last Admin: 10/30/16 08:40 Dose: 2 dose Fluticasone/Salmeterol (Advair 250-50 Diskus) 1 puff INH Q12 [facility] Last Admin: 10/29/16 20:57 Dose: 1 puff Simvastatin (Zocor) 10 mg PO HS [facility] Last Admin: 10/29/16 20:56 Dose: 10 mg Sodium Chloride (Saline Flush) 10 ml IV Q8 [facility] Last Admin: 10/30/16 05:32 Dose: 10 ml Vancomycin HCl (Vancomycin Per Pharmacy) 1 order IV UD [facility] Medical - PN: A/P - Time Spent With Patient Total time spent is greater than 50% in coordination of care (as documented) at patient's floor/unit and/or counseling patient: Greater than 35 minutes - Narrative A/P Narrative: #1. Pulmonary/infectious disease. Left lung mass / abscess/ : Drainage not possible as per radiology. -the patient continues on vancomycin and imipenem, pending cultures. Clinically he has improved. White blood cell count is improved today, with absolute granulocyte count down to 7700. -aFB and other cultures are still pending. I reviewed this today with Dr. Cordero of pulmonary, and he wanted repeat fungus and AFB cultures ordered. -Echocardiogram also shows severely elevated pulmonary pressure, consistent with severe pulmonary hypertension. This probably explains why he becomes so hypoxic and dyspneic with minimal exertion. consider adding a calcium channel sharmila or sildenafil. i will try adding low- dose Norvasc, and hold the Bumex, in the hopes that his blood pressure will toleratethis additional blood pressure medicine. -continue pulmonary toilet, bronchodilators high flow oxygen - Dr. Cordero of pulmonary, is also following, and consultation is appreciated. - TB QuantiFERON assay is pending. -Chest CT is also worrisome for possible underlying lung cancer. Patient will need follow-up CAT scan after current problems are resolved. -Acute on Chr Resp Failure: At home on 2L, presently on 7l,. due to copd, and pna. resume Advair at discharge. #2. Sepsis: due to pna, - - resolved. #3. Cardiac. -CHF/ Cor Pulmonale: patient has an echocardiogram more consistent with right- sided heart failure, due to pulmonary hypertension. IV Lasix is discontinued. discontinue Bumex at this time. -continue pravastatin. continue nebivolol. -CAD: last stress test shows inferior lateral reversible ischemic region, not cath done as per last card note. medical management planned. NO CP. -atrial fibrillation. Rate controlled. Not a candidate for long-term anticoagulation, per cardiology. #4. h/o Ca Bladder: s/p cisplatin, patient did not tolerate course, follows with urology. #5.DM: Accu-Cheks are ranging from 130 to 224 -resumed Lantus. continue sliding scale. -glipizide is on hold. #6. HTN: Resume home medications. monitor bp. #7. Ulcerative colitis: patient is s/p colectomy has a ileostomy in place. #8. DVT hep sq 39. CODE STATUS:No CPR. #10. Neuropathy. Continue gabapentin. #11. GI. Continue omeprazole, for presumed GERD. #12. Patient does report general achiness today, especially pain in his knees. Tylenol does not seem to control the pain. He doesn't tolerate strong pain medicines very well, but his thinks he has tolerated Tylenol with Codeine in the past, so we will add this as a trial. Approximately 35 minutes was spent today, reviewing the patient's test results , interviewing and examining him, reviewing plan of care with staff, as well as the patient and his ,and with Dr. Cordero,and writing orders. Medical - PN: Qual - VTE Deep Vein Thrombosis/Pulmonary Embolism Present on Admission: No
[2016-10-30] MEDS: ACETAMINOPHEN W/CODEINE #3 1 TABLET PO PRN (10:45)
[2016-10-30] MEDS: VANCOMYCIN 1,500 MG in 0.9 % SODIUM CHLORIDE 500 ML IV SCH (15:08)
[2016-10-30] MEDS: SIMVASTATIN 10 MG TABLET PO SCH (20:55)
[2016-10-31] MEDS: IPRATROPIUM 2.5 ML AMPUL.NEB NEB SCH ×6 (02:31→22:54)
[2016-10-31 05:32] LABS: Basophils # (Auto) 0 K/mcL (0.0-0.3); Basophils % (Auto) 0.2 % (0.0-2.0); Eosinophils # (Auto) 0.4 K/mcL (0.0-0.7); Eosinophils % (Auto) 4.3 % (0.0-7.0); Granulocytes % (Auto) 76.5 % (38.0-78.0); Lymphocytes # (Auto) 0.9 K/mcL (1.5-4.8); Lymphocytes % (Auto) 10.2 % (15.5-49.0); Mean Cell Volume 88.9 fL (80.0-100.0); Mean Corpuscular HGB Conc 32.1 g/dL (31.0-36.0); Mean Corpuscular Hemoglobin 28.6 pg (26.0-34.0); Monocytes # (Auto) 0.8 K/mcL (0.1-0.9); Monocytes % (Auto) 8.8 % (1.0-12.0); Platelet Count 179 K/mcL (140-440); RBC 4.71 M/mcL (4.50-5.90); Red Cell Distribution Width 18.2 % (11.5-14.5)
[2016-10-31] MEDS: 0.9 % SODIUM CHLORIDE 10 ML SYRINGE IV SCH ×2 (05:32→17:00)
[2016-10-31 05:45] LABS: ALT/SGPT 8 U/l (0-40); Albumin 2.8 gm/dL (3.2-5.2); Albumin/Globulin Ratio 0.9 (1.0-2.3); Alkaline Phosphatase 84 U/L (39-117); Bilirubin,Direct 0.3 mg/dL (0.0-0.3); Blood Urea Nitrogen 32 mg/dl (8-23); Gamma Glutamyl Transpeptidase 66 U/L (8-61); Magnesium 1.5 mg/dL (1.6-2.5); Uric Acid 11.8 mg/dL (2.5-8.0)
[2016-10-31] MEDS ORDERED: MAGNESIUM SULFATE 2 GM/50 ML BAG IV ONE (08:47)
[2016-10-31] MEDS: PANTOPRAZOLE 40 MG TABLET PO SCH (10:29)
[2016-10-31] MEDS: BISMUTH SUBGALLATE PO SCH ×3 (10:29→17:19)
[2016-10-31] MEDS: NEBIVOLOL HCL 5 MG PO SCH ×2 (10:29→21:08)
[2016-10-31] MEDS: GABAPENTIN 300 MG CAPSULE PO SCH ×3 (10:30→21:09)
[2016-10-31] MEDS: amLODIPine 5 MG TABLET PO SCH (10:30)
[2016-10-31] MEDS: FLUTICASONE/SALMETEROL 250/50 INHALER #14 INH SCH ×2 (10:30→21:14)
[2016-10-31] MEDS: INSULIN GLARGINE, HUMAN 1 UNIT/0.01 ML SQ SCH ×2 (10:30→21:10)
[2016-10-31] MEDS: CLOTRIMAZOLE CRM 1% 1 DOSE TUBE TOPICAL SCH ×2 (10:30→21:14)
[2016-10-31] MEDS: HEPARIN 5,000 UNIT/ML VIAL SQ SCH ×2 (10:31→21:09)
[2016-10-31] MEDS: INSULIN LISPRO 1 UNIT/0.01 ML UNIT SQ SCH ×4 (10:32→21:09)
[2016-10-31] MEDS: ACETAMINOPHEN W/CODEINE #3 1 TABLET PO PRN ×2 (10:41→22:07)
[2016-10-31] MEDS: LORATADINE 10 MG TABLET PO SCH (10:41)
[2016-10-31] MEDS: VITAMIN B COMPLEX 1 CAPSULE PO SCH (10:41)
[2016-10-31] MEDS: IMIPENEM/CILASTATIN SODIUM 500 MG in 0.9 % SODIUM CHLORIDE 100 ML IV SCH ×3 (11:30→21:08)
--- NOTE | 2016-10-31 11:34 | Internal Med Progress Note ---
Medical - PN: Subj Patient information: Note initiated : 10/31/16 at 11:34 am Patient: Partha Samuels 81 y/o M admitted on 10/27/16 for SOB/Lt Lung Mass, COPD , PNA, Sepsis, CHF. Interval history: october 27, 2016:History of present illness: Mr. Samuels is a 81 year old male with multiple medical issues. presented to the ER with shortness of breath, increased generalized pain, and subjective sensation of pain and fever. The patient notes that he was doing well approximately upto 2 weeks ago, and since then he has been having gradual decline in his condition. He has intermittent bouts of shortness of breath. He admits to having cough with whitish greyish sputum, fever with temp of 99, chills and intermittent rigors. The patient is a poor historian and had significant tangentiality to his history. He notes that some times he gets sob while passing urine. but denies any burning urine, foul smelling urine or increased frequency of urination. He denies any abdominal pain, nausea and or vomiting. He has a ileostomy in place, but denies any change in bowel habits. The patient in the ER was noted to be tachycardic and tachypneic, the patient had elevated wbc count, elevated lactic acid, elevated gap, pt was at baseline renal function, had elevated BNP. CXR was reported as possible abscess in the right upper lobe. CT scan of the Chest shows a cavitary mass in the right upper lobe (night hawk read). Patient as admitted to the hospital with diagnosis of PNA, new onset mass (squamous cell Ca) . October 28: Patient seen examined, no acute overnight events, remains of 5L oxygen. He denies any new concerns. I reviewed the CT findings with him of possible mass vs abscess. I reviewed the CT with our radiologist who feels that this is abscess rather than a tumor. Night hawk read mentions likely malignant tumor. The radiologist does not feel that the mass/ abscess can be drained given severe empysema and risk of coverting abscess to empyema. patient remains on broad spectrum ABX vanco and imipenum. The patient remains of lasix for chf and cor pulmonale. Hemodynamically stable. I have consulted pulmonary for their guidance. Plan to sent fungal culture and stain, also afb and quantiferon which has been ordered. Pt placed in air borne isolation. October 29: This patient was admitted with signs and symptoms of pneumonia, but an unusual appearing infiltrate on his chest x-ray, suggesting the possibility of atypical pneumonia, versus abscess, versus lung cancer. He has known severe COPD/ emphysema. today,he notes his shortness of breath is much improved over admission. He says he has a pretty minimal, nonproductive, cough. He still feels chilled occasionally, but is unaware fever. He continues to have mild dyspnea on exertion, which he describes not only shortness of breath but as a feeling that his legs will collapse, if he tries to walk anywhere. He and his report that that sensation and weakness have been going on for about a week or so. However, she notes he really has not done that well, strength almonte, since he was discharged from rehabilitation, last year. He otherwise denies headaches or dizziness, sore throat, chest pain or palpitations, abdominal pain, nausea or vomiting, diarrhea or constipation, dysuria. -he continues to require high flow oxygen to maintain saturations above 90%. -He continues with elevated white blood cell countall which is essentially unchanged. -Nurses were concerned about giving him insulin last night, as blood sugars are generally ranging less than 200. He is on sliding scale insulin coverage. October 30: today, patient says he thinks he is feeling a little less short of breath with exertion although he does spend most of his time either in bed or in the chair. He continues to have a productive cough,but says he really doesn' t feel especially short of breath at rest. He tells me that last night while transferring from the chair back to the bed he suddenly got extremely weak, and essentially collapsed onto the bed. His nurse says that he seemed to have a staring spell that lasted a few seconds. His says he has episodes of this at home fairly often, and will sometimes changes color and start to look a little blue. He does appear to desaturate dramatically with any activity, and this is probably happening at home as well. He usesO2 2 L continuous at home, and his says that she has been reluctant to turn that up, for fear of causing CO2 retention. otherwise, he denies fever or chills sore throat, chest pain or palpitations, abdominal pain, nausea or vomiting, diarrhea or constipation, dysuria. October 31: - today, the patient notes he thinks he is having a little bit less shortness of breath with exertion compared to a couple of days ago. He is continuing to cough up phlegm, and says his chest feels clearer after he is able to cough up sputum. he denies fever or chills, or significant wheezing. -sputum culture today is growing MRSA. -He tells me today, that while he hurts all over, he is having quite a bit of pain in the right knee. He says when he stands up, the knee pain goes up significantly, and is interfering with his attempts at ambulation. -otherwise, he denies headaches or dizziness, chest pain or palpitations, abdominal pain, nausea or vomiting, diarrhea or constipation, dysuria. - Constitutional Vitals: Vital Signs Temp Pulse Resp BP Pulse Ox 98.8 F 83 24 H 115/71 95 10/31/16 04:01 10/31/16 06:01 10/31/16 06:01 10/31/16 08:00 10/31/16 06:01 Period Temp Pulse Resp BP Sys/[place]illo Pulse Ox Last 24 Hr 98.3 F-98.8 F 81-97 17-26 98-127/58-85 89-100 Intake and Output 10/30/16 10/31/16 10/31/16 21:59 05:59 13:59 Intake Total 340 / 340 Output Total 1090 / 1090 440 / 440 145 / 145 Balance -750 / -750 -440 / -440 -145 / -145 Weight 229 lb 3.2 oz Intake & Output: Intake & Output 10/30/16 10/31/16 10/31/16 21:59 05:59 13:59 Intake Total 340 / 340 Output Total 1090 / 1090 440 / 440 145 / 145 Balance -750 / -750 -440 / -440 -145 / -145 Weight 229 lb 3.2 oz Intake: Oral 340 / 340 Output: Urine Catheter Amount 890 / 890 440 / 440 145 / 145 Stool 200 / 200 Other: Meal Dinner Percent of Meal Consumed 100% Feeding Ability Independent heart rates varied from 83-105, respiratory rate 22-24, blood pressure 105/64, O2 saturation varies from 83-95% on 10 L nasal cannula. e has since been changed to a 7 L Oxymizer mask, with saturations ranging 91-95% on exam, he is in no acute distress. He continues to be quite talkative, but as he talks, his O2 saturations tend to drop into the low 80s. He also desaturates quickly with any activity. His even noted that his fingers were turning blue while he was talking to me, because his saturations were dropping. He has a little annoyed that his nasal cannula does not want to stay in place. neck is supple without obvious lymphadenopathy or JVD. Cardiac exam shows an irregularly irregular rhythm. Lungs:Left side is fairly clear. He has scattered wheezes noted on the right lung matos. Abdomen is soft and nontender. extremities:Continue to show 1-2+ pitting edema, with stasis dermatitis. This is probably improved. Neurologic exam: Is grossly nonfocal. Medical - PN: Obj Da - Labs CBC & Chem 7: 10/31/16 04:02 10/31/16 04:02 Labs: Abnormal Lab Results 10/31/16 10/31/16 10/30/16 04:02 04:02 04:15 WBC Hgb RDW 18.2 H Gran % Lymph % (Auto) 10.2 L Gran # Lymph # 0.9 L [place] # Chloride 94 L 95 L BUN 32 H 34 H Creatinine 1.6 H 1.6 H Glucose 117 H 138 H Uric Acid 11.8 H 11.6 H Calcium 8.5 L Magnesium 1.5 L Total Bilirubin GGT 66 H 64 H Lactate Dehydrogenase 280 H 340 H Total Protein 5.8 L Albumin 2.8 L 2.7 L Albumin/Globulin Ratio 0.9 L 0.8 L Vancomycin Trough 10/30/16 10/29/16 10/29/16 04:15 14:13 04:00 WBC Hgb 13.0 L RDW 18.5 H Gran % Lymph % (Auto) 11.0 L Gran # Lymph # 1.1 L [place] # 1.0 H Chloride BUN 36 H Creatinine 1.7 H Glucose 165 H Uric Acid 12.0 H Calcium Magnesium Total Bilirubin 1.1 H GGT 70 H Lactate Dehydrogenase 327 H Total Protein Albumin 3.1 L Albumin/Globulin Ratio Vancomycin Trough 16.0 H 10/29/16 04:00 WBC 12.8 H Hgb RDW 18.8 H Gran % 82.2 H Lymph % (Auto) 9.1 L Gran # 10.5 H Lymph # 1.2 L [place] # 1.0 H Chloride BUN Creatinine Glucose Uric Acid Calcium Magnesium Total Bilirubin GGT Lactate Dehydrogenase Total Protein Albumin Albumin/Globulin Ratio Vancomycin Trough October 31: Sputum culture is now identified as MRSA resistant to penicillins imipenem, Levaquin but sensitive to vancomycin, gentamicin , linezolid, rifampin , tetracycline October 30: Fungal antibodies: Pending October 28: Urinalysis: 25 leukocyte esterase, negative nitrate,s 30 g protein,50 g of glucose, 18 red blood cells -TB QuantiFERON test: Pending -sputum Gram stain: A few gram-positive cocci in pairs. - Culture is growing staph aureus, with sensitivities to follow. Fungal smear negative. culture negative for fungus. -Urine culture negative so far. echocardiogram: this shows moderate concentric LVH with ejection fraction of 60% . Moderate left atrial enlargement. Severe and probably disproportionate pulmonary hypertension with moderate right atrial enlargement and raised CVP. Estimated PA systolic pressure is 80 mmHg. October 27: BNP is elevated at 7715 -MRSA screen: Positive. -Blood cultures are negative so far. -EKG showed atrial fibrillation with a rate of 110. -ABG: On 5 L OxiMax: PH 7.47, PCO2 34, PO2 65, bicarbonate 24, O2 saturation 94% CT chest: -Severe centrilobular emphysema. -fluid-filled 9 cm bulla in the right upper lobe. Also 5 x 2 cm focal consolidating infiltrate in the adjacent right upper lobe. -Atypical CHF, with pre-existing pulmonary hypertension. Moderate cardiomegaly. -mildly enlarged lymph nodes in the right hilum and right mediastinum likely benign reactive. -Small amount of ascites, new compared to 7 months ago. -Increased risk for lung cancer, consider follow-up chest CT after resolution of pneumonia and CHF. Meds: Medications Acetaminophen (Tylenol) 650 mg PO Q4-6HP PRN PRN Reason: PAIN/FEVER > 101 Acetaminophen/Codeine Phosphate (Tylenol #3) 1 tab PO Q4-6HP PRN PRN Reason: Pain Last Admin: 10/31/16 10:41 Dose: 1 tab Amlodipine Besylate (Norvasc) 2.5 mg PO DAILY [facility] Last Admin: 10/31/16 10:30 Dose: 2.5 mg Bisacodyl (Dulcolax) 10 mg HI Q2-3DAYS PRN PRN Reason: Constipation Clotrimazole (Mycelex Crm 1%) 1 dose TOPICAL BID [facility] Last Admin: 10/30/16 20:56 Dose: 1 dose Dextrose (Dextrose 50%) 0 ml IV UD PRN PRN Reason: Hypoglycemia Diagnostic Test (Pha) (Accu-Chek) 1 each FS ACHS [facility] Last Admin: 10/31/16 10:00 Dose: 1 each Gabapentin (Neurontin) 600 mg PO TID [facility] Last Admin: 10/31/16 10:30 Dose: 600 mg Heparin Sodium (Porcine) (Heparin) 5,000 unit SQ Q12 [facility] Last Admin: 10/31/16 10:31 Dose: 5,000 unit Hydromorphone HCl (Dilaudid) 0.5 mg IV Q2HP PRN PRN Reason: Pain Imipenem/Cilastatin Sodium 500 (mg/ Sodium Chloride) 100 mls @ 100 mls/hr IV Q12H [facility] Last Admin: 10/30/16 20:56 Dose: 100 mls/hr Vancomycin HCl 1,500 mg/ (Sodium Chloride) 500 mls @ 333.3 mls/hr IV Q24H [facility] Last Admin: 10/30/16 15:08 Dose: 333.3 mls/hr Insulin Glargine (Lantus) 10 unit SQ BID [facility] Last Admin: 10/30/16 20:55 Dose: 10 unit Insulin Human Lispro (Humalog) 0 unit SQ ACHS [facility] PRN Reason: Protocol Last Admin: 10/31/16 10:32 Dose: Not Given Ipratropium [place] (Atrovent) 2.5 ml NEB Q4HRT [facility] Last Admin: 10/31/16 11:29 Dose: 2.5 ml Loratadine (Claritin) 10 mg PO QDAY [facility] Last Admin: 10/31/16 10:41 Dose: 10 mg Magnesium Hydroxide (Milk Of Magnesia) 30 ml PO DAILYP PRN PRN Reason: Constipation Naloxone HCl (Narcan) 0.1 mg IV Q2MIN PRN PRN Reason: Opiate Reversal Nitroglycerin (Nitrostat) 0.4 mg SL Q5-15MIN PRN PRN Reason: chest pain Non-Formulary Medication (Dextran 70/Hypromellose [Artificials Tears Drops]) 1 drp OPHTHALMIC TID PRN PRN Reason: dry eyes Ondansetron HCl (Zofran) 4 mg IV Q4-6HP PRN PRN Reason: Nausea And Vomiting Pantoprazole Sodium (Protonix) 40 mg PO QAMAC [facility] Last Admin: 10/31/16 10:29 Dose: 40 mg Nebivolol Hcl [ (Bystolic] 5 Mg) 1 dose PO BID [facility] Last Admin: 10/31/16 10:29 Dose: 1 dose Bismuth Subgallate ( (Devrom) 200 Mg Tab) 2 dose PO TIDPC [facility] Last Admin: 10/31/16 10:29 Dose: 2 dose Fluticasone/Salmeterol (Advair 250-50 Diskus) 1 puff INH Q12 [facility] Last Admin: 10/30/16 20:54 Dose: 1 puff Simvastatin (Zocor) 10 mg PO HS [facility] Last Admin: 10/30/16 20:55 Dose: 10 mg Sodium Chloride (Saline Flush) 10 ml IV Q8 [facility] Last Admin: 10/31/16 05:32 Dose: 10 ml Vancomycin HCl (Vancomycin Per Pharmacy) 1 order IV UD [facility] Vitamin B Complex (Vitamin B Complex) 1 cap PO DAILY [facility] Last Admin: 10/31/16 10:41 Dose: 1 cap Medical - PN: A/P - Time Spent With Patient Total time spent is greater than 50% in coordination of care (as documented) at patient's floor/unit and/or counseling patient: - Narrative A/P Narrative: #1. Pulmonary/infectious disease. Left lung pneumonia versus mass versus abscess : Drainage not possible as per radiology. -sputum culture is now growing MRSA. This is covered by the vancomycin, so we will continue with this. Also continue imipenem, regarding risk for pseudomonasand other organisms. - Clinically he has improved. White blood cell count is improved today, with absolute granulocyte count down to 7000. -aFB and other cultures are still pending. -Echocardiogram also shows severely elevated pulmonary pressure, consistent with severe pulmonary hypertension. This probably explains why he becomes so hypoxic and dyspneic with minimal exertion. -i had a fairly prolonged discussion with the patient and his today, about his pulmonary hypertension, and the fact that that probably explains why he is so dyspneic with any exertion . I discussed that we will try him on low-dose Norvasc, to see if this provides any relief. I am concerned however that this will lower his blood pressure too much, so Bumex is on hold for now. -continue pulmonary toilet, bronchodilators high flow oxygen - Dr. Cordero of pulmonary, is also following, and consultation is appreciated. - TB QuantiFERON assay results today are read as negative. -Chest CT is also worrisome for possible underlying lung cancer. Patient will need follow-up CAT scan after current problems are resolved. -Acute on chronic Resp Failure: At home on 2L, presently on 7l,. due to copd, and pna. resume Advair at discharge. #2. Sepsis: due to pneumonia - resolved. #3. Cardiac. -CHF/ Cor Pulmonale: patient has an echocardiogram more consistent with right- sided heart failure, due to pulmonary hypertension. IV Lasix is discontinued. discontinue Bumex at this time. -continue pravastatin. continue nebivolol. -CAD: last stress test shows inferior lateral reversible ischemic region, not cath done as per last card note. medical management planned. NO CP. -atrial fibrillation. Rate controlled. Not a candidate for long-term anticoagulation, per cardiology. #4. . h/o Ca Bladder: s/p cisplatin, patient did not tolerate course, follows with urology. #5.Endocrine. DM: Accu-Cheks are ranging from 130 to 224 -resumed Lantus. continue sliding scale. -glipizide is on hold. #6. HTN: Resume home medications. monitor bp. #7. GI. Ulcerative colitis: patient is s/p colectomy has a ileostomy in place. Continue omeprazole, for presumed GERD. #8. DVT hep sq 39. CODE STATUS:No CPR. #10. Neurologic. Neuropathy. -- continue gabapentin. #11. Patient does report general achiness today, especially pain in his knees. Tylenol does not seem to control the pain. He doesn't tolerate strong pain medicines very well, but his thinks he has tolerated Tylenol with Codeine in the past, so his was added when necessary. -Today he talks about more persistent right knee pain . Since he would not likely tolerate an anti-inflammatory, I will try a Lidoderm patch over the knee , to see if this gives him any relief. #12. Renal. apparent chronic kidney disease, with creatinine stable around 1.6-1.7. Uric acid remains elevated at 11.8, but he does not have obvious gout at this time. -Magnesium is a bit low. this was replaced IV. Bumex is on hold, so this should be ess of an issue. Approximately 35 minutes was spent today, reviewing the patient's test results , interviewing and examining him, reviewing plan of care with staff, as well as the patient and his ,and writing orders. Medical - PN: Qual - VTE Deep Vein Thrombosis/Pulmonary Embolism Present on Admission: No
[2016-10-31] MEDS: VANCOMYCIN 1,500 MG in 0.9 % SODIUM CHLORIDE 500 ML IV SCH (15:50)
[2016-10-31] MEDS: LIDOCAINE PATCH TOPICAL SCH ×2 (16:02→16:03)
[2016-10-31] MEDS: SIMVASTATIN 10 MG TABLET PO SCH (21:09)
[2016-11-01] MEDS: 0.9 % SODIUM CHLORIDE 10 ML SYRINGE IV SCH ×4 (03:50→21:57)
[2016-11-01] MEDS: IPRATROPIUM 2.5 ML AMPUL.NEB NEB SCH ×6 (03:50→23:07)
[2016-11-01 05:36] LABS: Basophils # (Auto) 0 K/mcL (0.0-0.3); Basophils % (Auto) 0.3 % (0.0-2.0); Eosinophils # (Auto) 0.4 K/mcL (0.0-0.7); Eosinophils % (Auto) 4.4 % (0.0-7.0); Granulocytes % (Auto) 76.1 % (38.0-78.0); Lymphocytes # (Auto) 0.9 K/mcL (1.5-4.8); Mean Cell Volume 88.3 fL (80.0-100.0); Mean Corpuscular HGB Conc 32.6 g/dL (31.0-36.0); Mean Corpuscular Hemoglobin 28.8 pg (26.0-34.0); Monocytes # (Auto) 0.7 K/mcL (0.1-0.9); Monocytes % (Auto) 8.2 % (1.0-12.0); Platelet Count 175 K/mcL (140-440); RBC 4.54 M/mcL (4.50-5.90); Red Cell Distribution Width 18.2 % (11.5-14.5)
[2016-11-01 06:09] LABS: ALT/SGPT 8 U/l (0-40); Albumin 2.8 gm/dL (3.2-5.2); Albumin/Globulin Ratio 0.9 (1.0-2.3); Alkaline Phosphatase 90 U/L (39-117); Bilirubin,Direct 0.2 mg/dL (0.0-0.3); Blood Urea Nitrogen 34 mg/dl (8-23); Gamma Glutamyl Transpeptidase 66 U/L (8-61); Magnesium 1.9 mg/dL (1.6-2.5); Uric Acid 11.5 mg/dL (2.5-8.0)
[2016-11-01] MEDS: BISMUTH SUBGALLATE PO SCH ×3 (08:29→18:30)
[2016-11-01] MEDS: INSULIN LISPRO 1 UNIT/0.01 ML UNIT SQ SCH ×4 (08:30→21:56)
[2016-11-01] MEDS: LORATADINE 10 MG TABLET PO SCH (08:30)
[2016-11-01] MEDS: PANTOPRAZOLE 40 MG TABLET PO SCH (08:31)
[2016-11-01] MEDS: amLODIPine 5 MG TABLET PO SCH (08:31)
[2016-11-01] MEDS: GABAPENTIN 300 MG CAPSULE PO SCH ×3 (08:31→21:56)
[2016-11-01] MEDS: NEBIVOLOL HCL 5 MG PO SCH ×2 (08:33→21:58)
[2016-11-01] MEDS: VITAMIN B COMPLEX 1 CAPSULE PO SCH (08:33)
[2016-11-01] MEDS: HEPARIN 5,000 UNIT/ML VIAL SQ SCH ×2 (08:33→21:56)
[2016-11-01] MEDS: IMIPENEM/CILASTATIN SODIUM 500 MG in 0.9 % SODIUM CHLORIDE 100 ML IV SCH ×2 (08:34→21:56)
[2016-11-01] MEDS: ACETAMINOPHEN W/CODEINE #3 1 TABLET PO PRN (08:35)
[2016-11-01] MEDS: FLUTICASONE/SALMETEROL 250/50 INHALER #14 INH SCH ×2 (09:30→21:57)
[2016-11-01] MEDS: CLOTRIMAZOLE CRM 1% 1 DOSE TUBE TOPICAL SCH ×2 (09:30→21:58)
--- NOTE | 2016-11-01 11:30 | Internal Med Progress Note ---
Medical - PN: Subj Patient information: Note initiated : 11/01/16 at 11:30 am Patient: Partha Samuels 81 y/o M admitted on 10/27/16 for SOB/Lt Lung Mass, COPD , PNA, Sepsis, CHF. Interval history: october 27, 2016:History of present illness: Mr. Samuels is a 81 year old male with multiple medical issues. presented to the ER with shortness of breath, increased generalized pain, and subjective sensation of pain and fever. The patient notes that he was doing well approximately upto 2 weeks ago, and since then he has been having gradual decline in his condition. He has intermittent bouts of shortness of breath. He admits to having cough with whitish greyish sputum, fever with temp of 99, chills and intermittent rigors. The patient is a poor historian and had significant tangentiality to his history. He notes that some times he gets sob while passing urine. but denies any burning urine, foul smelling urine or increased frequency of urination. He denies any abdominal pain, nausea and or vomiting. He has a ileostomy in place, but denies any change in bowel habits. The patient in the ER was noted to be tachycardic and tachypneic, the patient had elevated wbc count, elevated lactic acid, elevated gap, pt was at baseline renal function, had elevated BNP. CXR was reported as possible abscess in the right upper lobe. CT scan of the Chest shows a cavitary mass in the right upper lobe (night hawk read). Patient as admitted to the hospital with diagnosis of PNA, new onset mass (squamous cell Ca) . October 28: Patient seen examined, no acute overnight events, remains of 5L oxygen. He denies any new concerns. I reviewed the CT findings with him of possible mass vs abscess. I reviewed the CT with our radiologist who feels that this is abscess rather than a tumor. Night hawk read mentions likely malignant tumor. The radiologist does not feel that the mass/ abscess can be drained given severe empysema and risk of coverting abscess to empyema. patient remains on broad spectrum ABX vanco and imipenum. The patient remains of lasix for chf and cor pulmonale. Hemodynamically stable. I have consulted pulmonary for their guidance. Plan to sent fungal culture and stain, also afb and quantiferon which has been ordered. Pt placed in air borne isolation. October 29: This patient was admitted with signs and symptoms of pneumonia, but an unusual appearing infiltrate on his chest x-ray, suggesting the possibility of atypical pneumonia, versus abscess, versus lung cancer. He has known severe COPD/ emphysema. today,he notes his shortness of breath is much improved over admission. He says he has a pretty minimal, nonproductive, cough. He still feels chilled occasionally, but is unaware fever. He continues to have mild dyspnea on exertion, which he describes not only shortness of breath but as a feeling that his legs will collapse, if he tries to walk anywhere. He and his report that that sensation and weakness have been going on for about a week or so. However, she notes he really has not done that well, strength almonte, since he was discharged from rehabilitation, last year. He otherwise denies headaches or dizziness, sore throat, chest pain or palpitations, abdominal pain, nausea or vomiting, diarrhea or constipation, dysuria. -he continues to require high flow oxygen to maintain saturations above 90%. -He continues with elevated white blood cell countall which is essentially unchanged. -Nurses were concerned about giving him insulin last night, as blood sugars are generally ranging less than 200. He is on sliding scale insulin coverage. October 30: today, patient says he thinks he is feeling a little less short of breath with exertion although he does spend most of his time either in bed or in the chair. He continues to have a productive cough,but says he really doesn' t feel especially short of breath at rest. He tells me that last night while transferring from the chair back to the bed he suddenly got extremely weak, and essentially collapsed onto the bed. His nurse says that he seemed to have a staring spell that lasted a few seconds. His says he has episodes of this at home fairly often, and will sometimes changes color and start to look a little blue. He does appear to desaturate dramatically with any activity, and this is probably happening at home as well. He usesO2 2 L continuous at home, and his says that she has been reluctant to turn that up, for fear of causing CO2 retention. otherwise, he denies fever or chills sore throat, chest pain or palpitations, abdominal pain, nausea or vomiting, diarrhea or constipation, dysuria. October 31: - today, the patient notes he thinks he is having a little bit less shortness of breath with exertion compared to a couple of days ago. He is continuing to cough up phlegm, and says his chest feels clearer after he is able to cough up sputum. he denies fever or chills, or significant wheezing. -sputum culture today is growing MRSA. -He tells me today, that while he hurts all over, he is having quite a bit of pain in the right knee. He says when he stands up, the knee pain goes up significantly, and is interfering with his attempts at ambulation. -otherwise, he denies headaches or dizziness, chest pain or palpitations, abdominal pain, nausea or vomiting, diarrhea or constipation, dysuria. November 01: -the patient actually is feeling quite a bit better today. He still has a cough productive ofa lot of sputum, but is generally feeling less short of breath. Physical therapy said he did seem stronger today, when trying to transfer from bed to chair. we had him use an oxi-mask yesterday and last night, and that did a better job at maintaining his O2 saturations but he does complain that it makes him feel quite claustrophobic, so did go back to the nasal cannula this morning. Even while talking with me in the room with a nasal cannula on he will drop his O2 saturations into the 70s, and fingernails will turn blue. -I did hold his oral bumex, so that we could add Norvasc, to try to help with pulmonary hypertension issues. Blood pressures are running borderline low but he is of course also having some increased edema in his legs and scrotum. -right knee pain is a bit better today, using both Tylenol with Codeine as well as the Lidoderm patch. patient otherwise denies fever or chills, headaches or dizziness, chest pain He continues to have dyspnea with minimal exertion. He denies abdominal pain, nausea or vomiting, diarrhea or constipation. Serrano catheter remains in place, as staff does not feel that he can get up and down to use a urinal. - Constitutional Vitals: Vital Signs Temp Pulse Resp BP Pulse Ox 97.7 F 88 19 115/67 95 11/01/16 11:21 11/01/16 09:29 11/01/16 11:21 11/01/16 11:21 11/01/16 11:21 Period Temp Pulse Resp BP Sys/Portillo Pulse Ox Last 24 Hr 97.4 F-97.9 F 78-107 11-23 98-125/61-79 77-100 Intake and Output 10/31/16 11/01/16 11/01/16 21:59 05:59 13:59 Intake Total 540 / 540 100 / 100 Output Total 830 / 830 220 / 220 Balance -290 / -290 -120 / -120 Weight 232 lb 4.8 oz Intake & Output: Intake & Output 10/31/16 11/01/16 11/01/16 21:59 05:59 13:59 Intake Total 540 / 540 100 / 100 Output Total 830 / 830 220 / 220 Balance -290 / -290 -120 / -120 Weight 232 lb 4.8 oz Intake: IV 100 / 100 Primaxin 500 mg In Sodium 100 / 100 Chloride 0.9% 100 ml @ 100 mls/hr IV Q12H [facility] Rx #:[id number] Oral 540 / 540 Output: Urine Catheter Amount 830 / 830 220 / 220 Other: Meal Dinner Percent of Meal Consumed 100% Feeding Ability Assist with Tray Set Up on exam, he is sitting up in a chair, and seems in good spirits. We were able to discontinue the negative airflow room, as his TB test came back negative. He continues to cough occasionally. While he is talking to me his O2 saturations do drop into the 70s, and his fingernails turn somewhat blue. When he is asked to close his mouth and brief oxygen through his nasal cannula, oxygen rebounds quite quickly. he is afebrile with controlled heart rate. Current respiratory rate is 16, blood pressure 103/72, O2 saturation is 95% on 5 L nasal cannula he is in no acute distress, and remains pleasant and talkative. neck is supple, without obvious lymphadenopathy or JVD. Cardiac exam his only slightly irregular. Lungs:He continues to have scattered crackles in the right lung matos, but otherwise no significant wheezing or rhonchi. Abdomen is soft and nontender. Extremities:Continue to show about 2+ edema, probably unchanged from yesterday. Nurses note that he seems to have more scrotum edema now as well. Neurologic exam: Patient is alert and oriented, calm and cooperative. Motor exam is grossly nonfocal. Physical therapy does note continued weakness and high fall risk. Medical - PN: Obj Da - Labs CBC & Chem 7: 11/01/16 04:09 11/01/16 04:09 Labs: Abnormal Lab Results 11/01/16 11/01/16 10/31/16 04:09 04:09 04:02 Hgb 13.1 L Hct 40.1 L RDW 18.2 H Lymph % (Auto) 11.0 L Lymph # 0.9 L [place] # Chloride 94 L BUN 34 H 32 H Creatinine 1.4 H 1.6 H Glucose 140 H 117 H Uric Acid 11.5 H 11.8 H Calcium 8.5 L Magnesium 1.5 L GGT 66 H 66 H Lactate Dehydrogenase 278 H 280 H Total Protein 5.8 L 5.8 L Albumin 2.8 L 2.8 L Albumin/Globulin Ratio 0.9 L 0.9 L Vancomycin Trough 10/31/16 10/30/16 10/30/16 04:02 04:15 04:15 Hgb 13.0 L Hct RDW 18.2 H 18.5 H Lymph % (Auto) 10.2 L 11.0 L Lymph # 0.9 L 1.1 L [place] # 1.0 H Chloride 95 L BUN 34 H Creatinine 1.6 H Glucose 138 H Uric Acid 11.6 H Calcium Magnesium GGT 64 H Lactate Dehydrogenase 340 H Total Protein Albumin 2.7 L Albumin/Globulin Ratio 0.8 L Vancomycin Trough 10/29/16 14:13 Hgb Hct RDW Lymph % (Auto) Lymph # [place] # Chloride BUN Creatinine Glucose Uric Acid Calcium Magnesium GGT Lactate Dehydrogenase Total Protein Albumin Albumin/Globulin Ratio Vancomycin Trough 16.0 H November 01: -intake and output: He is -3925 mLs admission -blood cultures continue to be negative so far October 31: Sputum culture is now identified as MRSA resistant to penicillins imipenem, Levaquin but sensitive to vancomycin, gentamicin , linezolid, rifampin, tetracycline October 30: Fungal antibodies: Pending October 28: Urinalysis: 25 leukocyte esterase, negative nitrate,s 30 g protein,50 g of glucose, 18 red blood cells -TB QuantiFERON test: negative -sputum Gram stain: A few gram-positive cocci in pairs. - Culture is growing staph aureus, with sensitivities to follow. Fungal smear negative. culture negative for fungus. -Urine culture negative so far. echocardiogram: this shows moderate concentric LVH with ejection fraction of 60% . Moderate left atrial enlargement. Severe and probably disproportionate pulmonary hypertension with moderate right atrial enlargement and raised CVP. Estimated PA systolic pressure is 80 mmHg. October 27: BNP is elevated at 7715 -MRSA screen: Positive. -Blood cultures are negative so far. -EKG showed atrial fibrillation with a rate of 110. -ABG: On 5 L OxiMax: PH 7.47, PCO2 34, PO2 65, bicarbonate 24, O2 saturation 94% CT chest: -Severe centrilobular emphysema. -fluid-filled 9 cm bulla in the right upper lobe. Also 5 x 2 cm focal consolidating infiltrate in the adjacent right upper lobe. -Atypical CHF, with pre-existing pulmonary hypertension. Moderate cardiomegaly. -mildly enlarged lymph nodes in the right hilum and right mediastinum likely benign reactive. -Small amount of ascites, new compared to 7 months ago. -Increased risk for lung cancer, consider follow-up chest CT after resolution of pneumonia and CHF. Meds: Medications Acetaminophen (Tylenol) 650 mg PO Q4-6HP PRN PRN Reason: PAIN/FEVER > 101 Acetaminophen/Codeine Phosphate (Tylenol #3) 1 tab PO Q4-6HP PRN PRN Reason: Pain Last Admin: 11/01/16 08:35 Dose: 1 tab Amlodipine Besylate (Norvasc) 2.5 mg PO DAILY [facility] Last Admin: 11/01/16 08:31 Dose: 2.5 mg Bisacodyl (Dulcolax) 10 mg UT Q2-3DAYS PRN PRN Reason: Constipation Clotrimazole (Mycelex Crm 1%) 1 dose TOPICAL BID [facility] Last Admin: 10/31/16 21:14 Dose: 1 dose Dextrose (Dextrose 50%) 0 ml IV UD PRN PRN Reason: Hypoglycemia Diagnostic Test (Pha) (Accu-Chek) 1 each FS ACHS [facility] Last Admin: 10/31/16 21:02 Dose: 1 each Gabapentin (Neurontin) 600 mg PO TID [facility] Last Admin: 11/01/16 08:31 Dose: 600 mg Heparin Sodium (Porcine) (Heparin) 5,000 unit SQ Q12 [facility] Last Admin: 11/01/16 08:33 Dose: 5,000 unit Hydromorphone HCl (Dilaudid) 0.5 mg IV Q2HP PRN PRN Reason: Pain Imipenem/Cilastatin Sodium 500 (mg/ Sodium Chloride) 100 mls @ 100 mls/hr IV Q12H [facility] Last Admin: 11/01/16 08:34 Dose: 100 mls/hr Vancomycin HCl 1,500 mg/ (Sodium Chloride) 500 mls @ 333.3 mls/hr IV Q24H [facility] Last Admin: 10/31/16 15:50 Dose: 333.3 mls/hr Insulin Glargine (Lantus) 10 unit SQ BID [facility] Last Admin: 10/31/16 21:10 Dose: 10 unit Insulin Human Lispro (Humalog) 0 unit SQ ACHS [facility] PRN Reason: Protocol Last Admin: 10/31/16 21:09 Dose: 2 unit Ipratropium [place] (Atrovent) 2.5 ml NEB Q4HRT [facility] Last Admin: 11/01/16 08:11 Dose: 2.5 ml Lidocaine (Lidoderm) 1 patch TOPICAL DAILY@1600 [facility] Last Admin: 10/31/16 16:02 Dose: 1 patch Lidocaine (Lidoderm) 0 patch TOPICAL DAILY@1600 [facility] Last Admin: 10/31/16 16:03 Dose: 1 patch Loratadine (Claritin) 10 mg PO QDAY [facility] Last Admin: 11/01/16 08:30 Dose: 10 mg Magnesium Hydroxide (Milk Of Magnesia) 30 ml PO DAILYP PRN PRN Reason: Constipation Naloxone HCl (Narcan) 0.1 mg IV Q2MIN PRN PRN Reason: Opiate Reversal Nitroglycerin (Nitrostat) 0.4 mg SL Q5-15MIN PRN PRN Reason: chest pain Non-Formulary Medication (Dextran 70/Hypromellose [Artificials Tears Drops]) 1 drp OPHTHALMIC TID PRN PRN Reason: dry eyes Ondansetron HCl (Zofran) 4 mg IV Q4-6HP PRN PRN Reason: Nausea And Vomiting Pantoprazole Sodium (Protonix) 40 mg PO QAMAC [facility] Last Admin: 11/01/16 08:31 Dose: 40 mg Nebivolol Hcl [ (Bystolic] 5 Mg) 1 dose PO BID [facility] Last Admin: 11/01/16 08:33 Dose: 1 dose Bismuth Subgallate ( (Devrom) 200 Mg Tab) 2 dose PO TIDPC [facility] Last Admin: 11/01/16 08:29 Dose: 2 dose Fluticasone/Salmeterol (Advair 250-50 Diskus) 1 puff INH Q12 [facility] Last Admin: 10/31/16 21:14 Dose: 1 puff Simvastatin (Zocor) 10 mg PO HS [facility] Last Admin: 10/31/16 21:09 Dose: 10 mg Sodium Chloride (Saline Flush) 10 ml IV Q8 [facility] Last Admin: 11/01/16 03:50 Dose: 10 ml Vancomycin HCl (Vancomycin Per Pharmacy) 1 order IV UD [place]E Vitamin B Complex (Vitamin B Complex) 1 cap PO DAILY [facility] Last Admin: 11/01/16 08:33 Dose: 1 cap Medical - PN: A/P - Time Spent With Patient Total time spent is greater than 50% in coordination of care (as documented) at patient's floor/unit and/or counseling patient: 25 - 35 minutes - Narrative A/P Narrative: #1. Pulmonary/infectious disease. Left lung pneumonia versus mass versus abscess : Drainage not possible as per radiology. -sputum culture is now growing MRSA. This is covered by the vancomycin, so we will continue with this. Also continue imipenem, regarding risk for pseudomonas and other organisms. - Clinically he has improved. White blood cell count is improved today, with absolute granulocyte count down to 6200. -aFB and other cultures are still pending. -Echocardiogram also shows severely elevated pulmonary pressure, consistent with severe pulmonary hypertension. This probably explains why he becomes so hypoxic and dyspneic with minimal exertion. -i had a fairly prolonged discussion with the patient and his about his pulmonary hypertension, and the fact that that probably explains why he is so dyspneic with any exertion . I discussed that we will try him on low-dose Norvasc, to see if this provides any relief. -Bumex was held as I was not sure his blood pressure would tolerate both but he does seem to have a little more swelling today. We will try adding the Bumex back, and see if his blood pressure control rate this. otherwise, he is tolerating the Norvasc. -continue pulmonary toilet, bronchodilators high flow oxygen - Dr. Cordero of pulmonary, is also following, and consultation is appreciated. -Chest CT is also worrisome for possible underlying lung cancer. Patient will need follow-up CAT scan after current problems are resolved. -Acute on chronic Resp Failure: At home on 2L, e likely needs to use 1 level of oxygen for rest, and then significantly increase his FiO2 prior to any activity. -resume Advair at discharge. #2. Sepsis: due to pneumonia - resolved. #3. Cardiac. -CHF/ Cor Pulmonale: patient has an echocardiogram more consistent with right- sided heart failure, due to pulmonary hypertension. IV Lasix is discontinued. -trial low-dose oral Bumex again for uncomfortable swelling. However I do not think he is at high risk for pulmonary vascular congestion.. -continue pravastatin. continue nebivolol. -CAD: last stress test shows inferior lateral reversible ischemic region, not cath done as per last card note. medical management planned. NO CP. -atrial fibrillation. Rate controlled. Not a candidate for long-term anticoagulation, per cardiology. #4. . h/o Ca Bladder: s/p cisplatin, patient did not tolerate course, follows with urology. #5.Endocrine. DM: Accu-Cheks are ranging from 117 - 207. -resumed Lantus. continue sliding scale. -glipizide is on hold. #6. HTN: he has been relatively hypotensive lately. We are titrating meds. #7. GI. Ulcerative colitis: patient is s/p colectomy has a ileostomy in place. Continue omeprazole, for presumed GERD. #8. DVT hep sq 39. CODE STATUS:No CPR. #10. Neurologic. Neuropathy. -- continue gabapentin. #11. chronic pain, and particularly chronic knee pain. Tylenol No. 3 and Lidoderm patch were added, and do seem to be helping. #12. Renal. apparent chronic kidney disease, with creatinine stable around 1.6-1.7. Uric acid remains elevated at 11.8, but he does not have obvious gout at this time. -Magnesium Was replaced IV This will need to be monitored, if he is to resume his Bumex. Approximately 35 minutes was spent today, reviewing the patient's test results , interviewing and examining him, reviewing plan of care with staff, as well as the patient and his ,and writing orders. Medical - PN: Qual - VTE Deep Vein Thrombosis/Pulmonary Embolism Present on Admission: No
[2016-11-01] MEDS: INSULIN GLARGINE, HUMAN 1 UNIT/0.01 ML SQ SCH ×2 (13:15→21:56)
[2016-11-01] MEDS ORDERED: BUMETANIDE 1 MG TABLET PO ONE (13:46)
[2016-11-01] MEDS: LIDOCAINE PATCH TOPICAL SCH ×2 (16:00→19:56)
[2016-11-01] MEDS: VANCOMYCIN 1,500 MG in 0.9 % SODIUM CHLORIDE 500 ML IV SCH (19:10)
--- NOTE | 2016-11-01 21:00 | XRay Report ---
CLINICAL INFORMATION: Follow pneumonia COMPARISON: 10/27/2016 FINDINGS: The heart is mildly enlarged but unchanged. Mediastinum is slightly accentuated by rotation and within normal limits. Pulmonary vessels are now moderately congested and there is moderate interstitial edema throughout both lungs. The 9 cm region of loculated pleural effusion versus mass in the right apex is unchanged. IMPRESSION: Severe CHF - worsening 9 cm right apical density is likely a loculated pleural effusion rather than a mass. If chest CT is not performed, this should be followed to radiographic resolution Interpreted and Authenticated by: Medardo Solorzano 11/01/16
[2016-11-01] MEDS: SIMVASTATIN 10 MG TABLET PO SCH (21:56)
[2016-11-02] MEDS: ACETAMINOPHEN W/CODEINE #3 1 TABLET PO PRN ×2 (02:34→21:19)
[2016-11-02] MEDS: IPRATROPIUM 2.5 ML AMPUL.NEB NEB SCH ×6 (03:31→22:58)
[2016-11-02] MEDS: 0.9 % SODIUM CHLORIDE 10 ML SYRINGE IV SCH ×3 (05:38→21:22)
[2016-11-02 05:42] LABS: Basophils # (Auto) 0 K/mcL (0.0-0.3); Basophils % (Auto) 0.2 % (0.0-2.0); Eosinophils # (Auto) 0.4 K/mcL (0.0-0.7); Eosinophils % (Auto) 4.1 % (0.0-7.0); Granulocytes % (Auto) 76.7 % (38.0-78.0); Lymphocytes # (Auto) 0.9 K/mcL (1.5-4.8); Lymphocytes % (Auto) 9.5 % (15.5-49.0); Mean Cell Volume 88.1 fL (80.0-100.0); Mean Corpuscular HGB Conc 32.4 g/dL (31.0-36.0); Mean Corpuscular Hemoglobin 28.5 pg (26.0-34.0); Monocytes # (Auto) 0.9 K/mcL (0.1-0.9); Monocytes % (Auto) 9.5 % (1.0-12.0); Platelet Count 188 K/mcL (140-440); RBC 4.69 M/mcL (4.50-5.90); Red Cell Distribution Width 18.4 % (11.5-14.5)
[2016-11-02 06:07] LABS: ALT/SGPT 8 U/l (0-40); Albumin 2.8 gm/dL (3.2-5.2); Albumin/Globulin Ratio 0.9 (1.0-2.3); Alkaline Phosphatase 99 U/L (39-117); Bilirubin,Direct 0.2 mg/dL (0.0-0.3); Blood Urea Nitrogen 32 mg/dl (8-23); Gamma Glutamyl Transpeptidase 71 U/L (8-61); Magnesium 1.6 mg/dL (1.6-2.5); Uric Acid 11.4 mg/dL (2.5-8.0)
[2016-11-02] MEDS: INSULIN LISPRO 1 UNIT/0.01 ML UNIT SQ SCH ×5 (07:39→21:18)
[2016-11-02] MEDS: PANTOPRAZOLE 40 MG TABLET PO SCH (07:41)
[2016-11-02] MEDS ORDERED: BUMETANIDE 1 MG TABLET PO SCH (08:00)
[2016-11-02] MEDS ORDERED: amLODIPine 5 MG TABLET PO SCH (08:00)
[2016-11-02] MEDS: BISMUTH SUBGALLATE PO SCH ×4 (09:17→17:11)
[2016-11-02] MEDS: NEBIVOLOL HCL 5 MG PO SCH ×2 (09:18→21:17)
[2016-11-02] MEDS: INSULIN GLARGINE, HUMAN 1 UNIT/0.01 ML SQ SCH ×2 (09:20→21:18)
[2016-11-02] MEDS: HEPARIN 5,000 UNIT/ML VIAL SQ SCH ×2 (09:20→21:16)
[2016-11-02] MEDS: IMIPENEM/CILASTATIN SODIUM 500 MG in 0.9 % SODIUM CHLORIDE 100 ML IV SCH ×2 (09:21→21:17)
[2016-11-02] MEDS: GABAPENTIN 300 MG CAPSULE PO SCH ×3 (09:21→21:18)
[2016-11-02] MEDS: VITAMIN B COMPLEX 1 CAPSULE PO SCH (09:26)
[2016-11-02] MEDS: LORATADINE 10 MG TABLET PO SCH (09:26)
[2016-11-02] MEDS: FLUTICASONE/SALMETEROL 250/50 INHALER #14 INH SCH ×2 (09:29→21:20)
[2016-11-02] MEDS: CLOTRIMAZOLE CRM 1% 1 DOSE TUBE TOPICAL SCH ×2 (09:30→21:20)
--- NOTE | 2016-11-02 11:29 | Internal Med Progress Note ---
Medical - PN: Subj Patient information: Note initiated : 11/02/16 at 11:29 am Service Date, if different from initiated Date: [] Patient: Partha Samuels 81 y/o M admitted on 10/27/16 for SOB/Lt Lung Mass, COPD , PNA, Sepsis, CHF. Chief Complaint: [] Interval history: october 27, 2016:History of present illness: Mr. Samuels is a 81 year old male with multiple medical issues. presented to the ER with shortness of breath, increased generalized pain, and subjective sensation of pain and fever. The patient notes that he was doing well approximately upto 2 weeks ago, and since then he has been having gradual decline in his condition. He has intermittent bouts of shortness of breath. He admits to having cough with whitish greyish sputum, fever with temp of 99, chills and intermittent rigors. The patient is a poor historian and had significant tangentiality to his history. He notes that some times he gets sob while passing urine. but denies any burning urine, foul smelling urine or increased frequency of urination. He denies any abdominal pain, nausea and or vomiting. He has a ileostomy in place, but denies any change in bowel habits. The patient in the ER was noted to be tachycardic and tachypneic, the patient had elevated wbc count, elevated lactic acid, elevated gap, pt was at baseline renal function, had elevated BNP. CXR was reported as possible abscess in the right upper lobe. CT scan of the Chest shows a cavitary mass in the right upper lobe (night hawk read). Patient as admitted to the hospital with diagnosis of PNA, new onset mass (squamous cell Ca) . October 28: Patient seen examined, no acute overnight events, remains of 5L oxygen. He denies any new concerns. I reviewed the CT findings with him of possible mass vs abscess. I reviewed the CT with our radiologist who feels that this is abscess rather than a tumor. Night hawk read mentions likely malignant tumor. The radiologist does not feel that the mass/ abscess can be drained given severe empysema and risk of coverting abscess to empyema. patient remains on broad spectrum ABX vanco and imipenum. The patient remains of lasix for chf and cor pulmonale. Hemodynamically stable. I have consulted pulmonary for their guidance. Plan to sent fungal culture and stain, also afb and quantiferon which has been ordered. Pt placed in air borne isolation. October 29: This patient was admitted with signs and symptoms of pneumonia, but an unusual appearing infiltrate on his chest x-ray, suggesting the possibility of atypical pneumonia, versus abscess, versus lung cancer. He has known severe COPD/ emphysema. today,he notes his shortness of breath is much improved over admission. He says he has a pretty minimal, nonproductive, cough. He still feels chilled occasionally, but is unaware fever. He continues to have mild dyspnea on exertion, which he describes not only shortness of breath but as a feeling that his legs will collapse, if he tries to walk anywhere. He and his report that that sensation and weakness have been going on for about a week or so. However, she notes he really has not done that well, strength almonte, since he was discharged from rehabilitation, last year. He otherwise denies headaches or dizziness, sore throat, chest pain or palpitations, abdominal pain, nausea or vomiting, diarrhea or constipation, dysuria. -he continues to require high flow oxygen to maintain saturations above 90%. -He continues with elevated white blood cell countall which is essentially unchanged. -Nurses were concerned about giving him insulin last night, as blood sugars are generally ranging less than 200. He is on sliding scale insulin coverage. October 30: today, patient says he thinks he is feeling a little less short of breath with exertion although he does spend most of his time either in bed or in the chair. He continues to have a productive cough,but says he really doesn' t feel especially short of breath at rest. He tells me that last night while transferring from the chair back to the bed he suddenly got extremely weak, and essentially collapsed onto the bed. His nurse says that he seemed to have a staring spell that lasted a few seconds. His says he has episodes of this at home fairly often, and will sometimes changes color and start to look a little blue. He does appear to desaturate dramatically with any activity, and this is probably happening at home as well. He usesO2 2 L continuous at home, and his says that she has been reluctant to turn that up, for fear of causing CO2 retention. otherwise, he denies fever or chills sore throat, chest pain or palpitations, abdominal pain, nausea or vomiting, diarrhea or constipation, dysuria. October 31: - today, the patient notes he thinks he is having a little bit less shortness of breath with exertion compared to a couple of days ago. He is continuing to cough up phlegm, and says his chest feels clearer after he is able to cough up sputum. he denies fever or chills, or significant wheezing. -sputum culture today is growing MRSA. -He tells me today, that while he hurts all over, he is having quite a bit of pain in the right knee. He says when he stands up, the knee pain goes up significantly, and is interfering with his attempts at ambulation. -otherwise, he denies headaches or dizziness, chest pain or palpitations, abdominal pain, nausea or vomiting, diarrhea or constipation, dysuria. November 01: -the patient actually is feeling quite a bit better today. He still has a cough productive ofa lot of sputum, but is generally feeling less short of breath. Physical therapy said he did seem stronger today, when trying to transfer from bed to chair. we had him use an oxi-mask yesterday and last night, and that did a better job at maintaining his O2 saturations but he does complain that it makes him feel quite claustrophobic, so did go back to the nasal cannula this morning. Even while talking with me in the room with a nasal cannula on he will drop his O2 saturations into the 70s, and fingernails will turn blue. -I did hold his oral bumex, so that we could add Norvasc, to try to help with pulmonary hypertension issues. Blood pressures are running borderline low but he is of course also having some increased edema in his legs and scrotum. -right knee pain is a bit better today, using both Tylenol with Codeine as well as the Lidoderm patch. patient otherwise denies fever or chills, headaches or dizziness, chest pain He continues to have dyspnea with minimal exertion. He denies abdominal pain, nausea or vomiting, diarrhea or constipation. Serrano catheter remains in place, as staff does not feel that he can get up and down to use a urinal. November 02: he patient says he is feeling even better today, than yesterday. He feels that he is a little less short of breath. He is very pleased that his right knee pain seems to be better, especially since the Lidoderm patch. He is wondering how long he will need antibiotics and wondering if he needs a longer term IV. Otherwise, he denies fever or chills, although he notes he always feels cold towards evening. He denies chest pain or palpitations. He does have a productive cough still. he denies abdominal pain, nausea or vomiting, diarrhea or constipation. he still has his Serrano catheter in place, and we discussed removing that, but hethinks he is still too weak to stand up frequently to use a urinal. His nurses agree with that. - Constitutional Vitals: Vital Signs Temp Pulse Resp BP Pulse Ox 98.1 F 81 18 107/65 89 L 11/02/16 09:43 11/02/16 11:17 11/02/16 11:17 11/02/16 10:01 11/02/16 11:17 Period Temp Pulse Resp BP Sys/Portillo Pulse Ox Last 24 Hr 97.5 F-98.1 F 78-102 15-22 80-133/48-80 75-100 Intake and Output 11/01/16 11/02/16 11/02/16 21:59 05:59 13:59 Intake Total 770 / 770 100 / 100 240 / 240 Output Total 975 / 975 1425 / 1425 205 / 205 Balance -205 / -205 -1325 / -1325 35 / 35 Weight 230 lb 4.8 oz Intake & Output: Intake & Output 11/01/16 11/02/16 11/02/16 21:59 05:59 13:59 Intake Total 770 / 770 100 / 100 240 / 240 Output Total 975 / 975 1425 / 1425 205 / 205 Balance -205 / -205 -1325 / -1325 35 / 35 Weight 230 lb 4.8 oz Intake: IV 500 / 500 100 / 100 Primaxin 500 mg In Sodium 100 / 100 Chloride 0.9% 100 ml @ 100 mls/hr IV Q12H [facility] Rx #:[id number] Vancomycin 1,500 mg In 500 / 500 Sodium Chloride 0.9% 500 ml @ 333.3 mls/hr IV Q24H [facility] Rx#:[id number] Oral 270 / 270 240 / 240 Output: Urine Catheter Amount 500 / 500 1425 / 1425 205 / 205 Void Amount 275 / 275 Stool 200 / 200 Other: Meal Dinner Breakfast Percent of Meal Consumed 100% 100% Feeding Ability Independent Assist with Tray Set Up # Bowel Movements 1 on exam,he is sitting up in his chair and appears quite upbeat. Neck is supple without obvious lymphadenopathy or JVD. Cardiac examshows a mostly regular rhythm. Lungs: He continues to have scattered chronic crackles and rhonchi over the entire right posterior lung matos, but no significant wheezing. Left lung is relatively clear. Abdomen is soft and nontender. Extremities: Show only about 1+ edema of his lower extremities, which is generally improved. Neurologic exam: Is grossly nonfocal. Medical - PN: Obj Da - Labs CBC & Chem 7: 11/02/16 03:45 11/02/16 03:45 Labs: Abnormal Lab Results 11/02/16 11/02/16 11/01/16 03:45 03:45 13:54 Hgb 13.4 L Hct RDW 18.4 H Lymph % (Auto) 9.5 L Lymph # 0.9 L Chloride BUN 32 H Creatinine 1.4 H Glucose 125 H Uric Acid 11.4 H Calcium Phosphorus 2.6 L Magnesium GGT 71 H Lactate Dehydrogenase 281 H Total Protein Albumin 2.8 L Albumin/Globulin Ratio 0.9 L Vancomycin Trough 27.2 H* 11/01/16 11/01/16 10/31/16 04:09 04:09 04:02 Hgb 13.1 L Hct 40.1 L RDW 18.2 H Lymph % (Auto) 11.0 L Lymph # 0.9 L Chloride 94 L BUN 34 H 32 H Creatinine 1.4 H 1.6 H Glucose 140 H 117 H Uric Acid 11.5 H 11.8 H Calcium 8.5 L Phosphorus Magnesium 1.5 L GGT 66 H 66 H Lactate Dehydrogenase 278 H 280 H Total Protein 5.8 L 5.8 L Albumin 2.8 L 2.8 L Albumin/Globulin Ratio 0.9 L 0.9 L Vancomycin Trough 10/31/16 04:02 Hgb Hct RDW 18.2 H Lymph % (Auto) 10.2 L Lymph # 0.9 L Chloride BUN Creatinine Glucose Uric Acid Calcium Phosphorus Magnesium GGT Lactate Dehydrogenase Total Protein Albumin Albumin/Globulin Ratio Vancomycin Trough November 01: -intake and output: He is -3925 mLs admission -blood cultures continue to be negative so far chest x-ray: Shows worsening signs of CHF with moderate interstitial edema throughout both lungs. X-rays now read as showing a 9 cm right apical density which is likely a loculated pleural effusion rather than a mass. October 31: Sputum culture is now identified as MRSA resistant to penicillins imipenem, Levaquin but sensitive to vancomycin, gentamicin , linezolid, rifampin, tetracycline October 30: Fungal antibodies: Pending October 28: Urinalysis: 25 leukocyte esterase, negative nitrate,s 30 g protein,50 g of glucose, 18 red blood cells -TB QuantiFERON test: negative -sputum Gram stain: A few gram-positive cocci in pairs. - Culture is growing staph aureus, with sensitivities to follow. Fungal smear negative. culture negative for fungus. -Urine culture negative so far. echocardiogram: this shows moderate concentric LVH with ejection fraction of 60% . Moderate left atrial enlargement. Severe and probably disproportionate pulmonary hypertension with moderate right atrial enlargement and raised CVP. Estimated PA systolic pressure is 80 mmHg. October 27: BNP is elevated at 7715 -MRSA screen: Positive. -Blood cultures are negative so far. -EKG showed atrial fibrillation with a rate of 110. -ABG: On 5 L OxiMax: PH 7.47, PCO2 34, PO2 65, bicarbonate 24, O2 saturation 94% CT chest: -Severe centrilobular emphysema. -fluid-filled 9 cm bulla in the right upper lobe. Also 5 x 2 cm focal consolidating infiltrate in the adjacent right upper lobe. -Atypical CHF, with pre-existing pulmonary hypertension. Moderate cardiomegaly. -mildly enlarged lymph nodes in the right hilum and right mediastinum likely benign reactive. -Small amount of ascites, new compared to 7 months ago. -Increased risk for lung cancer, consider follow-up chest CT after resolution of pneumonia and CHF. Meds: Medications Acetaminophen (Tylenol) 650 mg PO Q4-6HP PRN PRN Reason: PAIN/FEVER > 101 Acetaminophen/Codeine Phosphate (Tylenol #3) 1 tab PO Q4-6HP PRN PRN Reason: Pain Last Admin: 11/02/16 02:34 Dose: 1 tab Amlodipine Besylate (Norvasc) 2.5 mg PO DAILY [facility] Last Admin: 11/02/16 09:20 Dose: Not Given Bisacodyl (Dulcolax) 10 mg GA Q2-3DAYS PRN PRN Reason: Constipation Bumetanide (Bumex) 0.5 mg PO BIDD [facility] Last Admin: 11/02/16 09:25 Dose: 0.5 mg Clotrimazole (Mycelex Crm 1%) 1 dose TOPICAL BID [facility] Last Admin: 11/02/16 09:30 Dose: 1 dose Dextrose (Dextrose 50%) 0 ml IV UD PRN PRN Reason: Hypoglycemia Diagnostic Test (Pha) (Accu-Chek) 1 each FS ACHS [facility] Last Admin: 11/02/16 07:39 Dose: 1 each Gabapentin (Neurontin) 600 mg PO TID [facility] Last Admin: 11/02/16 09:21 Dose: 600 mg Heparin Sodium (Porcine) (Heparin) 5,000 unit SQ Q12 [facility] Last Admin: 11/02/16 09:20 Dose: 5,000 unit Hydromorphone HCl (Dilaudid) 0.5 mg IV Q2HP PRN PRN Reason: Pain Imipenem/Cilastatin Sodium 500 (mg/ Sodium Chloride) 100 mls @ 100 mls/hr IV Q12H [facility] Last Admin: 11/02/16 09:21 Dose: 100 mls/hr Vancomycin HCl 1,500 mg/ (Sodium Chloride) 500 mls @ 333.3 mls/hr IV Q24H [facility] Last Infusion: 11/01/16 21:59 Dose: Infused Insulin Glargine (Lantus) 10 unit SQ BID [facility] Last Admin: 11/02/16 09:20 Dose: 10 unit Insulin Human Lispro (Humalog) 0 unit SQ [facility] PRN Reason: Protocol Last Admin: 11/02/16 07:39 Dose: Not Given Ipratropium Ney (Atrovent) 2.5 ml NEB Q4HRT [facility] Last Admin: 11/02/16 11:13 Dose: 2.5 ml Lidocaine (Lidoderm) 1 patch TOPICAL DAILY@1600 [facility] Last Admin: 11/01/16 16:00 Dose: 1 patch Lidocaine (Lidoderm) 0 patch TOPICAL DAILY@1600 [facility] Last Admin: 11/01/16 19:56 Dose: 1 patch Loratadine (Claritin) 10 mg PO QDAY [facility] Last Admin: 11/02/16 09:26 Dose: 10 mg Magnesium Hydroxide (Milk Of Magnesia) 30 ml PO DAILYP PRN PRN Reason: Constipation Naloxone HCl (Narcan) 0.1 mg IV Q2MIN PRN PRN Reason: Opiate Reversal Nitroglycerin (Nitrostat) 0.4 mg SL Q5-15MIN PRN PRN Reason: chest pain Non-Formulary Medication (Dextran 70/Hypromellose [Artificials Tears Drops]) 1 drp OPHTHALMIC TID PRN PRN Reason: dry eyes Ondansetron HCl (Zofran) 4 mg IV Q4-6HP PRN PRN Reason: Nausea And Vomiting Pantoprazole Sodium (Protonix) 40 mg PO QAMAC [facility] Last Admin: 11/02/16 07:41 Dose: 40 mg Nebivolol Hcl [ (Bystolic] 5 Mg) 1 dose PO BID [facility] Last Admin: 11/02/16 09:18 Dose: 1 dose Bismuth Subgallate ( (Devrom) 200 Mg Tab) 2 dose PO TIDPC [facility] Last Admin: 11/02/16 09:17 Dose: 2 dose Fluticasone/Salmeterol (Advair 250-50 Diskus) 1 puff INH Q12 [facility] Last Admin: 11/02/16 09:29 Dose: 1 puff Simvastatin (Zocor) 10 mg PO HS [facility] Last Admin: 11/01/16 21:56 Dose: 10 mg Sodium Chloride (Saline Flush) 10 ml IV Q8 [facility] Last Admin: 11/02/16 05:38 Dose: 10 ml Vancomycin HCl (Vancomycin Per Pharmacy) 1 order IV UD [facility] Vitamin B Complex (Vitamin B Complex) 1 cap PO DAILY [facility] Last Admin: 11/02/16 09:26 Dose: 1 cap Medical - PN: A/P - Time Spent With Patient Total time spent is greater than 50% in coordination of care (as documented) at patient's floor/unit and/or counseling patient: - Narrative A/P Narrative: #1. Pulmonary/infectious disease. Left lung pneumonia versus mass versus abscess : Drainage not possible as per radiology. -sputum culture is now growing MRSA. This is covered by the vancomycin, so we will continue with this. Also continue imipenem, regarding risk for pseudomonas and other organisms. - Clinically he has improved. White blood cell count is improved. he also appears to be requiring less oxygen supplementation. -aFB and other cultures are still pending. -I did ask Dr. Cordero to stop in today, to comment on how long he thinks the patient will need to stay on IV antibiotics. -Echocardiogram also shows severely elevated pulmonary pressure, consistent with severe pulmonary hypertension. This probably explains why he becomes so hypoxic and dyspneic with minimal exertion. -i had a fairly prolonged discussion with the patient and his about his pulmonary hypertension, and the fact that that probably explains why he is so dyspneic with any exertion . I discussed that we will try him on low-dose Norvasc, to see if this provides any relief. -Chest CT is also worrisome for possible underlying lung cancer. Patient will need follow-up CAT scan after current problems are resolved. #2. Sepsis: due to pneumonia - resolved. #3. Cardiac. -CHF/ Cor Pulmonale: patient has an echocardiogram more consistent with right- sided heart failure, due to pulmonary hypertension. IV Lasix is discontinued. -atient did have evidence of CHF on yesterday's chest x-ray, and also had increased peripheral edema, so Bumex was resumed. Unfortunately, his blood pressure tends to run low when he uses this. Continue to titrate this dose .We will also need to decide if the Norvasc is worth using, since it also lowers his blood pressure. We were hoping it might help with signs and symptoms of pulmonary hypertension. -CAD: last stress test shows inferior lateral reversible ischemic region, not cath done as per last card note. medical management planned. NO CP. -continue pravastatin. continue nebivolol. -continue pravastatin. continue nebivolol. -atrial fibrillation. Rate controlled. Not a candidate for long-term anticoagulation, per cardiology. #4. . h/o Ca Bladder: s/p cisplatin, patient did not tolerate course, follows with urology. #5.Endocrine. DM: Accu-Cheks are ranging from 117 - 207. -resumed Lantus. continue sliding scale. -glipizide is on hold. #6. HTN: he has been relatively hypotensive lately. We are titrating meds. #7. GI. Ulcerative colitis: patient is s/p colectomy has a ileostomy in place. Continue omeprazole, for presumed GERD. #8. DVT hep sq 39. CODE STATUS:No CPR. #10. Neurologic. Neuropathy. -- continue gabapentin. #11. chronic pain, and particularly chronic knee pain. Tylenol No. 3 and Lidoderm patch were added, and do seem to be helping. #12. Renal. apparent chronic kidney disease, with creatinine stable around 1.4-1.6. Uric acid remains elevated at 11.8, but he does not have obvious gout at this time. -Magnesium Was replaced IV This will need to be monitored, if he is to resume his Bumex. Approximately 35 minutes was spent today, reviewing the patient's test results , interviewing and examining him, reviewing plan of care with staff, as well as the patient and his ,and writing orders. Medical - PN: Qual - VTE Deep Vein Thrombosis/Pulmonary Embolism Present on Admission: No
[2016-11-02] MEDS ORDERED: DEXTROSE 50% 50 ML VIAL IV PRN (11:55)
[2016-11-02] MEDS ORDERED: HYDROmorphone 2 MG/ML SYRINGE IV PRN (11:55)
[2016-11-02] MEDS ORDERED: BISACODYL 10 MG SUPP.RECT PR PRN (11:55)
[2016-11-02] MEDS ORDERED: NITROGLYCERIN 0.4 MG TAB.SUBL SL PRN (11:55)
[2016-11-02] MEDS ORDERED: HYPROMELLOSE OP PRN (11:55)
[2016-11-02] MEDS ORDERED: NALOXONE HCL 0.4 MG/ML VIAL IV PRN (11:55)
[2016-11-02] MEDS ORDERED: MAGNESIUM HYDROXIDE 30 ML ORAL.SUSP PO PRN (11:55)
[2016-11-02] MEDS ORDERED: DEXTRAN OP PRN (11:55)
[2016-11-02] MEDS ORDERED: VANCOMYCIN PER PHARMACY IV SCH (11:55)
[2016-11-02] MEDS ORDERED: ACETAMINOPHEN 325 MG TABLET PO PRN (11:55)
[2016-11-02] MEDS ORDERED: ONDANSETRON 4 MG/2 ML VIAL IV PRN (11:55)
[2016-11-02] MEDS ORDERED: VANCOMYCIN 1,500 MG in 0.9 % SODIUM CHLORIDE 500 ML IV SCH (15:00)
[2016-11-02 15:11] LABS: Vancomycin,Random 19.8 ug/ml
[2016-11-02] MEDS: LIDOCAINE PATCH TOPICAL SCH ×2 (17:12→21:17)
[2016-11-02] MEDS: BUMETANIDE 1 MG TABLET PO SCH (17:14)
[2016-11-02] MEDS ORDERED: SIMVASTATIN 10 MG TABLET PO SCH (21:00)
[2016-11-03] MEDS: IPRATROPIUM 2.5 ML AMPUL.NEB NEB SCH ×5 (03:34→23:07)
[2016-11-03] MEDS ORDERED: LIDOCAINE PATCH TOPICAL SCH ×2 (04:00→16:00)
[2016-11-03] MEDS: 0.9 % SODIUM CHLORIDE 10 ML SYRINGE IV SCH ×3 (05:08→22:08)
[2016-11-03 05:58] LABS: Mean Cell Volume 88.1 fL (80.0-100.0); Mean Corpuscular HGB Conc 31.8 g/dL (31.0-36.0); Platelet Count 197 K/mcL (140-440); RBC 4.82 M/mcL (4.50-5.90); Red Cell Distribution Width 18.4 % (11.5-14.5)
[2016-11-03 06:16] LABS: Vancomycin,Random 17.6 ug/ml
[2016-11-03 06:46] LABS: ALT/SGPT 8 U/l (0-40); Albumin 2.7 gm/dL (3.2-5.2); Albumin/Globulin Ratio 0.8 (1.0-2.3); Alkaline Phosphatase 100 U/L (39-117); Bilirubin,Direct 0.2 mg/dL (0.0-0.3); Blood Urea Nitrogen 31 mg/dl (8-23); Gamma Glutamyl Transpeptidase 70 U/L (8-61); Magnesium 1.5 mg/dL (1.6-2.5)
[2016-11-03] MEDS ORDERED: PANTOPRAZOLE 40 MG TABLET PO SCH (07:30)
[2016-11-03 07:53] LABS: Anisocytosis 1+ (NONE SEEN); Band Neutrophils % 1 % (0-10); Eosinophils % (Manual) 5 % (0-7); Lymphocytes % 5 % (15-49); Monocytes % (Manual) 12 % (1-12); Platelet Estimate NORMAL (NORMAL); RBC Morphology ABNORM (NORMAL); Segmented Neutrophils % 77 % (38-78)
[2016-11-03] MEDS: INSULIN LISPRO 1 UNIT/0.01 ML UNIT SQ SCH ×3 (08:47→22:05)
[2016-11-03] MEDS: GABAPENTIN 300 MG CAPSULE PO SCH ×3 (08:48→22:05)
[2016-11-03] MEDS: BUMETANIDE 1 MG TABLET PO SCH (08:48)
[2016-11-03] MEDS: BISMUTH SUBGALLATE PO SCH ×2 (08:49→12:18)
[2016-11-03] MEDS: NEBIVOLOL HCL 5 MG PO SCH ×2 (08:50→22:06)
[2016-11-03] MEDS: HEPARIN 5,000 UNIT/ML VIAL SQ SCH ×2 (08:55→22:05)
[2016-11-03] MEDS: IMIPENEM/CILASTATIN SODIUM 500 MG in 0.9 % SODIUM CHLORIDE 100 ML IV SCH ×2 (08:56→22:04)
[2016-11-03] MEDS: FLUTICASONE/SALMETEROL 250/50 INHALER #14 INH SCH ×2 (08:57→22:05)
[2016-11-03] MEDS ORDERED: amLODIPine 5 MG TABLET PO SCH (09:00)
[2016-11-03] MEDS ORDERED: LORATADINE 10 MG TABLET PO SCH (09:00)
[2016-11-03] MEDS ORDERED: VITAMIN B COMPLEX 1 CAPSULE PO SCH (09:00)
[2016-11-03] MEDS ORDERED: VANCOMYCIN 1,000 MG in 0.9 % SODIUM CHLORIDE 250 ML IV ONE (10:00)
[2016-11-03] MEDS: CLOTRIMAZOLE CRM 1% 1 DOSE TUBE TOPICAL SCH ×2 (10:04→22:06)
[2016-11-03] MEDS: INSULIN GLARGINE, HUMAN 1 UNIT/0.01 ML SQ SCH ×2 (10:04→22:05)
--- NOTE | 2016-11-03 10:14 | Internal Med Progress Note ---
Medical - PN: Subj Patient information: Note initiated : 11/03/16 at 10:06 am Service Date, if different from initiated Date: [] Patient: Partha Samuels 81 y/o M admitted on 10/27/16 for SOB/Lt Lung Mass, COPD , PNA, Sepsis, CHF. Chief Complaint: [] Interval history: october 27, 2016:History of present illness: Mr. Samuels is a 81 year old male with multiple medical issues. presented to the ER with shortness of breath, increased generalized pain, and subjective sensation of pain and fever. The patient notes that he was doing well approximately upto 2 weeks ago, and since then he has been having gradual decline in his condition. He has intermittent bouts of shortness of breath. He admits to having cough with whitish greyish sputum, fever with temp of 99, chills and intermittent rigors. The patient is a poor historian and had significant tangentiality to his history. He notes that some times he gets sob while passing urine. but denies any burning urine, foul smelling urine or increased frequency of urination. He denies any abdominal pain, nausea and or vomiting. He has a ileostomy in place, but denies any change in bowel habits. The patient in the ER was noted to be tachycardic and tachypneic, the patient had elevated wbc count, elevated lactic acid, elevated gap, pt was at baseline renal function, had elevated BNP. CXR was reported as possible abscess in the right upper lobe. CT scan of the Chest shows a cavitary mass in the right upper lobe (night hawk read). Patient as admitted to the hospital with diagnosis of PNA, new onset mass (squamous cell Ca) . October 28: Patient seen examined, no acute overnight events, remains of 5L oxygen. He denies any new concerns. I reviewed the CT findings with him of possible mass vs abscess. I reviewed the CT with our radiologist who feels that this is abscess rather than a tumor. Night hawk read mentions likely malignant tumor. The radiologist does not feel that the mass/ abscess can be drained given severe empysema and risk of coverting abscess to empyema. patient remains on broad spectrum ABX vanco and imipenum. The patient remains of lasix for chf and cor pulmonale. Hemodynamically stable. I have consulted pulmonary for their guidance. Plan to sent fungal culture and stain, also afb and quantiferon which has been ordered. Pt placed in air borne isolation. October 29: This patient was admitted with signs and symptoms of pneumonia, but an unusual appearing infiltrate on his chest x-ray, suggesting the possibility of atypical pneumonia, versus abscess, versus lung cancer. He has known severe COPD/ emphysema. today,he notes his shortness of breath is much improved over admission. He says he has a pretty minimal, nonproductive, cough. He still feels chilled occasionally, but is unaware fever. He continues to have mild dyspnea on exertion, which he describes not only shortness of breath but as a feeling that his legs will collapse, if he tries to walk anywhere. He and his report that that sensation and weakness have been going on for about a week or so. However, she notes he really has not done that well, strength almonte, since he was discharged from rehabilitation, last year. He otherwise denies headaches or dizziness, sore throat, chest pain or palpitations, abdominal pain, nausea or vomiting, diarrhea or constipation, dysuria. -he continues to require high flow oxygen to maintain saturations above 90%. -He continues with elevated white blood cell countall which is essentially unchanged. -Nurses were concerned about giving him insulin last night, as blood sugars are generally ranging less than 200. He is on sliding scale insulin coverage. October 30: today, patient says he thinks he is feeling a little less short of breath with exertion although he does spend most of his time either in bed or in the chair. He continues to have a productive cough,but says he really doesn' t feel especially short of breath at rest. He tells me that last night while transferring from the chair back to the bed he suddenly got extremely weak, and essentially collapsed onto the bed. His nurse says that he seemed to have a staring spell that lasted a few seconds. His says he has episodes of this at home fairly often, and will sometimes changes color and start to look a little blue. He does appear to desaturate dramatically with any activity, and this is probably happening at home as well. He usesO2 2 L continuous at home, and his says that she has been reluctant to turn that up, for fear of causing CO2 retention. otherwise, he denies fever or chills sore throat, chest pain or palpitations, abdominal pain, nausea or vomiting, diarrhea or constipation, dysuria. October 31: - today, the patient notes he thinks he is having a little bit less shortness of breath with exertion compared to a couple of days ago. He is continuing to cough up phlegm, and says his chest feels clearer after he is able to cough up sputum. he denies fever or chills, or significant wheezing. -sputum culture today is growing MRSA. -He tells me today, that while he hurts all over, he is having quite a bit of pain in the right knee. He says when he stands up, the knee pain goes up significantly, and is interfering with his attempts at ambulation. -otherwise, he denies headaches or dizziness, chest pain or palpitations, abdominal pain, nausea or vomiting, diarrhea or constipation, dysuria. November 01: -the patient actually is feeling quite a bit better today. He still has a cough productive ofa lot of sputum, but is generally feeling less short of breath. Physical therapy said he did seem stronger today, when trying to transfer from bed to chair. we had him use an oxi-mask yesterday and last night, and that did a better job at maintaining his O2 saturations but he does complain that it makes him feel quite claustrophobic, so did go back to the nasal cannula this morning. Even while talking with me in the room with a nasal cannula on he will drop his O2 saturations into the 70s, and fingernails will turn blue. -I did hold his oral bumex, so that we could add Norvasc, to try to help with pulmonary hypertension issues. Blood pressures are running borderline low but he is of course also having some increased edema in his legs and scrotum. -right knee pain is a bit better today, using both Tylenol with Codeine as well as the Lidoderm patch. patient otherwise denies fever or chills, headaches or dizziness, chest pain He continues to have dyspnea with minimal exertion. He denies abdominal pain, nausea or vomiting, diarrhea or constipation. Serrano catheter remains in place, as staff does not feel that he can get up and down to use a urinal. November 02: he patient says he is feeling even better today, than yesterday. He feels that he is a little less short of breath. He is very pleased that his right knee pain seems to be better, especially since the Lidoderm patch. He is wondering how long he will need antibiotics and wondering if he needs a longer term IV. Otherwise, he denies fever or chills, although he notes he always feels cold towards evening. He denies chest pain or palpitations. He does have a productive cough still. he denies abdominal pain, nausea or vomiting, diarrhea or constipation. he still has his Serrano catheter in place, and we discussed removing that, but hethinks he is still too weak to stand up frequently to use a urinal. His nurses agree with that. 11/03- patient feeling a lot better. Sitting on chair with his at bedside. No overnight fever chills or concerns per staff. White count down to 7.8.stable hemodynamics and vitals. creatinine 1.5. continue antibiotic coverage - Constitutional Vitals: Vital Signs Temp Pulse Resp BP Pulse Ox 98.0 F 96 H 19 130/76 87 L 11/03/16 08:00 11/03/16 08:28 11/03/16 08:28 11/03/16 08:00 11/03/16 08:28 Period Temp Pulse Resp BP Sys/Portillo Pulse Ox Last 24 Hr 97.8 F-98.0 F 81-98 13- 93-130/60-76 87-98 Intake and Output 11/02/16 11/03/16 11/03/16 21:59 05:59 13:59 Intake Total 100 / 100 Output Total 1575 / 1575 1160 / 1160 Balance -1575 / -1575 -1060 / -1060 Weight 223 lb 6.4 oz Intake & Output: Intake & Output 11/02/16 11/03/16 11/03/16 21:59 05:59 13:59 Intake Total 100 / 100 Output Total 1575 / 1575 1160 / 1160 Balance -1575 / -1575 -1060 / -1060 Weight 223 lb 6.4 oz Intake: IV 100 / 100 Primaxin 500 mg In Sodium 100 / 100 Chloride 0.9% 100 ml @ 100 mls/hr IV Q12H [facility] Rx #:[id number] Output: Urine Catheter Amount 1400 / 1400 960 / 960 Stool 175 / 175 200 / 200 General appearance: cooperative, no acute distress Exam: alert oriented nonlabored breathing Nondistended abdomen, ileostomy No anxiety Medical - PN: Obj Da - Labs CBC & Chem 7: 11/03/16 03:58 11/03/16 03:58 Labs: Abnormal Lab Results 11/03/16 11/03/16 11/02/16 03:58 03:58 03:45 Hgb Hct RDW 18.4 H Lymph % (Auto) Lymph # Lymphocytes % 5 L RBC Morphology Abnorm A Polychromasia Few A Anisocytosis 1+ A RBC Fragments Few A Chloride 95 L BUN 31 H 32 H Creatinine 1.5 H 1.4 H Glucose 125 H Uric Acid 12.0 H 11.4 H Phosphorus 2.6 L Magnesium 1.5 L GGT 70 H 71 H Lactate Dehydrogenase 304 H 281 H Total Protein Albumin 2.7 L 2.8 L Albumin/Globulin Ratio 0.8 L 0.9 L Vancomycin Trough 11/02/16 11/01/16 11/01/16 03:45 13:54 04:09 Hgb 13.4 L Hct RDW 18.4 H Lymph % (Auto) 9.5 L Lymph # 0.9 L Lymphocytes % RBC Morphology Polychromasia Anisocytosis RBC Fragments Chloride BUN 34 H Creatinine 1.4 H Glucose 140 H Uric Acid 11.5 H Phosphorus Magnesium GGT 66 H Lactate Dehydrogenase 278 H Total Protein 5.8 L Albumin 2.8 L Albumin/Globulin Ratio 0.9 L Vancomycin Trough 27.2 H* 11/01/16 04:09 Hgb 13.1 L Hct 40.1 L RDW 18.2 H Lymph % (Auto) 11.0 L Lymph # 0.9 L Lymphocytes % RBC Morphology Polychromasia Anisocytosis RBC Fragments Chloride BUN Creatinine Glucose Uric Acid Phosphorus Magnesium GGT Lactate Dehydrogenase Total Protein Albumin Albumin/Globulin Ratio Vancomycin Trough Meds: Medications Acetaminophen (Tylenol) 650 mg PO Q4-6HP PRN PRN Reason: PAIN/FEVER > 101 Acetaminophen/Codeine Phosphate (Tylenol #3) 1 tab PO Q4-6HP PRN PRN Reason: Pain Last Admin: 11/02/16 21:19 Dose: 1 tab Amlodipine Besylate (Norvasc) 2.5 mg PO DAILY PAULETTE Last Admin: 11/03/16 08:48 Dose: 2.5 mg Bisacodyl (Dulcolax) 10 mg NJ Q2-3DAYS PRN PRN Reason: Constipation Bumetanide (Bumex) 0.5 mg PO BIDD [facility] Last Admin: 11/03/16 08:48 Dose: 0.5 mg Clotrimazole (Mycelex Crm 1%) 1 dose TOPICAL BID [facility] Last Admin: 11/03/16 10:04 Dose: 1 dose Dextrose (Dextrose 50%) 0 ml IV UD PRN PRN Reason: Hypoglycemia Diagnostic Test (Pha) (Accu-Chek) 1 each FS ACHS [facility] Last Admin: 11/03/16 08:47 Dose: 1 each Gabapentin (Neurontin) 600 mg PO TID [facility] Last Admin: 11/03/16 08:48 Dose: 600 mg Heparin Sodium (Porcine) (Heparin) 5,000 unit SQ Q12 [facility] Last Admin: 11/03/16 08:55 Dose: 5,000 unit Hydromorphone HCl (Dilaudid) 0.5 mg IV Q2HP PRN PRN Reason: Pain Imipenem/Cilastatin Sodium 500 (mg/ Sodium Chloride) 100 mls @ 100 mls/hr IV Q12H [facility] Last Admin: 11/03/16 08:56 Dose: 100 mls/hr Vancomycin HCl 1,000 mg/ (Sodium Chloride) 250 mls @ 250 mls/hr IV ONCE ONE Stop: 11/03/16 10:59 Insulin Glargine (Lantus) 10 unit SQ BID [facility] Last Admin: 11/03/16 10:04 Dose: 10 unit Insulin Human Lispro (Humalog) 0 unit SQ [facility] PRN Reason: Protocol Last Admin: 11/03/16 08:47 Dose: Not Given Ipratropium Sultan (Atrovent) 2.5 ml NEB Q4HRT [facility] Last Admin: 11/03/16 07:51 Dose: 2.5 ml Lidocaine (Lidoderm) 1 patch TOPICAL DAILY@1600 [facility] Last Admin: 11/02/16 21:17 Dose: 1 patch Lidocaine (Lidoderm) 0 patch TOPICAL DAILY@0400 [facility] Last Admin: 11/03/16 04:51 Dose: 1 patch Loratadine (Claritin) 10 mg PO QDAY [facility] Last Admin: 11/03/16 08:49 Dose: 10 mg Magnesium Hydroxide (Milk Of Magnesia) 30 ml PO DAILYP PRN PRN Reason: Constipation Naloxone HCl (Narcan) 0.1 mg IV Q2MIN PRN PRN Reason: Opiate Reversal Nitroglycerin (Nitrostat) 0.4 mg SL Q5-15MIN PRN PRN Reason: chest pain Ondansetron HCl (Zofran) 4 mg IV Q4-6HP PRN PRN Reason: Nausea And Vomiting Pantoprazole Sodium (Protonix) 40 mg PO QAMAC [facility] Last Admin: 11/03/16 08:47 Dose: 40 mg Dextran 70/Hypromellose [ Artificials Tears Drops] 1 dose OP TIDP PRN PRN Reason: dry eyes Nebivolol Hcl [ (Bystolic] 5 Mg) 1 dose PO BID [facility] Last Admin: 11/03/16 08:50 Dose: 1 dose Bismuth Subgallate ( (Devrom) 200 Mg Tab) 2 dose PO TIDPC [facility] Last Admin: 11/03/16 08:49 Dose: 2 dose Fluticasone/Salmeterol (Advair 250-50 Diskus) 1 puff INH Q12 [facility] Last Admin: 11/03/16 08:57 Dose: 1 dose Simvastatin (Zocor) 10 mg PO HS [facility] Last Admin: 11/02/16 21:19 Dose: 10 mg Sodium Chloride (Saline Flush) 10 ml IV Q8 [facility] Last Admin: 11/03/16 05:08 Dose: 10 ml Vancomycin HCl (Vancomycin Per Pharmacy) 1 order IV UD [facility] Vitamin B Complex (Vitamin B Complex) 1 cap PO DAILY [facility] Last Admin: 11/03/16 08:47 Dose: 1 cap Medical - PN: A/P - Time Spent With Patient Total time spent is greater than 50% in coordination of care (as documented) at patient's floor/unit and/or counseling patient: 25 - 35 minutes - Narrative A/P Narrative: * left lower lobe pneumonia- question of abscess. Responding well to antibiotic coverage. MRSA on sputum. Continue vancomycin/imipenem discontinued after initial pseudomonas coverage. pulmonology consult. follow- up interval CT scan to rule out lung cancer(hest CT suspicious for lung cancer) * sepsis secondary pneumonia improved. White count down to 7000 * Dyspnea on exertion secondary to severe pulmonary artery hypertension on echo. on calcium channel sharmila * decompensated heart failure on diuretics. * History of CAD: last stress test shows inferior lateral reversible ischemic region, not cath done as per last card note. continue pravastatin, nebivolol. * A. fib rate controlled. Not a candidate for long-term anticoagulation, per cardiology. * DM type [id number] * Ulcerative colitis: patient is s/p colectomy has a ileostomy in place. * GERD on PPI * subcutaneous heparin for prophylaxis * Neuropathy- continue gabapentin * CK D-creatinine around baseline 1.5 plan * Continue vancomycin * PICC line * Initiate transfer to long-term facility for antibiotic coverage * outpatient Interval CT Medical - PN: Qual - VTE Deep Vein Thrombosis/Pulmonary Embolism Present on Admission: No
[2016-11-03] MEDS: ACETAMINOPHEN W/CODEINE #3 1 TABLET PO PRN (10:19)
--- NOTE | 2016-11-03 14:17 | XRay Report ---
HISTORY: Reason for Exam:PICC PLACEMENT FINDINGS: The PICC line has been inserted through the left arm. The tip is located beneath the head of the left clavicle in the general location of the proximal to midportion of the subclavian vein. Patient has severe pulmonary fibrosis. There is also moderate pleural thickening over the right apex. The heart is mildly enlarged. IMPRESSION: PICC line in the region of the left subclavian vein. ICU nurse was called with results Interpreted and Authenticated by: Charlie Ruiz 11/03/16
--- NOTE | 2016-11-03 14:40 | XRay Report ---
HISTORY: Reason for Exam:Picc position FINDINGS: The PICC line has been advanced and is now in the superior vena cava, overlying the right mainstem bronchus. There is no pneumothorax or pleural effusion. The widespread infiltrates have remained stable. IMPRESSION: Well-positioned PICC line in the superior vena cava. ICU nurse was called with the results Interpreted and Authenticated by: Charlie Ruiz 11/03/16
[2016-11-03] MEDS ORDERED: MAGNESIUM HYDROXIDE 30 ML ORAL.SUSP PO PRN ×2 (16:35→19:14)
[2016-11-03] MEDS ORDERED: ACETAMINOPHEN W/CODEINE #3 1 TABLET PO PRN (16:35)
[2016-11-03] MEDS ORDERED: HYPROMELLOSE OP PRN ×2 (16:35→19:14)
[2016-11-03] MEDS ORDERED: ONDANSETRON 4 MG/2 ML VIAL IV PRN ×2 (16:35→19:14)
[2016-11-03] MEDS ORDERED: DEXTROSE 50% 50 ML VIAL IV PRN ×2 (16:35→19:14)
[2016-11-03] MEDS ORDERED: BISACODYL 10 MG SUPP.RECT PR PRN ×2 (16:35→19:14)
[2016-11-03] MEDS ORDERED: NALOXONE HCL 0.4 MG/ML VIAL IV PRN ×2 (16:35→19:14)
[2016-11-03] MEDS ORDERED: VANCOMYCIN PER PHARMACY IV SCH ×2 (16:35→19:14)
[2016-11-03] MEDS ORDERED: DEXTRAN OP PRN ×2 (16:35→19:14)
[2016-11-03] MEDS ORDERED: HYDROmorphone 2 MG/ML SYRINGE IV PRN (16:35)
[2016-11-03] MEDS ORDERED: NITROGLYCERIN 0.4 MG TAB.SUBL SL PRN ×2 (16:35→19:14)
[2016-11-03] MEDS ORDERED: ACETAMINOPHEN 325 MG TABLET PO PRN ×2 (16:35→19:14)
[2016-11-03] MEDS ORDERED: INSULIN LISPRO 1 UNIT/0.01 ML UNIT SQ SCH (17:00)
[2016-11-03] MEDS ORDERED: BISMUTH SUBGALLATE PO SCH (18:00)
[2016-11-03] MEDS ORDERED: IPRATROPIUM 2.5 ML AMPUL.NEB NEB SCH (19:00)
[2016-11-03] MEDS ORDERED: ACETAMINOPHEN 650 MG/65 ML BOTTLE IV PRN (19:29)
[2016-11-03] MEDS: ACETAMINOPHEN 1,000 MG/100 ML BOTTLE IV PRN (19:45)
[2016-11-03 20:14] LABS: Appearance,Urine HAZY; Bacteria,Urine 0 /hpf (0); Bilirubin,Urine NEG (NEG); Color,Urine DARK YELLOW; Glucose,Urine (UA) 50 mg/dL (NEG); Leukocyte Esterase,Urine NEG /uL (NEG); Mucus,Urine FEW /hpf (0); Nitrate,Urine NEG (NEG); Protein,Urine 30 mg/dL (NEG); Specific Gravity,Urine 1.011 (1.000-1.035); Urine Blood >=1.0 mg/dL (<0.03); Urine RBC > 182 /hpf (0-1); Urine Squamous Epithelial Cell 0 /hpf (0-4); Urine WBC 11 /hpf (0-4); Urobilinogen,Urine NEG (NEG)
[2016-11-03] MEDS ORDERED: GABAPENTIN 300 MG CAPSULE PO SCH (21:00)
[2016-11-03] MEDS ORDERED: NEBIVOLOL HCL 5 MG PO SCH (21:00)
[2016-11-03] MEDS ORDERED: FLUTICASONE/SALMETEROL 250/50 INHALER #14 INH SCH (21:00)
[2016-11-03] MEDS ORDERED: CLOTRIMAZOLE CRM 1% 1 DOSE TUBE TOPICAL SCH (21:00)
[2016-11-03] MEDS ORDERED: INSULIN GLARGINE, HUMAN 1 UNIT/0.01 ML SQ SCH (21:00)
[2016-11-03] MEDS ORDERED: SIMVASTATIN 10 MG TABLET PO SCH (21:00)
[2016-11-03] MEDS ORDERED: HEPARIN 5,000 UNIT/ML VIAL SQ SCH (21:00)
[2016-11-03] MEDS ORDERED: IMIPENEM/CILASTATIN SODIUM 500 MG in 0.9 % SODIUM CHLORIDE 100 ML IV SCH (21:00)
[2016-11-03] MEDS ORDERED: NOREPINEPHRINE BITARTRATE 4 MG/4 ML AMPUL IV ONE (21:15)
[2016-11-03] MEDS ORDERED: 0.9 % SODIUM CHLORIDE 1,000 ML IV ONE (21:31)
[2016-11-03] MEDS: NOREPINEPHRINE BITARTRATE 16 MG in 0.9 % SODIUM CHLORIDE 234 ML IV SCH (21:47)
[2016-11-03] MEDS: 0.9 % SODIUM CHLORIDE 250 ML IV SCH (21:50)
[2016-11-03] MEDS ORDERED: 0.9 % SODIUM CHLORIDE 10 ML SYRINGE IV SCH (22:00)
[2016-11-03] MEDS: SIMVASTATIN 10 MG TABLET PO SCH (22:06)
[2016-11-03] MEDS: 0.9 % SODIUM CHLORIDE 1,000 ML IV SCH (22:52)
[2016-11-04] MEDS: IPRATROPIUM 2.5 ML AMPUL.NEB NEB SCH ×6 (03:24→23:14)
[2016-11-04] MEDS ORDERED: LIDOCAINE PATCH TOPICAL SCH (04:00)
[2016-11-04] MEDS: LIDOCAINE PATCH TOPICAL SCH ×2 (04:01→14:39)
[2016-11-04] MEDS: 0.9 % SODIUM CHLORIDE 10 ML SYRINGE IV SCH ×3 (05:41→21:23)
[2016-11-04 06:09] LABS: Mean Cell Volume 87.7 fL (80.0-100.0); Mean Corpuscular HGB Conc 31.6 g/dL (31.0-36.0); Mean Corpuscular Hemoglobin 27.7 pg (26.0-34.0); Platelet Count 218 K/mcL (140-440); RBC 5.26 M/mcL (4.50-5.90); Red Cell Distribution Width 18.4 % (11.5-14.5)
[2016-11-04 06:57] LABS: ALT/SGPT 9 U/l (0-40); Albumin 3.1 gm/dL (3.2-5.2); Albumin/Globulin Ratio 0.9 (1.0-2.3); Alkaline Phosphatase 123 U/L (39-117); Bilirubin,Direct 0.3 mg/dL (0.0-0.3); Blood Urea Nitrogen 32 mg/dl (8-23); Gamma Glutamyl Transpeptidase 87 U/L (8-61); Magnesium 1.5 mg/dL (1.6-2.5); Uric Acid 11.7 mg/dL (2.5-8.0)
[2016-11-04] MEDS ORDERED: PANTOPRAZOLE 40 MG TABLET PO SCH (07:30)
--- NOTE | 2016-11-04 07:59 | XRay Report ---
HISTORY: Reason for Exam:hypoxia , pneumonia, right lung mass, COPD, sepsis and congestive heart failure FINDINGS: There are diffuse infiltrates throughout both lungs. There is moderately dense consolidation superiorly and laterally in the right upper lobe. There are bowel laterally in the right lower lobe and left upper lobe. The heart is mildly enlarged. The pulmonary vessels are of scattered by the infiltrates. There is a PICC line placed to the left arm into the superior vena cava. No pneumothorax is present. There has been no significant change since 14:16 on the same date. IMPRESSION: Stable bilateral infiltrates which may be a combination of pneumonia and pulmonary edema Interpreted and Authenticated by: Charlie Ruiz 11/04/16
[2016-11-04] MEDS ORDERED: BUMETANIDE 1 MG TABLET PO SCH (08:00)
[2016-11-04 08:08] LABS: Anisocytosis 1+ (NONE SEEN); Band Neutrophils % 6 % (0-10); Eosinophils % (Manual) 2 % (0-7); Lymphocytes % 4 % (15-49); Monocytes % (Manual) 7 % (1-12); Platelet Estimate NORMAL (NORMAL); RBC Morphology ABNORM (NORMAL); Segmented Neutrophils % 80 % (38-78)
[2016-11-04] MEDS: BISMUTH SUBGALLATE PO SCH ×3 (08:27→17:08)
[2016-11-04] MEDS: BUMETANIDE 1 MG TABLET PO SCH ×2 (08:28→16:11)
[2016-11-04] MEDS: VITAMIN B COMPLEX 1 CAPSULE PO SCH (08:28)
[2016-11-04] MEDS: LORATADINE 10 MG TABLET PO SCH (08:28)
[2016-11-04] MEDS: NEBIVOLOL HCL 5 MG PO SCH ×2 (08:29→20:23)
[2016-11-04] MEDS: GABAPENTIN 300 MG CAPSULE PO SCH ×3 (08:29→20:22)
[2016-11-04] MEDS: INSULIN LISPRO 1 UNIT/0.01 ML UNIT SQ SCH ×4 (08:30→20:21)
[2016-11-04] MEDS: PANTOPRAZOLE 40 MG TABLET PO SCH (08:30)
[2016-11-04] MEDS: HEPARIN 5,000 UNIT/ML VIAL SQ SCH ×2 (08:31→20:21)
[2016-11-04] MEDS: INSULIN GLARGINE, HUMAN 1 UNIT/0.01 ML SQ SCH ×2 (08:31→20:22)
[2016-11-04] MEDS: FLUTICASONE/SALMETEROL 250/50 INHALER #14 INH SCH ×2 (08:33→21:22)
[2016-11-04] MEDS: CLOTRIMAZOLE CRM 1% 1 DOSE TUBE TOPICAL SCH ×2 (08:34→20:22)
[2016-11-04] MEDS: IMIPENEM/CILASTATIN SODIUM 500 MG in 0.9 % SODIUM CHLORIDE 100 ML IV SCH ×2 (08:37→20:23)
[2016-11-04] MEDS ORDERED: VITAMIN B COMPLEX 1 CAPSULE PO SCH (09:00)
[2016-11-04] MEDS ORDERED: amLODIPine 5 MG TABLET PO SCH (09:00)
[2016-11-04] MEDS ORDERED: LORATADINE 10 MG TABLET PO SCH (09:00)
--- NOTE | 2016-11-04 09:36 | Internal Med Progress Note ---
Medical - PN: Subj Patient information: Note initiated : 11/04/16 at 9:34 am Service Date, if different from initiated Date: [] Patient: Partha Samuels 81 y/o M admitted on 10/27/16 for SOB/Lt Lung Mass, COPD , PNA, Sepsis, CHF. Chief Complaint: [] Interval history: october 27, 2016:History of present illness: Mr. Samuels is a 81 year old male with multiple medical issues. presented to the ER with shortness of breath, increased generalized pain, and subjective sensation of pain and fever. The patient notes that he was doing well approximately upto 2 weeks ago, and since then he has been having gradual decline in his condition. He has intermittent bouts of shortness of breath. He admits to having cough with whitish greyish sputum, fever with temp of 99, chills and intermittent rigors. The patient is a poor historian and had significant tangentiality to his history. He notes that some times he gets sob while passing urine. but denies any burning urine, foul smelling urine or increased frequency of urination. He denies any abdominal pain, nausea and or vomiting. He has a ileostomy in place, but denies any change in bowel habits. The patient in the ER was noted to be tachycardic and tachypneic, the patient had elevated wbc count, elevated lactic acid, elevated gap, pt was at baseline renal function, had elevated BNP. CXR was reported as possible abscess in the right upper lobe. CT scan of the Chest shows a cavitary mass in the right upper lobe (night hawk read). Patient as admitted to the hospital with diagnosis of PNA, new onset mass (squamous cell Ca) . October 28: Patient seen examined, no acute overnight events, remains of 5L oxygen. He denies any new concerns. I reviewed the CT findings with him of possible mass vs abscess. I reviewed the CT with our radiologist who feels that this is abscess rather than a tumor. Night hawk read mentions likely malignant tumor. The radiologist does not feel that the mass/ abscess can be drained given severe empysema and risk of coverting abscess to empyema. patient remains on broad spectrum ABX vanco and imipenum. The patient remains of lasix for chf and cor pulmonale. Hemodynamically stable. I have consulted pulmonary for their guidance. Plan to sent fungal culture and stain, also afb and quantiferon which has been ordered. Pt placed in air borne isolation. October 29: This patient was admitted with signs and symptoms of pneumonia, but an unusual appearing infiltrate on his chest x-ray, suggesting the possibility of atypical pneumonia, versus abscess, versus lung cancer. He has known severe COPD/ emphysema. today,he notes his shortness of breath is much improved over admission. He says he has a pretty minimal, nonproductive, cough. He still feels chilled occasionally, but is unaware fever. He continues to have mild dyspnea on exertion, which he describes not only shortness of breath but as a feeling that his legs will collapse, if he tries to walk anywhere. He and his report that that sensation and weakness have been going on for about a week or so. However, she notes he really has not done that well, strength almonte, since he was discharged from rehabilitation, last year. He otherwise denies headaches or dizziness, sore throat, chest pain or palpitations, abdominal pain, nausea or vomiting, diarrhea or constipation, dysuria. -he continues to require high flow oxygen to maintain saturations above 90%. -He continues with elevated white blood cell countall which is essentially unchanged. -Nurses were concerned about giving him insulin last night, as blood sugars are generally ranging less than 200. He is on sliding scale insulin coverage. October 30: today, patient says he thinks he is feeling a little less short of breath with exertion although he does spend most of his time either in bed or in the chair. He continues to have a productive cough,but says he really doesn' t feel especially short of breath at rest. He tells me that last night while transferring from the chair back to the bed he suddenly got extremely weak, and essentially collapsed onto the bed. His nurse says that he seemed to have a staring spell that lasted a few seconds. His says he has episodes of this at home fairly often, and will sometimes changes color and start to look a little blue. He does appear to desaturate dramatically with any activity, and this is probably happening at home as well. He usesO2 2 L continuous at home, and his says that she has been reluctant to turn that up, for fear of causing CO2 retention. otherwise, he denies fever or chills sore throat, chest pain or palpitations, abdominal pain, nausea or vomiting, diarrhea or constipation, dysuria. October 31: - today, the patient notes he thinks he is having a little bit less shortness of breath with exertion compared to a couple of days ago. He is continuing to cough up phlegm, and says his chest feels clearer after he is able to cough up sputum. he denies fever or chills, or significant wheezing. -sputum culture today is growing MRSA. -He tells me today, that while he hurts all over, he is having quite a bit of pain in the right knee. He says when he stands up, the knee pain goes up significantly, and is interfering with his attempts at ambulation. -otherwise, he denies headaches or dizziness, chest pain or palpitations, abdominal pain, nausea or vomiting, diarrhea or constipation, dysuria. November 01: -the patient actually is feeling quite a bit better today. He still has a cough productive ofa lot of sputum, but is generally feeling less short of breath. Physical therapy said he did seem stronger today, when trying to transfer from bed to chair. we had him use an oxi-mask yesterday and last night, and that did a better job at maintaining his O2 saturations but he does complain that it makes him feel quite claustrophobic, so did go back to the nasal cannula this morning. Even while talking with me in the room with a nasal cannula on he will drop his O2 saturations into the 70s, and fingernails will turn blue. -I did hold his oral bumex, so that we could add Norvasc, to try to help with pulmonary hypertension issues. Blood pressures are running borderline low but he is of course also having some increased edema in his legs and scrotum. -right knee pain is a bit better today, using both Tylenol with Codeine as well as the Lidoderm patch. patient otherwise denies fever or chills, headaches or dizziness, chest pain He continues to have dyspnea with minimal exertion. He denies abdominal pain, nausea or vomiting, diarrhea or constipation. Serrano catheter remains in place, as staff does not feel that he can get up and down to use a urinal. November 02: he patient says he is feeling even better today, than yesterday. He feels that he is a little less short of breath. He is very pleased that his right knee pain seems to be better, especially since the Lidoderm patch. He is wondering how long he will need antibiotics and wondering if he needs a longer term IV. Otherwise, he denies fever or chills, although he notes he always feels cold towards evening. He denies chest pain or palpitations. He does have a productive cough still. he denies abdominal pain, nausea or vomiting, diarrhea or constipation. he still has his Serrano catheter in place, and we discussed removing that, but hethinks he is still too weak to stand up frequently to use a urinal. His nurses agree with that. 11/03- patient feeling a lot better. Sitting on chair with his at bedside. No overnight fever chills or concerns per staff. White count down to 7.8.stable hemodynamics and vitals. creatinine 1.5. continue antibiotic coverage 18:00 Patient was noticed significantly short of breath along with shaking chills. Stat lactic acid 3.9. Blood gas PaO2 68 on 15 L oxygen. Transfer to ICU in light of hypoxic respiratory failure. Stat chest x-ray. patient and septic shock. On pressors. X-ray shows bilateral infiltrates likely aspiration pneumonia. Patient is a no code 11/04- on 10 L oxygen. Profound hypoxic respiratory failure. aspiration pneumonia. Continue broad antibiotic coverage. On pressors. Map at goal. Critically ill. [place] score 18. High risk mortality. informed about poor prognosis. If patient fails to respond to conventional treatment would contemplate comfort care measures. Continue ICU care - Constitutional Vitals: Vital Signs Temp Pulse Resp BP Pulse Ox 100.2 F H 89 16 109/58 92 11/04/16 09:26 11/04/16 09:26 11/04/16 09:26 11/04/16 09:00 11/04/16 09:26 Period Temp Pulse Resp BP Sys/[place] Pulse Ox Last 24 Hr 98.8 F-103 F 78-110 14-23 78-149/40-119 84-100 Intake and Output 11/03/16 11/04/16 11/04/16 21:59 05:59 13:59 Intake Total 350 / 350 1100 / 1100 Output Total 1000 / 1000 Balance 350 / 350 100 / 100 Weight 224 lb 8 oz Intake & Output: Intake & Output 11/03/16 11/04/16 11/04/16 21:59 05:59 13:59 Intake Total 350 / 350 1100 / 1100 Output Total 1000 / 1000 Balance 350 / 350 100 / 100 Weight 224 lb 8 oz Intake: IV 350 / 350 1100 / 1100 Sodium Chloride 0.9% 1, 1000 / 1000 000 ml @ Wide Open IV BOLUS ONE Rx#:[id number] Primaxin 500 mg In Sodium 100 / 100 Chloride 0.9% 100 ml @ 100 mls/hr IV Q12H [facility] Rx #:[id number] Output: Urine Catheter Amount 750 / 750 Stool 250 / 250 General appearance: moderate distress (SOB) Exam: labored breathing Mild anxiety Foleys draining dark urine no lymphedema Medical - PN: Obj Da - Labs CBC & Chem 7: 11/04/16 04:30 11/04/16 04:30 Labs: Abnormal Lab Results 11/04/16 11/04/16 11/03/16 04:30 04:30 20:05 WBC 14.3 H Hgb RDW 18.4 H Lymph % (Auto) Lymph # Seg Neutrophils % 80 H Lymphocytes % 4 L RBC Morphology Abnorm A Polychromasia Anisocytosis 1+ A RBC Fragments VBG Lactic Acid 2.4 H Chloride BUN 32 H Creatinine 1.5 H Glucose 168 H Uric Acid 11.7 H Phosphorus Magnesium 1.5 L GGT 87 H Alkaline Phosphatase 123 H Lactate Dehydrogenase 316 H Albumin 3.1 L Albumin/Globulin Ratio 0.9 L Urine Protein Urine Glucose (UA) Urine Occult Blood Urine RBC Urine WBC Vancomycin Trough 11/03/16 11/03/16 11/03/16 19:30 03:58 03:58 WBC Hgb RDW 18.4 H Lymph % (Auto) Lymph # Seg Neutrophils % Lymphocytes % 5 L RBC Morphology Abnorm A Polychromasia Few A Anisocytosis 1+ A RBC Fragments Few A VBG Lactic Acid Chloride 95 L BUN 31 H Creatinine 1.5 H Glucose Uric Acid 12.0 H Phosphorus Magnesium 1.5 L GGT 70 H Alkaline Phosphatase Lactate Dehydrogenase 304 H Albumin 2.7 L Albumin/Globulin Ratio 0.8 L Urine Protein 30 A Urine Glucose (UA) 50 A Urine Occult Blood >=1.0 A Urine RBC > 182 H Urine WBC 11 H Vancomycin Trough 11/02/16 11/02/16 11/01/16 03:45 03:45 13:54 WBC Hgb 13.4 L RDW 18.4 H Lymph % (Auto) 9.5 L Lymph # 0.9 L Seg Neutrophils % Lymphocytes % RBC Morphology Polychromasia Anisocytosis RBC Fragments VBG Lactic Acid Chloride BUN 32 H Creatinine 1.4 H Glucose 125 H Uric Acid 11.4 H Phosphorus 2.6 L Magnesium GGT 71 H Alkaline Phosphatase Lactate Dehydrogenase 281 H Albumin 2.8 L Albumin/Globulin Ratio 0.9 L Urine Protein Urine Glucose (UA) Urine Occult Blood Urine RBC Urine WBC Vancomycin Trough 27.2 H* Meds: Medications Acetaminophen/Codeine Phosphate (Tylenol #3) 1 tab PO Q4-6HP PRN PRN Reason: Pain Bisacodyl (Dulcolax) 10 mg MT Q2-3DAYS PRN PRN Reason: Constipation Bumetanide (Bumex) 0.5 mg PO BIDD [facility] Last Admin: 11/04/16 08:28 Dose: 0.5 mg Clotrimazole (Mycelex Crm 1%) 1 dose TOPICAL BID [facility] Last Admin: 11/04/16 08:34 Dose: 1 dose Dextrose (Dextrose 50%) 0 ml IV UD PRN PRN Reason: Hypoglycemia Diagnostic Test (Pha) (Accu-Chek) 1 each FS ACHS [facility] Last Admin: 11/04/16 08:30 Dose: 1 each Gabapentin (Neurontin) 600 mg PO TID [facility] Last Admin: 11/04/16 08:29 Dose: 600 mg Heparin Sodium (Porcine) (Heparin) 5,000 unit SQ Q12 [facility] Last Admin: 11/04/16 08:31 Dose: 5,000 unit Hydromorphone HCl (Dilaudid) 0.5 mg IV Q2HP PRN PRN Reason: Pain Imipenem/Cilastatin Sodium 500 (mg/ Sodium Chloride) 100 mls @ 100 mls/hr IV Q12H [facility] Last Admin: 11/04/16 08:37 Dose: 100 mls/hr Acetaminophen (Ofirmev) 1,000 mg in 100 mls @ 200 mls/hr IV Q6HP PRN PRN Reason: PAIN/FEVER > 101 Last Infusion: 11/03/16 21:46 Dose: Infused Norepinephrine Bitartrate 16 (mg/ Sodium Chloride) 250 mls @ 9.37 mls/hr IV Q24H [facility]; 10 MCG/MIN PRN Reason: Protocol Last Admin: 11/03/16 21:47 Dose: 10 mcg/min, 9.37 mls/hr Sodium Chloride (Sodium Chloride 0.9%) 250 mls @ 20 mls/hr IV .[id number] [facility] Last Admin: 11/03/16 21:50 Dose: 20 mls/hr Sodium Chloride (Sodium Chloride 0.9%) 1,000 mls @ 75 mls/hr IV .[id number] [facility] Stop: 11/05/16 01:39 Last Admin: 11/03/16 22:52 Dose: 75 mls/hr Insulin Glargine (Lantus) 10 unit SQ BID [facility] Last Admin: 11/04/16 08:31 Dose: 10 unit Insulin Human Lispro (Humalog) 0 unit SQ ACHS [facility] PRN Reason: Protocol Last Admin: 11/04/16 08:30 Dose: 1 unit Ipratropium [place] (Atrovent) 2.5 ml NEB Q4HRT [facility] Last Admin: 11/04/16 07:35 Dose: 2.5 ml Lidocaine (Lidoderm) 1 patch TOPICAL DAILY@1600 [facility] Lidocaine (Lidoderm) 0 patch TOPICAL DAILY@0400 [facility] Last Admin: 11/04/16 04:01 Dose: 1 patch Loratadine (Claritin) 10 mg PO QDAY [facility] Last Admin: 11/04/16 08:28 Dose: 10 mg Magnesium Hydroxide (Milk Of Magnesia) 30 ml PO DAILYP PRN PRN Reason: Constipation Naloxone HCl (Narcan) 0.1 mg IV Q2MIN PRN PRN Reason: Opiate Reversal Nitroglycerin (Nitrostat) 0.4 mg SL Q5-15MIN PRN PRN Reason: chest pain Ondansetron HCl (Zofran) 4 mg IV Q4-6HP PRN PRN Reason: Nausea And Vomiting Pantoprazole Sodium (Protonix) 40 mg PO QAMAC [facility] Last Admin: 11/04/16 08:30 Dose: 40 mg Dextran 70/Hypromellose [ Artificials Tears Drops] 1 dose OP TIDP PRN PRN Reason: dry eyes Nebivolol Hcl [ (Bystolic] 5 Mg) 1 dose PO BID [facility] Last Admin: 11/04/16 08:29 Dose: 1 dose Bismuth Subgallate ( (Devrom) 200 Mg Tab) 2 dose PO TIDPC [facility] Last Admin: 11/04/16 08:27 Dose: 2 dose Fluticasone/Salmeterol (Advair 250-50 Diskus) 1 puff INH Q12 [facility] Last Admin: 11/04/16 08:33 Dose: 1 dose Simvastatin (Zocor) 10 mg PO HS [facility] Last Admin: 11/03/16 22:06 Dose: 10 mg Sodium Chloride (Saline Flush) 10 ml IV Q8 [facility] Last Admin: 11/04/16 05:41 Dose: Not Given Vancomycin HCl (Vancomycin Per Pharmacy) 1 order IV UD [facility] Vitamin B Complex (Vitamin B Complex) 1 cap PO DAILY [facility] Last Admin: 11/04/16 08:28 Dose: 1 cap Medical - PN: A/P - Time Spent With Patient Total time spent is greater than 50% in coordination of care (as documented) at patient's floor/unit and/or counseling patient: Greater than 35 minutes (critical care time) - Narrative A/P Narrative: * septic shock- On pressors. white count 40,000 * Hypoxic respiratory failure-secondary to aspiration pneumonia * Bilateral aspiration pneumonia-continue imipenem. * MRSA lung abscess- Continue vancomycin/imipenem. follow-up interval CT scan to rule out lung cancer( Chest CT suspicious for lung cancer) * Severe pulmonary artery hypertension on echo. on calcium channel sharmila * history of heart failure * History of CAD: last stress test shows inferior lateral reversible ischemic region, not cath done as per last card note. continue pravastatin, nebivolol. * A. fib rate controlled. Not a candidate for long-term anticoagulation, per cardiology. * DM type [id number] * Ulcerative colitis: patient is s/p colectomy has a ileostomy in place. * GERD on PPI * subcutaneous heparin for prophylaxis * Neuropathy- continue gabapentin * CKD-creatinine around baseline 1.5 * no code plan * ICU care * Pressors/antibiotics * Supplemental oxygen * Aspiration precautions * Overall very poor prognosis and high risk mortality * Initiate transfer to long-term facility for antibiotic coverage * outpatient Interval CT Medical - PN: Qual - VTE Deep Vein Thrombosis/Pulmonary Embolism Present on Admission: No
[2016-11-04] MEDS: 0.9 % SODIUM CHLORIDE 250 ML IV SCH ×2 (10:19→23:09)
[2016-11-04 10:37] LABS: Vancomycin,Random 19.2 ug/ml
[2016-11-04] MEDS: 0.9 % SODIUM CHLORIDE 1,000 ML IV SCH (12:00)
[2016-11-04] MEDS: ACETAMINOPHEN W/CODEINE #3 1 TABLET PO PRN (14:23)
[2016-11-04] MEDS: ACETAMINOPHEN 1,000 MG/100 ML BOTTLE IV PRN (17:16)
[2016-11-04] MEDS: SIMVASTATIN 10 MG TABLET PO SCH (20:24)
[2016-11-04] MEDS: NOREPINEPHRINE BITARTRATE 16 MG in 0.9 % SODIUM CHLORIDE 234 ML IV SCH (22:07)
[2016-11-05] MEDS: ACETAMINOPHEN W/CODEINE #3 1 TABLET PO PRN (01:00)
[2016-11-05] MEDS: HYDROmorphone 2 MG/ML SYRINGE IV PRN ×3 (01:51→22:18)
[2016-11-05] MEDS: ACETAMINOPHEN 1,000 MG/100 ML BOTTLE IV PRN ×2 (02:10→15:49)
[2016-11-05] MEDS: IPRATROPIUM 2.5 ML AMPUL.NEB NEB SCH ×6 (03:06→23:37)
[2016-11-05] MEDS: LIDOCAINE PATCH TOPICAL SCH ×2 (03:52→16:31)
[2016-11-05] MEDS: 0.9 % SODIUM CHLORIDE 10 ML SYRINGE IV SCH ×3 (05:04→21:30)
[2016-11-05 05:55] LABS: Mean Cell Volume 88.2 fL (80.0-100.0); Mean Corpuscular HGB Conc 31.9 g/dL (31.0-36.0); Mean Corpuscular Hemoglobin 28.1 pg (26.0-34.0); Platelet Count 197 K/mcL (140-440); RBC 4.88 M/mcL (4.50-5.90)
[2016-11-05 06:20] LABS: ALT/SGPT 12 U/l (0-40); Albumin 2.9 gm/dL (3.2-5.2); Albumin/Globulin Ratio 0.9 (1.0-2.3); Alkaline Phosphatase 113 U/L (39-117); Bilirubin,Direct 0.4 mg/dL (0.0-0.3); Blood Urea Nitrogen 32 mg/dl (8-23); Gamma Glutamyl Transpeptidase 84 U/L (8-61); Magnesium 1.5 mg/dL (1.6-2.5); Uric Acid 10.9 mg/dL (2.5-8.0)
[2016-11-05 06:29] LABS: Anisocytosis 2+ (NONE SEEN); Band Neutrophils % 4 % (0-10); Eosinophils % (Manual) 4 % (0-7); Lymphocytes % 1 % (15-49); Monocytes % (Manual) 4 % (1-12); Ovalocytes 1+ (NONE SEEN); Platelet Estimate NORMAL (NORMAL); RBC Morphology ABNORM (NORMAL); Segmented Neutrophils % 86 % (38-78)
[2016-11-05] MEDS: VITAMIN B COMPLEX 1 CAPSULE PO SCH (08:09)
[2016-11-05] MEDS: GABAPENTIN 300 MG CAPSULE PO SCH ×3 (08:10→21:26)
[2016-11-05] MEDS: PANTOPRAZOLE 40 MG TABLET PO SCH (08:10)
[2016-11-05] MEDS: LORATADINE 10 MG TABLET PO SCH (08:11)
[2016-11-05] MEDS: BUMETANIDE 1 MG TABLET PO SCH ×2 (08:11→16:30)
[2016-11-05] MEDS: HEPARIN 5,000 UNIT/ML VIAL SQ SCH ×2 (08:12→21:25)
[2016-11-05] MEDS: BISMUTH SUBGALLATE PO SCH ×3 (08:12→16:34)
[2016-11-05] MEDS: NEBIVOLOL HCL 5 MG PO SCH ×2 (08:13→21:24)
[2016-11-05] MEDS: FLUTICASONE/SALMETEROL 250/50 INHALER #14 INH SCH ×2 (08:14→21:25)
[2016-11-05] MEDS: CLOTRIMAZOLE CRM 1% 1 DOSE TUBE TOPICAL SCH ×2 (08:16→21:29)
[2016-11-05] MEDS: IMIPENEM/CILASTATIN SODIUM 500 MG in 0.9 % SODIUM CHLORIDE 100 ML IV SCH ×2 (08:17→21:23)
[2016-11-05] MEDS: INSULIN GLARGINE, HUMAN 1 UNIT/0.01 ML SQ SCH ×2 (08:21→21:27)
[2016-11-05] MEDS: INSULIN LISPRO 1 UNIT/0.01 ML UNIT SQ SCH ×4 (08:21→21:26)
[2016-11-05] MEDS ORDERED: MAGNESIUM SULFATE 2 GM/50 ML BAG IV PRN (09:34)
--- NOTE | 2016-11-05 09:36 | Internal Med Progress Note ---
Medical - PN: Subj Patient information: Note initiated : 11/05/16 at 9:33 am Service Date, if different from initiated Date: [] Patient: Partha Samuels 81 y/o M admitted on 10/27/16 for SOB/Lt Lung Mass, COPD , PNA, Sepsis, CHF. Chief Complaint: [] Interval history: october 27, 2016:History of present illness: Mr. Samuels is a 81 year old male with multiple medical issues. presented to the ER with shortness of breath, increased generalized pain, and subjective sensation of pain and fever. The patient notes that he was doing well approximately upto 2 weeks ago, and since then he has been having gradual decline in his condition. He has intermittent bouts of shortness of breath. He admits to having cough with whitish greyish sputum, fever with temp of 99, chills and intermittent rigors. The patient is a poor historian and had significant tangentiality to his history. He notes that some times he gets sob while passing urine. but denies any burning urine, foul smelling urine or increased frequency of urination. He denies any abdominal pain, nausea and or vomiting. He has a ileostomy in place, but denies any change in bowel habits. The patient in the ER was noted to be tachycardic and tachypneic, the patient had elevated wbc count, elevated lactic acid, elevated gap, pt was at baseline renal function, had elevated BNP. CXR was reported as possible abscess in the right upper lobe. CT scan of the Chest shows a cavitary mass in the right upper lobe (night hawk read). Patient as admitted to the hospital with diagnosis of PNA, new onset mass (squamous cell Ca) . October 28: Patient seen examined, no acute overnight events, remains of 5L oxygen. He denies any new concerns. I reviewed the CT findings with him of possible mass vs abscess. I reviewed the CT with our radiologist who feels that this is abscess rather than a tumor. Night hawk read mentions likely malignant tumor. The radiologist does not feel that the mass/ abscess can be drained given severe empysema and risk of coverting abscess to empyema. patient remains on broad spectrum ABX vanco and imipenum. The patient remains of lasix for chf and cor pulmonale. Hemodynamically stable. I have consulted pulmonary for their guidance. Plan to sent fungal culture and stain, also afb and quantiferon which has been ordered. Pt placed in air borne isolation. October 29: This patient was admitted with signs and symptoms of pneumonia, but an unusual appearing infiltrate on his chest x-ray, suggesting the possibility of atypical pneumonia, versus abscess, versus lung cancer. He has known severe COPD/ emphysema. today,he notes his shortness of breath is much improved over admission. He says he has a pretty minimal, nonproductive, cough. He still feels chilled occasionally, but is unaware fever. He continues to have mild dyspnea on exertion, which he describes not only shortness of breath but as a feeling that his legs will collapse, if he tries to walk anywhere. He and his report that that sensation and weakness have been going on for about a week or so. However, she notes he really has not done that well, strength almonte, since he was discharged from rehabilitation, last year. He otherwise denies headaches or dizziness, sore throat, chest pain or palpitations, abdominal pain, nausea or vomiting, diarrhea or constipation, dysuria. -he continues to require high flow oxygen to maintain saturations above 90%. -He continues with elevated white blood cell countall which is essentially unchanged. -Nurses were concerned about giving him insulin last night, as blood sugars are generally ranging less than 200. He is on sliding scale insulin coverage. October 30: today, patient says he thinks he is feeling a little less short of breath with exertion although he does spend most of his time either in bed or in the chair. He continues to have a productive cough,but says he really doesn' t feel especially short of breath at rest. He tells me that last night while transferring from the chair back to the bed he suddenly got extremely weak, and essentially collapsed onto the bed. His nurse says that he seemed to have a staring spell that lasted a few seconds. His says he has episodes of this at home fairly often, and will sometimes changes color and start to look a little blue. He does appear to desaturate dramatically with any activity, and this is probably happening at home as well. He usesO2 2 L continuous at home, and his says that she has been reluctant to turn that up, for fear of causing CO2 retention. otherwise, he denies fever or chills sore throat, chest pain or palpitations, abdominal pain, nausea or vomiting, diarrhea or constipation, dysuria. October 31: - today, the patient notes he thinks he is having a little bit less shortness of breath with exertion compared to a couple of days ago. He is continuing to cough up phlegm, and says his chest feels clearer after he is able to cough up sputum. he denies fever or chills, or significant wheezing. -sputum culture today is growing MRSA. -He tells me today, that while he hurts all over, he is having quite a bit of pain in the right knee. He says when he stands up, the knee pain goes up significantly, and is interfering with his attempts at ambulation. -otherwise, he denies headaches or dizziness, chest pain or palpitations, abdominal pain, nausea or vomiting, diarrhea or constipation, dysuria. November 01: -the patient actually is feeling quite a bit better today. He still has a cough productive ofa lot of sputum, but is generally feeling less short of breath. Physical therapy said he did seem stronger today, when trying to transfer from bed to chair. we had him use an oxi-mask yesterday and last night, and that did a better job at maintaining his O2 saturations but he does complain that it makes him feel quite claustrophobic, so did go back to the nasal cannula this morning. Even while talking with me in the room with a nasal cannula on he will drop his O2 saturations into the 70s, and fingernails will turn blue. -I did hold his oral bumex, so that we could add Norvasc, to try to help with pulmonary hypertension issues. Blood pressures are running borderline low but he is of course also having some increased edema in his legs and scrotum. -right knee pain is a bit better today, using both Tylenol with Codeine as well as the Lidoderm patch. patient otherwise denies fever or chills, headaches or dizziness, chest pain He continues to have dyspnea with minimal exertion. He denies abdominal pain, nausea or vomiting, diarrhea or constipation. Serrano catheter remains in place, as staff does not feel that he can get up and down to use a urinal. November 02: he patient says he is feeling even better today, than yesterday. He feels that he is a little less short of breath. He is very pleased that his right knee pain seems to be better, especially since the Lidoderm patch. He is wondering how long he will need antibiotics and wondering if he needs a longer term IV. Otherwise, he denies fever or chills, although he notes he always feels cold towards evening. He denies chest pain or palpitations. He does have a productive cough still. he denies abdominal pain, nausea or vomiting, diarrhea or constipation. he still has his Serrano catheter in place, and we discussed removing that, but hethinks he is still too weak to stand up frequently to use a urinal. His nurses agree with that. 11/03- patient feeling a lot better. Sitting on chair with his at bedside. No overnight fever chills or concerns per staff. White count down to 7.8.stable hemodynamics and vitals. creatinine 1.5. continue antibiotic coverage 18:00 Patient was noticed significantly short of breath along with shaking chills. Stat lactic acid 3.9. Blood gas PaO2 68 on 15 L oxygen. Transfer to ICU in light of hypoxic respiratory failure. Stat chest x-ray. patient and septic shock. On pressors. X-ray shows bilateral infiltrates likely aspiration pneumonia. Patient is a no code 11/04- on 10 L oxygen. Profound hypoxic respiratory failure. aspiration pneumonia. Continue broad antibiotic coverage. On pressors. Map at goal. Critically ill. Cantwell score 18. High risk mortality. informed about poor prognosis. If patient fails to respond to conventional treatment would contemplate comfort care measures. Continue ICU care 11/05- patient doing well. Overnight persistent hypoxia. No concerns per staff. no symptoms of agitation and delirium.on 10 L oxygen however more lucid and alert and less labored. MAXIMUM TEMPERATURE 102 with overnight shaking chills. Blood cultures pending. White count from 14-17,000. at bedside. Continue physical therapy - Constitutional Vitals: Vital Signs Temp Pulse Resp BP Pulse Ox 97.5 F 99 H 18 117/82 98 11/05/16 07:45 11/05/16 07:45 11/05/16 07:45 11/05/16 07:45 11/05/16 07:45 Period Temp Pulse Resp BP Sys/Portillo Pulse Ox Last 24 Hr 97.5 F-102.7 F 77-120 14-30 69-128/45-82 81-100 Intake and Output 11/04/16 11/05/16 11/05/16 21:59 05:59 13:59 Intake Total 382 / 382 821 / 821 12 / 12 Output Total 1300 / 1300 105 / 105 Balance 382 / 382 -479 / -479 -93 / -93 Weight 222 lb 9.6 oz Intake & Output: Intake & Output 11/04/16 11/05/16 11/05/16 21:59 05:59 13:59 Intake Total 382 / 382 821 / 821 12 Output Total 1300 / 1300 105 / 105 Balance 382 / 382 -479 / -479 -93 / -93 Weight 222 lb 9.6 oz Intake: IV 262 / 262 471 / 471 12 / 12 Sodium Chloride 0.9% 250 335 / 335 ml @ 20 mls/hr IV . [id number] [facility] Rx#:[id number] Primaxin 500 mg In Sodium 100 / 100 Chloride 0.9% 100 ml @ 100 mls/hr IV Q12H [facility] Rx #:[id number] Levophed 16 mg In Sodium 62 / 62 36 / 36 12 / 12 Chloride 0.9% 234 ml @ 10 MCG/MIN 9.37 mls/hr IV Q24H [facility] Rx#:[id number] Oral 120 / 120 350 / 350 Output: Urine Catheter Amount 1100 / 1100 105 / 105 Stool 200 / 200 Other: Meal Dinner Percent of Meal Consumed 25% General appearance: cooperative, no acute distress Exam: not oriented nonlabored breathing, On 10 L oxygen Nondistended abdomen Medical - PN: Obj Da - Labs CBC & Chem 7: 11/05/16 03:35 11/05/16 03:35 Labs: Abnormal Lab Results 11/05/16 11/05/16 11/04/16 03:35 03:35 04:30 WBC 17.1 H RDW 19.0 H Seg Neutrophils % 86 H Lymphocytes % 1 L RBC Morphology Abnorm A Polychromasia Anisocytosis 2+ A Ovalocytes 1+ A RBC Fragments VBG Lactic Acid Chloride BUN 32 H 32 H Creatinine 1.5 H 1.5 H Glucose 150 H 168 H Uric Acid 10.9 H 11.7 H Magnesium 1.5 L 1.5 L Direct Bilirubin 0.4 H GGT 84 H 87 H Alkaline Phosphatase 123 H Lactate Dehydrogenase 361 H 316 H Albumin 2.9 L 3.1 L Albumin/Globulin Ratio 0.9 L 0.9 L Urine Protein Urine Glucose (UA) Urine Occult Blood Urine RBC Urine WBC 11/04/16 11/03/16 11/03/16 04:30 20:05 19:30 WBC 14.3 H RDW 18.4 H Seg Neutrophils % 80 H Lymphocytes % 4 L RBC Morphology Abnorm A Polychromasia Anisocytosis 1+ A Ovalocytes RBC Fragments VBG Lactic Acid 2.4 H Chloride BUN Creatinine Glucose Uric Acid Magnesium Direct Bilirubin GGT Alkaline Phosphatase Lactate Dehydrogenase Albumin Albumin/Globulin Ratio Urine Protein 30 A Urine Glucose (UA) 50 A Urine Occult Blood >=1.0 A Urine RBC > 182 H Urine WBC 11 H 11/03/16 11/03/16 03:58 03:58 WBC RDW 18.4 H Seg Neutrophils % Lymphocytes % 5 L RBC Morphology Abnorm A Polychromasia Few A Anisocytosis 1+ A Ovalocytes RBC Fragments Few A VBG Lactic Acid Chloride 95 L BUN 31 H Creatinine 1.5 H Glucose Uric Acid 12.0 H Magnesium 1.5 L Direct Bilirubin GGT 70 H Alkaline Phosphatase Lactate Dehydrogenase 304 H Albumin 2.7 L Albumin/Globulin Ratio 0.8 L Urine Protein Urine Glucose (UA) Urine Occult Blood Urine RBC Urine WBC Meds: Medications Acetaminophen/Codeine Phosphate (Tylenol #3) 1 tab PO Q4-6HP PRN PRN Reason: Pain Last Admin: 11/05/16 01:00 Dose: 1 tab Bisacodyl (Dulcolax) 10 mg OH Q2-3DAYS PRN PRN Reason: Constipation Bumetanide (Bumex) 0.5 mg PO BIDD [facility] Last Admin: 11/05/16 08:11 Dose: 0.5 mg Clotrimazole (Mycelex Crm 1%) 1 dose TOPICAL BID [facility] Last Admin: 11/05/16 08:16 Dose: 1 dose Dextrose (Dextrose 50%) 0 ml IV UD PRN PRN Reason: Hypoglycemia Diagnostic Test (Pha) (Accu-Chek) 1 each FS ACHS [facility] Last Admin: 11/05/16 08:08 Dose: 1 each Gabapentin (Neurontin) 600 mg PO TID [facility] Last Admin: 11/05/16 08:10 Dose: 600 mg Heparin Sodium (Porcine) (Heparin) 5,000 unit SQ Q12 [facility] Last Admin: 11/05/16 08:12 Dose: 5,000 unit Hydromorphone HCl (Dilaudid) 0.5 mg IV Q2HP PRN PRN Reason: Pain Last Admin: 11/05/16 01:51 Dose: 0.5 mg Imipenem/Cilastatin Sodium 500 (mg/ Sodium Chloride) 100 mls @ 100 mls/hr IV Q12H [facility] Last Admin: 11/05/16 08:17 Dose: 100 mls/hr Acetaminophen (Ofirmev) 1,000 mg in 100 mls @ 200 mls/hr IV Q6HP PRN PRN Reason: PAIN/FEVER > 101 Last Infusion: 11/05/16 02:49 Dose: Infused Norepinephrine Bitartrate 16 (mg/ Sodium Chloride) 250 mls @ 9.37 mls/hr IV Q24H [facility]; 10 MCG/MIN PRN Reason: Protocol Last Titration: 11/05/16 07:20 Dose: 6 mcg/min, 5.62 mls/hr Sodium Chloride (Sodium Chloride 0.9%) 250 mls @ 20 mls/hr IV .[id number] [facility] Last Infusion: 11/05/16 03:25 Dose: 20 mls/hr Insulin Glargine (Lantus) 10 unit SQ BID [facility] Last Admin: 11/05/16 08:21 Dose: 10 unit Insulin Human Lispro (Humalog) 0 unit SQ ACHS [facility] PRN Reason: Protocol Last Admin: 11/05/16 08:21 Dose: 1 unit Ipratropium [place] (Atrovent) 2.5 ml NEB Q4HRT [facility] Last Admin: 11/05/16 07:17 Dose: 2.5 ml Lidocaine (Lidoderm) 1 patch TOPICAL DAILY@1600 [facility] Last Admin: 11/04/16 14:39 Dose: 1 patch Lidocaine (Lidoderm) 0 patch TOPICAL DAILY@0400 [facility] Last Admin: 11/05/16 03:52 Dose: Not Given Loratadine (Claritin) 10 mg PO QDAY [facility] Last Admin: 11/05/16 08:11 Dose: 10 mg Magnesium Hydroxide (Milk Of Magnesia) 30 ml PO DAILYP PRN PRN Reason: Constipation Naloxone HCl (Narcan) 0.1 mg IV Q2MIN PRN PRN Reason: Opiate Reversal Nitroglycerin (Nitrostat) 0.4 mg SL Q5-15MIN PRN PRN Reason: chest pain Ondansetron HCl (Zofran) 4 mg IV Q4-6HP PRN PRN Reason: Nausea And Vomiting Pantoprazole Sodium (Protonix) 40 mg PO QAMAC [facility] Last Admin: 11/05/16 08:10 Dose: 40 mg Dextran 70/Hypromellose [ Artificials Tears Drops] 1 dose OP TIDP PRN PRN Reason: dry eyes Nebivolol Hcl [ (Bystolic] 5 Mg) 1 dose PO BID [facility] Last Admin: 11/05/16 08:13 Dose: 1 dose Bismuth Subgallate ( (Devrom) 200 Mg Tab) 2 dose PO TIDPC [facility] Last Admin: 11/05/16 08:12 Dose: 2 dose Fluticasone/Salmeterol (Advair 250-50 Diskus) 1 puff INH Q12 [facility] Last Admin: 11/05/16 08:14 Dose: 1 dose Simvastatin (Zocor) 10 mg PO HS [facility] Last Admin: 11/04/16 20:24 Dose: 10 mg Sodium Chloride (Saline Flush) 10 ml IV Q8 [facility] Last Admin: 11/05/16 05:04 Dose: 10 ml Vancomycin HCl (Vancomycin Per Pharmacy) 1 order IV UD [facility] Vitamin B Complex (Vitamin B Complex) 1 cap PO DAILY [facility] Last Admin: 11/05/16 08:09 Dose: 1 cap Medical - PN: A/P - Time Spent With Patient Total time spent is greater than 50% in coordination of care (as documented) at patient's floor/unit and/or counseling patient: Greater than 35 minutes (critical care time) - Narrative A/P Narrative: * Hypoxic respiratory failure-secondary to aspiration pneumonia- now down to 10 L oxygen * Septic shock- On pressors. white count 17.2. patient critically ill * Bilateral aspiration pneumonia-continue imipenem/aspiration precautions * MRSA lung abscess- Continue vancomycin/imipenem. follow-up interval CT scan to rule out lung cancer( Chest CT suspicious for lung cancer) * Severe pulmonary artery hypertension on echo. on CCB * history of heart failure- continue close monitoring for decompensation * History of CAD: last stress test shows inferior lateral reversible ischemic region, not cath done as per last card note. continue pravastatin, nebivolol. * A. fib rate controlled. Not a candidate for long-term anticoagulation, per cardiology. * DM type [id number] * Ulcerative colitis: patient is s/p colectomy has a ileostomy in place. * GERD on PPI * subcutaneous heparin for prophylaxis * Neuropathy- continue gabapentin * CKD-creatinine around baseline 1.5 * no code plan * continueICU care * wean Pressors/continue antibiotics * Aspiration precautions * Overall poor prognosis and high risk mortality based on Cantwell score over 15 * target transfer to long-term facility for antibiotic coverage and posthospitalization rehabilitation if patient improves * onsider outpatient Interval CT Medical - PN: Qual - VTE Deep Vein Thrombosis/Pulmonary Embolism Present on Admission: No
[2016-11-05] MEDS ORDERED: VANCOMYCIN 1,000 MG in 0.9 % SODIUM CHLORIDE 250 ML IV SCH (10:00)
[2016-11-05] MEDS: 0.9 % SODIUM CHLORIDE 250 ML IV SCH (11:09)
[2016-11-05] MEDS ORDERED: ACETAMINOPHEN 650 MG/65 ML BOTTLE IV PRN (14:12)
[2016-11-05] MEDS ORDERED: NOREPINEPHRINE BITARTRATE 4 MG/4 ML AMPUL IV ONE (21:16)
[2016-11-05] MEDS: SIMVASTATIN 10 MG TABLET PO SCH (21:26)
[2016-11-05] MEDS: NOREPINEPHRINE BITARTRATE 16 MG in 0.9 % SODIUM CHLORIDE 234 ML IV SCH (21:27)
[2016-11-06] MEDS: 0.9 % SODIUM CHLORIDE 250 ML IV SCH ×2 (01:10→14:31)
[2016-11-06] MEDS: BUMETANIDE 1 MG TABLET PO SCH ×2 (01:12→07:28)
[2016-11-06] MEDS: LIDOCAINE PATCH TOPICAL SCH ×2 (01:12→04:30)
[2016-11-06] MEDS: ACETAMINOPHEN 1,000 MG/100 ML BOTTLE IV PRN (01:58)
[2016-11-06] MEDS: IPRATROPIUM 2.5 ML AMPUL.NEB NEB SCH ×3 (03:55→11:10)
[2016-11-06 05:18] LABS: Mean Cell Volume 88.2 fL (80.0-100.0); Mean Corpuscular HGB Conc 31.7 g/dL (31.0-36.0); Platelet Count 178 K/mcL (140-440); RBC 4.78 M/mcL (4.50-5.90); Red Cell Distribution Width 18.2 % (11.5-14.5)
[2016-11-06 05:37] LABS: ALT/SGPT 16 U/l (0-40); Albumin 2.7 gm/dL (3.2-5.2); Albumin/Globulin Ratio 0.9 (1.0-2.3); Alkaline Phosphatase 102 U/L (39-117); Bilirubin,Direct 0.3 mg/dL (0.0-0.3); Blood Urea Nitrogen 33 mg/dl (8-23); Gamma Glutamyl Transpeptidase 76 U/L (8-61); Magnesium 1.7 mg/dL (1.6-2.5); Uric Acid 11.1 mg/dL (2.5-8.0)
[2016-11-06] MEDS: 0.9 % SODIUM CHLORIDE 10 ML SYRINGE IV SCH ×3 (05:42→20:14)
[2016-11-06 06:14] LABS: Anisocytosis 1+ (NONE SEEN); Band Neutrophils % 8 % (0-10); Eosinophils % (Manual) 1 % (0-7); Lymphocytes % 5 % (15-49); Monocytes % (Manual) 6 % (1-12); Platelet Estimate NORMAL (NORMAL); RBC Morphology ABNORM (NORMAL); Segmented Neutrophils % 79 % (38-78)
[2016-11-06] MEDS: BISMUTH SUBGALLATE PO SCH ×2 (07:28→14:31)
[2016-11-06] MEDS: PANTOPRAZOLE 40 MG TABLET PO SCH (07:28)
[2016-11-06] MEDS: HEPARIN 5,000 UNIT/ML VIAL SQ SCH (08:37)
[2016-11-06] MEDS: LORATADINE 10 MG TABLET PO SCH (08:37)
[2016-11-06] MEDS: VITAMIN B COMPLEX 1 CAPSULE PO SCH (08:38)
[2016-11-06] MEDS: IMIPENEM/CILASTATIN SODIUM 500 MG in 0.9 % SODIUM CHLORIDE 100 ML IV SCH (08:38)
[2016-11-06] MEDS: GABAPENTIN 300 MG CAPSULE PO SCH (08:38)
[2016-11-06] MEDS: NEBIVOLOL HCL 5 MG PO SCH (08:39)
[2016-11-06] MEDS: INSULIN LISPRO 1 UNIT/0.01 ML UNIT SQ SCH ×2 (08:39→11:04)
[2016-11-06] MEDS: FLUTICASONE/SALMETEROL 250/50 INHALER #14 INH SCH (08:40)
[2016-11-06] MEDS: CLOTRIMAZOLE CRM 1% 1 DOSE TUBE TOPICAL SCH (08:41)
--- NOTE | 2016-11-06 09:26 | Internal Med Progress Note ---
Medical - PN: Subj Patient information: Note initiated : 11/06/16 at 9:23 am Service Date, if different from initiated Date: [] Patient: Partha Samuels 81 y/o M admitted on 10/27/16 for SOB/Lt Lung Mass, COPD , PNA, Sepsis, CHF. Chief Complaint: [] Interval history: october 27, 2016:History of present illness: Mr. Samuels is a 81 year old male with multiple medical issues. presented to the ER with shortness of breath, increased generalized pain, and subjective sensation of pain and fever. The patient notes that he was doing well approximately upto 2 weeks ago, and since then he has been having gradual decline in his condition. He has intermittent bouts of shortness of breath. He admits to having cough with whitish greyish sputum, fever with temp of 99, chills and intermittent rigors. The patient is a poor historian and had significant tangentiality to his history. He notes that some times he gets sob while passing urine. but denies any burning urine, foul smelling urine or increased frequency of urination. He denies any abdominal pain, nausea and or vomiting. He has a ileostomy in place, but denies any change in bowel habits. The patient in the ER was noted to be tachycardic and tachypneic, the patient had elevated wbc count, elevated lactic acid, elevated gap, pt was at baseline renal function, had elevated BNP. CXR was reported as possible abscess in the right upper lobe. CT scan of the Chest shows a cavitary mass in the right upper lobe (night hawk read). Patient as admitted to the hospital with diagnosis of PNA, new onset mass (squamous cell Ca) . October 28: Patient seen examined, no acute overnight events, remains of 5L oxygen. He denies any new concerns. I reviewed the CT findings with him of possible mass vs abscess. I reviewed the CT with our radiologist who feels that this is abscess rather than a tumor. Night hawk read mentions likely malignant tumor. The radiologist does not feel that the mass/ abscess can be drained given severe empysema and risk of coverting abscess to empyema. patient remains on broad spectrum ABX vanco and imipenum. The patient remains of lasix for chf and cor pulmonale. Hemodynamically stable. I have consulted pulmonary for their guidance. Plan to sent fungal culture and stain, also afb and quantiferon which has been ordered. Pt placed in air borne isolation. October 29: This patient was admitted with signs and symptoms of pneumonia, but an unusual appearing infiltrate on his chest x-ray, suggesting the possibility of atypical pneumonia, versus abscess, versus lung cancer. He has known severe COPD/ emphysema. today,he notes his shortness of breath is much improved over admission. He says he has a pretty minimal, nonproductive, cough. He still feels chilled occasionally, but is unaware fever. He continues to have mild dyspnea on exertion, which he describes not only shortness of breath but as a feeling that his legs will collapse, if he tries to walk anywhere. He and his report that that sensation and weakness have been going on for about a week or so. However, she notes he really has not done that well, strength almonte, since he was discharged from rehabilitation, last year. He otherwise denies headaches or dizziness, sore throat, chest pain or palpitations, abdominal pain, nausea or vomiting, diarrhea or constipation, dysuria. -he continues to require high flow oxygen to maintain saturations above 90%. -He continues with elevated white blood cell countall which is essentially unchanged. -Nurses were concerned about giving him insulin last night, as blood sugars are generally ranging less than 200. He is on sliding scale insulin coverage. October 30: today, patient says he thinks he is feeling a little less short of breath with exertion although he does spend most of his time either in bed or in the chair. He continues to have a productive cough,but says he really doesn' t feel especially short of breath at rest. He tells me that last night while transferring from the chair back to the bed he suddenly got extremely weak, and essentially collapsed onto the bed. His nurse says that he seemed to have a staring spell that lasted a few seconds. His says he has episodes of this at home fairly often, and will sometimes changes color and start to look a little blue. He does appear to desaturate dramatically with any activity, and this is probably happening at home as well. He usesO2 2 L continuous at home, and his says that she has been reluctant to turn that up, for fear of causing CO2 retention. otherwise, he denies fever or chills sore throat, chest pain or palpitations, abdominal pain, nausea or vomiting, diarrhea or constipation, dysuria. October 31: - today, the patient notes he thinks he is having a little bit less shortness of breath with exertion compared to a couple of days ago. He is continuing to cough up phlegm, and says his chest feels clearer after he is able to cough up sputum. he denies fever or chills, or significant wheezing. -sputum culture today is growing MRSA. -He tells me today, that while he hurts all over, he is having quite a bit of pain in the right knee. He says when he stands up, the knee pain goes up significantly, and is interfering with his attempts at ambulation. -otherwise, he denies headaches or dizziness, chest pain or palpitations, abdominal pain, nausea or vomiting, diarrhea or constipation, dysuria. November 01: -the patient actually is feeling quite a bit better today. He still has a cough productive ofa lot of sputum, but is generally feeling less short of breath. Physical therapy said he did seem stronger today, when trying to transfer from bed to chair. we had him use an oxi-mask yesterday and last night, and that did a better job at maintaining his O2 saturations but he does complain that it makes him feel quite claustrophobic, so did go back to the nasal cannula this morning. Even while talking with me in the room with a nasal cannula on he will drop his O2 saturations into the 70s, and fingernails will turn blue. -I did hold his oral bumex, so that we could add Norvasc, to try to help with pulmonary hypertension issues. Blood pressures are running borderline low but he is of course also having some increased edema in his legs and scrotum. -right knee pain is a bit better today, using both Tylenol with Codeine as well as the Lidoderm patch. patient otherwise denies fever or chills, headaches or dizziness, chest pain He continues to have dyspnea with minimal exertion. He denies abdominal pain, nausea or vomiting, diarrhea or constipation. Serrano catheter remains in place, as staff does not feel that he can get up and down to use a urinal. November 02: he patient says he is feeling even better today, than yesterday. He feels that he is a little less short of breath. He is very pleased that his right knee pain seems to be better, especially since the Lidoderm patch. He is wondering how long he will need antibiotics and wondering if he needs a longer term IV. Otherwise, he denies fever or chills, although he notes he always feels cold towards evening. He denies chest pain or palpitations. He does have a productive cough still. he denies abdominal pain, nausea or vomiting, diarrhea or constipation. he still has his Serrano catheter in place, and we discussed removing that, but hethinks he is still too weak to stand up frequently to use a urinal. His nurses agree with that. 11/03- patient feeling a lot better. Sitting on chair with his at bedside. No overnight fever chills or concerns per staff. White count down to 7.8.stable hemodynamics and vitals. creatinine 1.5. continue antibiotic coverage 18:00 Patient was noticed significantly short of breath along with shaking chills. Stat lactic acid 3.9. Blood gas PaO2 68 on 15 L oxygen. Transfer to ICU in light of hypoxic respiratory failure. Stat chest x-ray. patient and septic shock. On pressors. X-ray shows bilateral infiltrates likely aspiration pneumonia. Patient is a no code 11/04- on 10 L oxygen. Profound hypoxic respiratory failure. aspiration pneumonia. Continue broad antibiotic coverage. On pressors. Map at goal. Critically ill. [place] score 18. High risk mortality. informed about poor prognosis. If patient fails to respond to conventional treatment would contemplate comfort care measures. Continue ICU care 11/05- patient doing well. Overnight persistent hypoxia. No concerns per staff. no symptoms of agitation and delirium.on 10 L oxygen however more lucid and alert and less labored. MAXIMUM TEMPERATURE 102 with overnight shaking chills. Blood cultures pending. White count from 14-17,000. at bedside. Continue physical therapy ADDENDUM- case discussed with patient and . In light of failure to respond to conventional treatment for over 9 days with aggressive antibiotics and pressors patient and decided for initiation of palliative interventions for end of life care if patient fails to improve in the next 24 hours 11/06- patient on continued pressors. T-Max 101. White count down to 13,000 however clinically unchanged. Patient and recommendations initiation of palliative measures for end of life care and discontinuation iCU treatment/ procedures. Patient will be transferred to medical floor on palliative interventions including aggressive pain and symptom management - Constitutional Vitals: Vital Signs Temp Pulse Resp BP Pulse Ox 97.2 F 89 18 100/63 98 11/06/16 06:54 11/06/16 07:13 11/06/16 07:13 11/06/16 06:54 11/06/16 07:13 Period Temp Pulse Resp BP Sys/[place] Pulse Ox Last 24 Hr 97.2 F-103.4 F 64-110 12-30 77-243/47-217 82-98 Intake and Output 11/05/16 11/06/16 11/06/16 21:59 05:59 13:59 Intake Total 667 / 667 219 / 219 Output Total 380 / 380 955 / 955 Balance 287 / 287 -736 / -736 Weight 227 lb 1.218 oz Intake & Output: Intake & Output 11/05/16 11/06/16 11/06/16 21:59 05:59 13:59 Intake Total 667 / 667 219 / 219 Output Total 380 / 380 955 / 955 Balance 287 / 287 -736 / -736 Weight 227 lb 1.218 oz Intake: IV 131 / 131 219 / 219 Primaxin 500 mg In Sodium 100 / 100 Chloride 0.9% 100 ml @ 100 mls/hr IV Q12H [facility] Rx #:[id number] Levophed 16 mg In Sodium / 31 19 / 19 Chloride 0.9% 234 ml @ 10 MCG/MIN 9.37 mls/hr IV Q24H [facility] Rx#:[id number] Oral 536 / 536 Output: Urine Catheter Amount 380 / 380 955 / 955 General appearance: cooperative, no acute distress Exam: alert on 10 L oxygen Labored breathing nondistended abdomen Medical - PN: Obj Da - Labs CBC & Chem 7: 11/06/16 03:40 11/06/16 03:40 Labs: Abnormal Lab Results 11/06/16 11/06/16 11/05/16 03:40 03:40 03:35 WBC Hgb 13.4 L RDW 18.2 H Seg Neutrophils % 79 H Lymphocytes % 5 L RBC Morphology Abnorm A Anisocytosis 1+ A Ovalocytes VBG Lactic Acid BUN 33 H 32 H Creatinine 1.6 H 1.5 H Glucose 147 H 150 H Uric Acid 11.1 H 10.9 H Magnesium 1.5 L Direct Bilirubin 0.4 H GGT 76 H 84 H Alkaline Phosphatase Lactate Dehydrogenase 298 H 361 H Total Protein 5.8 L Albumin 2.7 L 2.9 L Albumin/Globulin Ratio 0.9 L 0.9 L Urine Protein Urine Glucose (UA) Urine Occult Blood Urine RBC Urine WBC 11/05/16 11/04/16 11/04/16 03:35 04:30 04:30 WBC 17.1 H 14.3 H Hgb RDW 19.0 H 18.4 H Seg Neutrophils % 86 H 80 H Lymphocytes % 1 L 4 L RBC Morphology Abnorm A Abnorm A Anisocytosis 2+ A 1+ A Ovalocytes 1+ A VBG Lactic Acid BUN 32 H Creatinine 1.5 H Glucose 168 H Uric Acid 11.7 H Magnesium 1.5 L Direct Bilirubin GGT 87 H Alkaline Phosphatase 123 H Lactate Dehydrogenase 316 H Total Protein Albumin 3.1 L Albumin/Globulin Ratio 0.9 L Urine Protein Urine Glucose (UA) Urine Occult Blood Urine RBC Urine WBC 11/03/16 11/03/16 20:05 19:30 WBC Hgb RDW Seg Neutrophils % Lymphocytes % RBC Morphology Anisocytosis Ovalocytes VBG Lactic Acid 2.4 H BUN Creatinine Glucose Uric Acid Magnesium Direct Bilirubin GGT Alkaline Phosphatase Lactate Dehydrogenase Total Protein Albumin Albumin/Globulin Ratio Urine Protein 30 A Urine Glucose (UA) 50 A Urine Occult Blood >=1.0 A Urine RBC > 182 H Urine WBC 11 H Meds: Medications Acetaminophen/Codeine Phosphate (Tylenol #3) 1 tab PO Q4-6HP PRN PRN Reason: Pain Last Admin: 11/05/16 01:00 Dose: 1 tab Bisacodyl (Dulcolax) 10 mg NV Q2-3DAYS PRN PRN Reason: Constipation Bumetanide (Bumex) 0.5 mg PO BIDD [facility] Last Admin: 11/06/16 07:28 Dose: 0.5 mg Clotrimazole (Mycelex Crm 1%) 1 dose TOPICAL BID [facility] Last Admin: 11/06/16 08:41 Dose: 1 dose Dextrose (Dextrose 50%) 0 ml IV UD PRN PRN Reason: Hypoglycemia Diagnostic Test (Pha) (Accu-Chek) 1 each FS ACHS [facility] Last Admin: 11/06/16 08:37 Dose: 1 each Gabapentin (Neurontin) 600 mg PO TID [facility] Last Admin: 11/06/16 08:38 Dose: 600 mg Heparin Sodium (Porcine) (Heparin) 5,000 unit SQ Q12 [facility] Last Admin: 11/06/16 08:37 Dose: 5,000 unit Hydromorphone HCl (Dilaudid) 0.5 mg IV Q2HP PRN PRN Reason: Pain Last Admin: 11/05/16 22:18 Dose: 0.5 mg Imipenem/Cilastatin Sodium 500 (mg/ Sodium Chloride) 100 mls @ 100 mls/hr IV Q12H [facility] Last Admin: 11/06/16 08:38 Dose: 100 mls/hr Acetaminophen (Ofirmev) 1,000 mg in 100 mls @ 200 mls/hr IV Q6HP PRN PRN Reason: PAIN/FEVER > 101 Last Infusion: 11/06/16 02:40 Dose: Infused Norepinephrine Bitartrate 16 (mg/ Sodium Chloride) 250 mls @ 9.37 mls/hr IV Q24H [facility]; 10 MCG/MIN PRN Reason: Protocol Last Titration: 11/06/16 01:26 Dose: 2.5 mcg/min, 2.34 mls/hr Sodium Chloride (Sodium Chloride 0.9%) 250 mls @ 20 mls/hr IV .[id number] [facility] Last Admin: 11/06/16 01:10 Dose: Not Given Magnesium Sulfate (Magnesium Sulfate) 2 gm in 50 mls @ 50 mls/hr IV UD PRN PRN Reason: Mag < or = 1.7 Vancomycin HCl 1,000 mg/ (Sodium Chloride) 250 mls @ 250 mls/hr IV Q48H [facility] Last Admin: 11/05/16 11:08 Dose: 250 mls/hr Insulin Glargine (Lantus) 10 unit SQ BID [facility] Last Admin: 11/05/16 21:27 Dose: 10 unit Insulin Human Lispro (Humalog) 0 unit SQ ACHS [facility] PRN Reason: Protocol Last Admin: 11/06/16 08:39 Dose: Not Given Ipratropium [place] (Atrovent) 2.5 ml NEB Q4HRT [facility] Last Admin: 11/06/16 07:12 Dose: 2.5 ml Lidocaine (Lidoderm) 1 patch TOPICAL DAILY@1600 [facility] Last Admin: 11/05/16 16:31 Dose: 1 patch Lidocaine (Lidoderm) 0 patch TOPICAL DAILY@0400 [facility] Last Admin: 11/06/16 04:30 Dose: Not Given Loratadine (Claritin) 10 mg PO QDAY [facility] Last Admin: 11/06/16 08:37 Dose: 10 mg Magnesium Hydroxide (Milk Of Magnesia) 30 ml PO DAILYP PRN PRN Reason: Constipation Naloxone HCl (Narcan) 0.1 mg IV Q2MIN PRN PRN Reason: Opiate Reversal Nitroglycerin (Nitrostat) 0.4 mg SL Q5-15MIN PRN PRN Reason: chest pain Ondansetron HCl (Zofran) 4 mg IV Q4-6HP PRN PRN Reason: Nausea And Vomiting Pantoprazole Sodium (Protonix) 40 mg PO QAMAC [facility] Last Admin: 11/06/16 07:28 Dose: 40 mg Dextran 70/Hypromellose [ Artificials Tears Drops] 1 dose OP TIDP PRN PRN Reason: dry eyes Nebivolol Hcl [ (Bystolic] 5 Mg) 1 dose PO BID [facility] Last Admin: 11/06/16 08:39 Dose: 1 dose Bismuth Subgallate ( (Devrom) 200 Mg Tab) 2 dose PO TIDPC [facility] Last Admin: 11/06/16 07:28 Dose: 2 dose Fluticasone/Salmeterol (Advair 250-50 Diskus) 1 puff INH Q12 [facility] Last Admin: 11/06/16 08:40 Dose: 1 dose Simvastatin (Zocor) 10 mg PO HS [facility] Last Admin: 11/05/16 21:26 Dose: 10 mg Sodium Chloride (Saline Flush) 10 ml IV Q8 [facility] Last Admin: 11/06/16 05:42 Dose: 10 ml Vancomycin HCl (Vancomycin Per Pharmacy) 1 order IV UD [facility] Vitamin B Complex (Vitamin B Complex) 1 cap PO DAILY [facility] Last Admin: 11/06/16 08:38 Dose: 1 cap Medical - PN: A/P - Time Spent With Patient Total time spent is greater than 50% in coordination of care (as documented) at patient's floor/unit and/or counseling patient: 25 - 35 minutes (ritical care time/discussion with family for initiation of palliative care) - Narrative A/P Narrative: * Hypoxic respiratory failure-secondary to aspiration pneumonia-start palliative measures in light of field treatment for 10 days * Septic shock- discontinue pressors based on patient's wishes * Bilateral aspiration pneumonia- * MRSA lung abscess- * Severe pulmonary artery hypertension * history of heart failure- * History of CAD * A. fib rate controlled * DM type [id number] * Ulcerative colitis * GERD on PPI * subcutaneous heparin for prophylaxis * Neuropathy * CKD-creatinine around baseline 1.5 * comfort care plan * transfer to medical floor * Initiate palliative measures * Discontinue pressors/antibiotics Medical - PN: Qual - VTE Deep Vein Thrombosis/Pulmonary Embolism Present on Admission: No
[2016-11-06] MEDS: INSULIN GLARGINE, HUMAN 1 UNIT/0.01 ML SQ SCH (11:03)
[2016-11-06] MEDS ORDERED: LORazepam 2 MG/ML VIAL IV PRN (13:24)
[2016-11-06] MEDS ORDERED: LACTOPEROXI/GLUC OXID/POT THIO 1 EACH GEL..EA. TOPICAL PRN (13:24)
[2016-11-06] MEDS: HYDROmorphone 2 MG/ML SYRINGE IV PRN (20:09)
[2016-11-06] MEDS: DOCUSATE SODIUM 100 MG CAPSULE PO SCH (20:14)
[2016-11-07] MEDS: HYDROmorphone 2 MG/ML SYRINGE IV PRN ×5 (04:01→23:03)
[2016-11-07] MEDS: 0.9 % SODIUM CHLORIDE 10 ML SYRINGE IV SCH ×3 (04:07→22:04)
--- NOTE | 2016-11-07 07:23 | Internal Med Progress Note ---
Medical - PN: Subj Patient information: Note initiated : 11/07/16 at 7:21 am Service Date, if different from initiated Date: [] Patient: Partha Samuels 81 y/o M admitted on 10/27/16 for SOB/Lt Lung Mass, COPD , PNA, Sepsis, CHF. Chief Complaint: [] Interval history: october 27, 2016:History of present illness: Mr. Samuels is a 81 year old male with multiple medical issues. presented to the ER with shortness of breath, increased generalized pain, and subjective sensation of pain and fever. The patient notes that he was doing well approximately upto 2 weeks ago, and since then he has been having gradual decline in his condition. He has intermittent bouts of shortness of breath. He admits to having cough with whitish greyish sputum, fever with temp of 99, chills and intermittent rigors. The patient is a poor historian and had significant tangentiality to his history. He notes that some times he gets sob while passing urine. but denies any burning urine, foul smelling urine or increased frequency of urination. He denies any abdominal pain, nausea and or vomiting. He has a ileostomy in place, but denies any change in bowel habits. The patient in the ER was noted to be tachycardic and tachypneic, the patient had elevated wbc count, elevated lactic acid, elevated gap, pt was at baseline renal function, had elevated BNP. CXR was reported as possible abscess in the right upper lobe. CT scan of the Chest shows a cavitary mass in the right upper lobe (night hawk read). Patient as admitted to the hospital with diagnosis of PNA, new onset mass (squamous cell Ca) . October 28: Patient seen examined, no acute overnight events, remains of 5L oxygen. He denies any new concerns. I reviewed the CT findings with him of possible mass vs abscess. I reviewed the CT with our radiologist who feels that this is abscess rather than a tumor. Night hawk read mentions likely malignant tumor. The radiologist does not feel that the mass/ abscess can be drained given severe empysema and risk of coverting abscess to empyema. patient remains on broad spectrum ABX vanco and imipenum. The patient remains of lasix for chf and cor pulmonale. Hemodynamically stable. I have consulted pulmonary for their guidance. Plan to sent fungal culture and stain, also afb and quantiferon which has been ordered. Pt placed in air borne isolation. October 29: This patient was admitted with signs and symptoms of pneumonia, but an unusual appearing infiltrate on his chest x-ray, suggesting the possibility of atypical pneumonia, versus abscess, versus lung cancer. He has known severe COPD/ emphysema. today,he notes his shortness of breath is much improved over admission. He says he has a pretty minimal, nonproductive, cough. He still feels chilled occasionally, but is unaware fever. He continues to have mild dyspnea on exertion, which he describes not only shortness of breath but as a feeling that his legs will collapse, if he tries to walk anywhere. He and his report that that sensation and weakness have been going on for about a week or so. However, she notes he really has not done that well, strength almonte, since he was discharged from rehabilitation, last year. He otherwise denies headaches or dizziness, sore throat, chest pain or palpitations, abdominal pain, nausea or vomiting, diarrhea or constipation, dysuria. -he continues to require high flow oxygen to maintain saturations above 90%. -He continues with elevated white blood cell countall which is essentially unchanged. -Nurses were concerned about giving him insulin last night, as blood sugars are generally ranging less than 200. He is on sliding scale insulin coverage. October 30: today, patient says he thinks he is feeling a little less short of breath with exertion although he does spend most of his time either in bed or in the chair. He continues to have a productive cough,but says he really doesn' t feel especially short of breath at rest. He tells me that last night while transferring from the chair back to the bed he suddenly got extremely weak, and essentially collapsed onto the bed. His nurse says that he seemed to have a staring spell that lasted a few seconds. His says he has episodes of this at home fairly often, and will sometimes changes color and start to look a little blue. He does appear to desaturate dramatically with any activity, and this is probably happening at home as well. He usesO2 2 L continuous at home, and his says that she has been reluctant to turn that up, for fear of causing CO2 retention. otherwise, he denies fever or chills sore throat, chest pain or palpitations, abdominal pain, nausea or vomiting, diarrhea or constipation, dysuria. October 31: - today, the patient notes he thinks he is having a little bit less shortness of breath with exertion compared to a couple of days ago. He is continuing to cough up phlegm, and says his chest feels clearer after he is able to cough up sputum. he denies fever or chills, or significant wheezing. -sputum culture today is growing MRSA. -He tells me today, that while he hurts all over, he is having quite a bit of pain in the right knee. He says when he stands up, the knee pain goes up significantly, and is interfering with his attempts at ambulation. -otherwise, he denies headaches or dizziness, chest pain or palpitations, abdominal pain, nausea or vomiting, diarrhea or constipation, dysuria. November 01: -the patient actually is feeling quite a bit better today. He still has a cough productive ofa lot of sputum, but is generally feeling less short of breath. Physical therapy said he did seem stronger today, when trying to transfer from bed to chair. we had him use an oxi-mask yesterday and last night, and that did a better job at maintaining his O2 saturations but he does complain that it makes him feel quite claustrophobic, so did go back to the nasal cannula this morning. Even while talking with me in the room with a nasal cannula on he will drop his O2 saturations into the 70s, and fingernails will turn blue. -I did hold his oral bumex, so that we could add Norvasc, to try to help with pulmonary hypertension issues. Blood pressures are running borderline low but he is of course also having some increased edema in his legs and scrotum. -right knee pain is a bit better today, using both Tylenol with Codeine as well as the Lidoderm patch. patient otherwise denies fever or chills, headaches or dizziness, chest pain He continues to have dyspnea with minimal exertion. He denies abdominal pain, nausea or vomiting, diarrhea or constipation. Serrano catheter remains in place, as staff does not feel that he can get up and down to use a urinal. November 02: he patient says he is feeling even better today, than yesterday. He feels that he is a little less short of breath. He is very pleased that his right knee pain seems to be better, especially since the Lidoderm patch. He is wondering how long he will need antibiotics and wondering if he needs a longer term IV. Otherwise, he denies fever or chills, although he notes he always feels cold towards evening. He denies chest pain or palpitations. He does have a productive cough still. he denies abdominal pain, nausea or vomiting, diarrhea or constipation. he still has his Serrano catheter in place, and we discussed removing that, but hethinks he is still too weak to stand up frequently to use a urinal. His nurses agree with that. 11/03- patient feeling a lot better. Sitting on chair with his at bedside. No overnight fever chills or concerns per staff. White count down to 7.8.stable hemodynamics and vitals. creatinine 1.5. continue antibiotic coverage 18:00 Patient was noticed significantly short of breath along with shaking chills. Stat lactic acid 3.9. Blood gas PaO2 68 on 15 L oxygen. Transfer to ICU in light of hypoxic respiratory failure. Stat chest x-ray. patient and septic shock. On pressors. X-ray shows bilateral infiltrates likely aspiration pneumonia. Patient is a no code 11/04- on 10 L oxygen. Profound hypoxic respiratory failure. aspiration pneumonia. Continue broad antibiotic coverage. On pressors. Map at goal. Critically ill. [place] score 18. High risk mortality. informed about poor prognosis. If patient fails to respond to conventional treatment would contemplate comfort care measures. Continue ICU care 11/05- patient doing well. Overnight persistent hypoxia. No concerns per staff. no symptoms of agitation and delirium.on 10 L oxygen however more lucid and alert and less labored. MAXIMUM TEMPERATURE 102 with overnight shaking chills. Blood cultures pending. White count from 14-17,000. at bedside. Continue physical therapy ADDENDUM- case discussed with patient and . In light of failure to respond to conventional treatment for over 9 days with aggressive antibiotics and pressors patient and decided for initiation of palliative interventions for end of life care if patient fails to improve in the next 24 hours 11/06- patient on continued pressors. T-Max 101. White count down to 13,000 however clinically unchanged. Patient and recommendations initiation of palliative measures for end of life care and discontinuation iCU treatment/ procedures. Patient will be transferred to medical floor on palliative interventions including aggressive pain and symptom management 11/07-patient on comfort care measures. No overnight events except for occasional itching. On regular diet. Doing well. No active concerns for patient or staff - Constitutional Vitals: Vital Signs Temp Pulse Resp BP Pulse Ox 97.6 F 90 22 93/60 88 L 11/07/16 06:47 11/06/16 20:00 11/07/16 06:47 11/07/16 06:47 11/07/16 06:47 Period Temp Pulse Resp BP Sys/[place] Pulse Ox Last 24 Hr 97.6 F-98.9 F 90-103 18-24 93-109/52-79 88-100 Intake and Output 11/06/16 11/07/16 11/07/16 21:59 05:59 13:59 Intake Total 440 / 440 Output Total 975 / 975 350 / 350 Balance -975 / -975 90 / 90 Weight 229 lb Intake & Output: Intake & Output 11/06/16 11/07/16 11/07/16 21:59 05:59 13:59 Intake Total 440 / 440 Output Total 975 / 975 350 / 350 Balance -975 / -975 90 / 90 Weight 229 lb Intake: Oral 440 / 440 Output: Urine Catheter Amount 525 / 525 350 / 350 Stool 450 / 450 General appearance: cooperative, no acute distress Exam: further exam deferred in light of comfort Medical - PN: Obj Da - Labs CBC & Chem 7: 11/06/16 03:40 11/06/16 03:40 Labs: Abnormal Lab Results 11/06/16 11/06/16 11/05/16 03:40 03:40 03:35 WBC Hgb 13.4 L RDW 18.2 H Seg Neutrophils % 79 H Lymphocytes % 5 L RBC Morphology Abnorm A Anisocytosis 1+ A Ovalocytes BUN 33 H 32 H Creatinine 1.6 H 1.5 H Glucose 147 H 150 H Uric Acid 11.1 H 10.9 H Magnesium 1.5 L Direct Bilirubin 0.4 H GGT 76 H 84 H Lactate Dehydrogenase 298 H 361 H Total Protein 5.8 L Albumin 2.7 L 2.9 L Albumin/Globulin Ratio 0.9 L 0.9 L 11/05/16 11/04/16 03:35 04:30 WBC 17.1 H Hgb RDW 19.0 H Seg Neutrophils % 86 H 80 H Lymphocytes % 1 L 4 L RBC Morphology Abnorm A Abnorm A Anisocytosis 2+ A 1+ A Ovalocytes 1+ A BUN Creatinine Glucose Uric Acid Magnesium Direct Bilirubin GGT Lactate Dehydrogenase Total Protein Albumin Albumin/Globulin Ratio Meds: Medications Diphenhydramine HCl (Benadryl) 25 mg PO Q4HP PRN PRN Reason: Allergic Symptoms Docusate Sodium (Colace) 100 mg PO BID [facility] Last Admin: 11/06/16 20:14 Dose: Not Given Glucose Oxid/Lactoperoxid/Muramidas (Biotene) 1 each TOPICAL PRN PRN PRN Reason: Dry Mouth Hydromorphone HCl (Dilaudid) 0 mg IV Q2HP PRN PRN Reason: Pain Last Admin: 11/07/16 04:01 Dose: 0.5 mg Lorazepam (Ativan) 0 mg IV Q1HP PRN; Protocol PRN Reason: ANXIETY/SEDATION Last Admin: 11/06/16 16:54 Dose: 1 mg Morphine Sulfate (Morphine) 0 mg IV Q1HP PRN PRN Reason: Pain Sodium Chloride (Saline Flush) 10 ml IV Q8 [facility] Last Admin: 11/07/16 04:07 Dose: 10 ml Medical - PN: A/P - Time Spent With Patient Total time spent is greater than 50% in coordination of care (as documented) at patient's floor/unit and/or counseling patient: 15 - 24 minutes - Narrative A/P Narrative: * Hypoxic respiratory failure-secondary to aspiration pneumonia- continue palliation in light of failed treatment and recurrent aspiration * Septic shock- aggressive treatment discontinued. On palliation * Bilateral aspiration pneumonia * MRSA lung abscess other prior medical issues as below will be managed on as needed basis for comfort * Severe pulmonary artery hypertension * history of heart failure- * History of CAD * A. fib * DM type [id number] * Ulcerative colitis * GERD on PPI * subcutaneous heparin for prophylaxis * Neuropathy * CKD-creatinine around baseline 1.5 plan * continue palliation * case management to arrange care center transfer for end of life care Medical - PN: Qual - VTE Deep Vein Thrombosis/Pulmonary Embolism Present on Admission: No
[2016-11-07] MEDS: diphenhydrAMINE 25 MG CAPSULE PO PRN ×2 (07:33→19:47)
[2016-11-07] MEDS: DOCUSATE SODIUM 100 MG CAPSULE PO SCH ×2 (11:10→20:53)
[2016-11-07] MEDS ORDERED: ONDANSETRON 4 MG/2 ML VIAL IV PRN (22:54)
[2016-11-07] MEDS ORDERED: PROMETHAZINE 25 MG/ML VIAL IV PRN (22:55)
[2016-11-07] MEDS ORDERED: ONDANSETRON 4 MG/2 ML VIAL ONE (22:58)
[2016-11-08] MEDS ORDERED: PROMETHAZINE 25 MG/ML VIAL ONE (01:17)
--- NOTE | 2016-11-09 07:01 | Discharge Summary ---
DATE OF ADMISSION: 10/27/2016 DATE OF DISCHARGE: 11/08/2016 CAUSE OF : Progressive hypoxic respiratory failure in light of severe sepsis and recurrent aspiration. EVENTS LEADING TO CAUSE OF : 1. Hypoxic respiratory failure. 2. Septic shock. 3. Bilateral aspiration pneumonia. 4. Lung abscess. HOSPITAL COURSE: For details to the hospital course, events for the 10 days of hospitalization, please refer to progress notes. The patient was made comfort care after failure of treatment for 10 days as per wishes of the family, including and patient. Over the ensuing 24 hours, the patient continued to deteriorate and finally succumbed to hypoxic respiratory failure on the morning of 11/08. AA:chris Job ID: [id number] Doc ID: [id number] Leodan Sanchez MD MTDD
[2016-11-10 15:56] LABS: Histoplasma Mycelial AB <1:8 (<1:8)
== END 2016-11-08 04:23 | disposition expired | DRG 871 ==
LOC: ED 15:36 → SUATTDRO 19:05 → ICU 19:05 → MEDSUR 11-03 16:28 → ICU 11-03 19:05 → MEDSUR 11-06 12:44
PROVIDERS: ADMIT Internal Medicine; ATTEND Internal Medicine